=== PATIENT | female | born 2000 | race Caucasian/White ===

== ENCOUNTER → 2020-09-05 | Outpatient (CLI) | payer OTHER, SELFPAY ==
[2020-09-05 14:38] VITALS: BMI 22.4
[2020-09-05 18:32] LABS: Chlamydia Trachomatis by PCR Negative (Negative); Neisserai gonorrhoeae by PCR Negative (Negative); Probe Check PASS; Sample Adequacy Control PASS; Specimen Processing Control PASS
== END | disposition home or self-care (01) ==
LOC: LABSPEC 15:38
PROVIDERS: PCP Pediatrics; Referring Provider Nurse Practitioner Women's Health; Visit Provider Nurse Practitioner Women's Health
DX: Z11.3 Encounter for screening for infections with a predominantly sexual mode of transmission (principal)
CPT/HCPCS: 87491; 87591

== ENCOUNTER → 2021-09-06 | Outpatient (CLI) | payer OTHER, SELFPAY ==
[2021-09-11 01:06] LABS: Chlamydia By Nucleic Acid AMP Negative (Negative)
[2021-09-11 09:13] LABS: Gonococcus By Nucleic Acid AMP Negative (Negative)
[2021-09-12 16:58] LABS: HPV Reflexed? NOT INDICATED
== END | disposition home or self-care (01) ==
LOC: LABSPEC 16:23
PROVIDERS: PCP Pediatrics; Visit Provider Nurse Practitioner Women's Health
DX: Z12.4 Encounter for screening for malignant neoplasm of cervix (principal); Z11.3 Encounter for screening for infections with a predominantly sexual mode of transmission
CPT/HCPCS: 87491; 87591; 88175; G0145

== ENCOUNTER → 2024-09-28 | Outpatient (CLI) | payer OTHER, SELFPAY ==
--- OUTSIDE RECORDS SUMMARY | 2024-09-28 21:24 | XMS RPT_ITS | CCD ---
Author Organization [facility] Care Team Providers Care Forensic Engineer Name Role Phone Rufus Martinez Referring Unavailable Rufus Martinez Primary Care Unavailable Lenore Au NP Attending Unavailable Juan MCCLOUD, Dr. Rufus Clark Primary Care Provider Juan MCCLOUD, Dr. Rufus Clark Referring Provider Roe GIANG-CLenore Attending Provider Allergies Allergy Classification Reported Allergen(s) Allergy Type Date of Onset Reaction(s) Facility (1 source) Amoxicillin Drug Allergy 09-25-2023 [facility] (1 source) Penicillin Drug Allergy 09-25-2023 [facility] (1 source) polymyxin B Drug allergy (disorder) 09-25-2023 [facility] (1 source) Amoxicillin Drug Allergy 09-28-2024 [facility] (1 source) Penicillin G Drug Allergy 09-28-2024 [facility] (1 source) Polymyxin B Drug Allergy 09-28-2024 [facility] Medications Current Medications Medication Drug Class(es) Dates Sig (Normalized) Sig (Original) [place] (Nk) (1 source) Start: 09-28-2024 [place] (Nk) A ctive September 28, 2024 12:00am Completed/Discontinued Medications Medication Drug Class(es) Dates Sig (Normalized) Sig (Original) Desog-E.Estradiol/ E.Estradiol (1 source) Progestin, Estrogen Start: 01-28-2017 End: 03-26-2017 take 0.15 tablet by mouth once daily Desog-E.Estradiol/E .Estradiol (Loganiva (28)) 0.15-0.02 mgx21 /0.01 mg x 5 tablet Discontinued 1 {tbl} PO daily 28 January 28, 2017 1:00am March 26, 2017 4:05pm Drospirenone-E.Est radiol-Lm.Fa (10 sources) Progestin, Estrogen Start: 04-11-2024 End: 09-28-2024 Drospirenone-E.Estr adiol-Lm.Fa 3-0.02-0.451 mg (24) (4) tablet Discontinued 1 {tbl} PO DAILY 84 2 April 11, 2024 3:41pm September 28, 2024 3:29pm Start: 09-25-2023 End: 04-11-2024 Drospirenone-E.Estradiol-Lm. Fa 3-0.02-0.451 mg (24) (4) tablet Discontinued 1 {tbl} PO DAILY 84 4 September 25, 2023 3:51pm April 11, 2024 3:41pm Start: 11-13-2022 End: 09-25-2023 Drospirenone-E.Estradiol-Lm. Fa 3-0.02-0.451 mg (24) (4) tablet Discontinued 1 {tbl} PO DAILY 84 4 November 13, 2022 4:19pm September 25, 2023 3:51pm Start: 09-25-2021 End: 11-13-2022 Drospirenone-E.Estradiol-Lm. Fa 3-0.02-0.451 mg (24) (4) tablet Discontinued 1 {tbl} PO DAILY 84 4 September 25, 2021 12:21pm November 13, 2022 4:19pm Start: 09-06-2021 End: 09-25-2021 Drospirenone-E.Estradiol-Lm. Fa 3-0.02-0.451 mg (24) (4) tablet Discontinued 1 {tbl} PO DAILY 84 4 September 06, 2021 3:10pm September 25, 2021 12:21pm Start: 01-31-2021 End: 09-06-2021 Drospirenone-E.Estradiol-Lm. Fa 3-0.02-0.451 mg (24) (4) tablet Discontinued 1 {tbl} PO DAILY 84 2 January 31, 2021 9:04am September 06, 2021 3:10pm Start: 09-05-2020 End: 01-31-2021 Drospirenone-E.Estradiol-Lm. Fa 3-0.02-0.451 mg (24) (4) tablet Discontinued 1 {tbl} PO DAILY 84 4 September 05, 2020 2:50pm January 31, 2021 9:04am Start: 08-17-2020 End: 09-05-2020 Drospirenone-E.Estradiol-Lm. Fa 3-0.02-0.451 mg (24) (4) tablet Discontinued 1 {tbl} PO DAILY 84 0 August 17, 2020 11:04am September 05, 2020 2:50pm Start: 06-23-2019 End: 08-17-2020 Drospirenone-E.Estradiol-Lm. Fa 3-0.02-0.451 mg (24) (4) tablet Discontinued 1 {tbl} PO DAILY 84 4 June 23, 2019 9:30am August 17, 2020 11:04am Start: 05-05-2018 End: 06-23-2019 Drospirenone-E.Estradiol-Lm. Fa 3-0.02-0.451 mg (24) (4) tablet Discontinued 1 {tbl} PO DAILY 84 4 May 05, 2018 12:00am June 23, 2019 9:30am Norethindrone-E.Estradiol-Ir on (2 sources) Estrogen Start: 06-24-2017 End: 05-05-2018 take 1 tablet by mouth once daily Norethindrone-E.Estradiol-Iron () 1 mg-20 mcg (24)/75 mg (4) tablet Discontinued 1 {tbl} PO daily 84 June 24, 2017 3:11pm May 05, 2018 3:03pm take only active pills discard inactive start new pack immediately Start: 03-26-2017 End: 06-24-2017 Norethindrone-E.Estradiol-Ir on () 1 mg-20 mcg (24)/75 mg (4) tablet Discontinued 1 {tbl} PO daily 28 3 March 26, 2017 1:00am June 24, 2017 3:12pm Problems Problem Classification Problem Date Documented Da te Episodic/Chronic Menstrual disorders (1 source) Menorrhagia; Translations: [Excessive and frequent menstruation with regular cycle] 01-28-2017 Chronic Other gastrointestinal disorders (1 source) Celiac disease; Translations: [Celiac disease] 09-12-2022 Chronic Vital Signs Date Time Vital Sign Value Performing Clinician Ashley desirae 09-28-2024 15:27-0400 Body height 160.[address] Rufus Martinez MD Work Phone: [facility] 09-28-2024 15:27-0400 Body mass index (BMI) [Ratio] 23.6 kg/m2 Dr. Rufus Martinez MD Work Phone: [facility] 09-28-2024 15:27-0400 Body weight 60.[address] Rufus Martinez MD Work Phone: [facility] 09-28-2024 15:27-0400 Diastolic blood pressure 73 mm[Hg] Dr. Rufus Martinez MD Work Phone: [facility] 09-28-2024 15:27-0400 Systolic blood pressure 106 mm[Hg] Dr. Rufus Martinez MD Work Phone: [facility] Encounters Encounter Date Encounter Type Care Provider Facility Start: 09-28-2024 End: 09-28-2024 Patient encounter procedure Lenore Au INDUSTRIAL SPECIALIST-C -[facility] Work Phone: Start: 09-28-2024 End: 09-28-2024 Patient encounter status Lenore Au INDUSTRIAL SPECIALIST-C [facility] Start: 09-28-2024 End: 09-28-2024 ambulatory Rufus Martinez Facility[place] Plan of Treatment Date Care Activity Detail Author Liquid based cervical cytology screening [facility] Payers Date Payer Category Payer Self-pay 2024 Private Health Insurance [id number] 2016 Unknown [id number] Unknown [id number] Unknown [id number] Social History Date Type Detail Facility Start: 09-28-2024 Tobacco smoking stat us MNIS Never smoked tobacco (finding) [facility] Start: 2000 Sex Assigned At Female [facility] Progress note 09-28-2024 Note Date & Type Note Facility 09-28-2024 Progress note [facility] Progress note 09-28-2024 Note Date & Type Note Facility 09-28-2024 Progress note Note Date/Time September 28, 2024 3:44pm [facility] [address] [place] [address], [address] [place] [address] OFFICE VISIT Date of Service: 09/28/24 MR#: [id number] Acct: [id number] Name: ROSALVA STEINBERG Rep #: [id number] : 2000 Provider: BERT Au Age/Sex: 24/F Location: [facility] Status: Signed Intake Vital Signs 09/25/23 15:45 09/28/24 15:27 Height 5 ft 3 in 5 ft 3 in Weight: 133 lb 7 oz BMI 23.6 BP 106/73 Intake Visit Reasons: Annual (LUMP MAKER) Loader Machine Required: No Is patient in pain?: No Allergies amoxicillin Allergy (Mild, Verified 09/28/24 15:35) Hives penicillin G Allergy (Mild, Verified 09/28/24 15:35) Hives polymyxin B Allergy (Mild, Verified 09/28/24 15:35) Hives Medications ?Medication ?Instructions ?Recorded ?Confirmed ?Type NK 09/28/24 09/28/24 History Is last menstrual period known: Yes Last Menstrual Period: 08/27/24 Post menopausal: No Patient : No : No Control Method: condoms [facility] Medical History Celiac disease Surgical History History of wisdom tooth extraction, class II edentulism Social History (Updated 09/28/24 @ 15:43 by BERT Turner NP) adopted: No household members: spouse number of children: 0 current occupational status: employed current occupation: [employer] sexually active: Yes Smoking Status: Never smoker alcohol intake: current alcohol intake frequency: holidays/special occasions only substance use type: does not use caffeine: No frequency: 3-4 times per week rudolph/nondenominational: Zoroastrian seatbelt use: always do you feel safe at home: Yes 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 [employer]. 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 Off OCP X 1 months. Using condoms. May try for next year. July 2024. Last PAP: 2021; normal. History of abnormal PAP: no Last mammogram: age 40 History of abnormal mammogram: n/a Colon cancer screening: age 45 Other preventative health care screenings: Dr Rowley Female Reproductive History Last Menstrual Period: 08/27/24 Cycle Length: 21-35 Questions: metrorrhagia: No, sexually active: Yes, dyspareunia: No and PCB: No ROS Const Constitutional: Denies fatigue, weight gain or weight loss Cardio Card: Denies chest pain Resp Resp: Denies cough or dyspnea on exertion GI GI: Denies abdominal pain, bloating, change in stool character, constipation or vomiting : Reports as per HPI; Denies difficulty voiding, pelvic pain, urinary frequency, urinary incontinence,urinary urgency, vaginal discharge or vaginal pruritus Exam Const General: cooperative, healthy appearing, no acute distress and well developed Orientation: alert, oriented to person and oriented to place HENMT Head: normal to inspection Neck Neck: normal visual inspection Thyroid: thyroid normal Lymphatic: no lymphadenopathy noted Chest Breast inspection: normal inspection of the breasts and normal inspection of theaxillae Breast palpation: normal palpation of the breasts, normal palpation of the axillae and no axillary lymphadenopathy Resp Effort & Inspection: normal respiratory effort GI Palpation: soft, no masses and nontender Rectal Exam: deferred External Female Exam: normal external appearance and normal appearance of the urethra Urethra: normal appearance of the urethra and normal palpation Speculum Exam - Vagina: normal appearance of the vagina and normal vaginal discharge Speculum Exam - Cervix: normal appearance of the cervix Bimanual Exam- Vagina & Uterus: normal bimanual exam, uterine size normal, uterine shape normal and non-tender Bimanual Exam- Adnexa, other: normal adnexae, no masses, normal and non-tender Pelvic Support: normal Neuro General: patient alert and patient oriented x3 Psych Affect: normal affect Coding Level of Care Code Off vis,est,prev 18-39yrs Diagnoses Encounter for gynecological examination without abnormal finding Z01.419 Gynecological examination findings: abnormal findings ABSENT Assessment and Plan Assessment and Plan (1) Encounter for routine gynecological examination: Qualifiers: Gynecological examination findings: abnormal findings ABSENT Qualified Code(s): Z01.419 - Encounter for gynecological examination (general) (routine) without abnormal findings Orders: Orders PAP I-G w/rfx hrHPV-Aptima Today Z12.4 - Encounter for screening for malignant neoplasm of cervix Plan Completed breast and pelvic exam Reviewed diet and exercise Pap thin prep pap start vitamin breast self exam encouraged monthly Contraception condoms RTO 1 year, prn with problems Lenore Au SIGN HANGER 09/28/24 1544 <Electronically signed by Lenore quezada INDUSTRIAL SPECIALIST INDUSTRIAL SPECIALIST-C> Date _ Lenore Au INDUSTRIAL SPECIALIST INDUSTRIAL SPECIALIST-C Cosigner Signature: Date (if applicable) CC: ~ [facility] Work Phone: Evaluation note Note Date & Type Note Facility Evaluation note Diagnosis Onset Date Resolution Encounter for routine gynecological examination noneactive September 28 3:25pm [facility] Work Phone: Reason for referral (narrative) Note Date & Type Note Facility Reason for referral (narrative) No reason for referral information available [facility] Work Phone: Summary Purpose Family History No Family History Records Found Advance Directives No Advanced Directives Records Found Chief Complaint and Reason for Visit Chief Complaint Admit Date Annual (LUMP MAKER) September 28, 2024 3: 25pm Reason for Visit Admit Date Encounter for routine gynecological exam ination September 28, 2024 3:25pm Additional Source Comments INFORMATION SOURCE (unrecogn ized section and content) DATE CREATED AUTHOR 09/25/2024 [facility] Care Teams (unrecognized sec tion and content) Team Status: Active Member Role/Relationship Status Dates Dr. Rufus Martinez MD Family Provider Active Dr. Rufus Martinez MD Primary Care Provider Active Team Status: Inactive Member Role/Relationship Status Dates Dr. Rufus Martinez MD Primary Care Provider Active Start: September 28, 2024 End: September 28, 2024 Dr. Rufus Martinez MD Referring Provider Active Start: September 28, 2024 End: September 28, 2024 Lenore Au NP, INDUSTRIAL SPECIALIST-C Attending Provider Active Start: September 28, 2024 End: September 28, 2024 Goals (unrecognized section and content) Goals may be documented in a n alternate section FOR RECORDS PERTAINING TO PATIENTS WHO ARE OR HAVE BEEN ENROLLED IN A CHEMICAL DEPENDENCY/SUBSTANCEABUSE PROGRAM, SOME INFORMATION MAY BE OMITTED. This clinical summary was aggregated from multiple sources. Caution should be exercised in using it in the provision of clinical care. This summary normalizes information from multiple sources, and as a consequence, information in this document may materially change the coding, format and clinical context of patient data. In addition, data may be omitted in some cases. CLINICAL DECISIONS SHOULD BE BASED ON THE PRIMARY CLINICAL RECORDS. [employer] provides no warranty or guarantee of the accuracy or completeness of information in this document.
--- OUTSIDE RECORDS SUMMARY | 2024-09-28 21:24 | XMS RPT_ITS | CCD ---
Author Organization [facility] Care Team Providers Care Sweeping Compound Blender Name Role Phone Rufus Martinez Referring Unavailable Rufus Martinez Primary Care Unavailable Lenore Au NP Attending Unavailable Juan MCCLOUD, Dr. Rufus Clark Primary Care Provider Juan MCCLOUD, Dr. Rufus Clark Referring Provider Roe GIANG-CLenore Attending Provider Allergies Allergy Classification Reported Allergen(s) Allergy Type Date of Onset Reaction(s) Facility (1 source) Amoxicillin Drug Allergy 09-25-2023 [facility] Repository (1 source) Penicillin Drug Allergy 09-25-2023 [facility] Rep[facility] (1 source) polymyxin B Drug allergy (disorder) 09-25-2023 [facility] Rep[facility] (1 source) Amoxicillin Drug Allergy 09-28-2024 [facility] (1 source) Penicillin G Drug Allergy 09-28-2024 [facility] (1 source) Polymyxin B Drug Allergy 09-28-2024 [facility] Medications Current Medications Medication Drug Class(es) Dates Sig (Normalized) Sig (Original) [place] (Nk) (1 source) Start: 09-28-2024 [place] (Nk) A ctive September 28, 2024 12:00am [...] cm Dr. Rufus Martinez MD Work Phone: [facility] 09-28-2024 15:27-0400 Body mass index (BMI) [Ratio] 23.6 kg/m2 Dr. Ruufs Martinez MD Work Phone: [facility] 09-28-2024 15:27-0400 Body weight 60.[address] Rufus Martinez MD Work Phone: [facility] 09-28-2024 15:27-0400 Diastolic blood pressure 73 mm[Hg] Dr. Rufus Martinez MD Work Phone: [facility] 09-28-2024 15:27-0400 Systolic blood pressure 106 mm[Hg] Dr. Rufus Martinez MD Work Phone: [facility] Encounters Encounter Date Encounter Type Care Provider Facility Start: 09-28-2024 End: 09-28-2024 Patient encounter procedure Lenore Au CONE BAKER MACHINE-C -[facility] Work Phone: Start: 09-28-2024 End: 09-28-2024 Patient encounter status Lenore Au CONE BAKER MACHINE-C [facility] Start: 09-28-2024 End: 09-28-2024 ambulatory Rufus Martinez Facility:[facility] Plan of Treatment Date Care Activity Detail Author Liquid based cervical cytology screening [facility] Payers Date Payer Category Payer Self-pay 2024 Private Health Insurance [id number] 2016 Unknown [id number] Unknown [id number] Unknown [id number] Social History Date Type Detail Facility Start: 09-28-2024 Tobacco smoking stat us NDIS Never smoked tobacco (finding) [facility] Start: 2000 Sex Assigned At Female [facility] Progress note 09-28-2024 Note Date & Type Note Facility 09-28-2024 Progress note [facility] Progress note 09-28-2024 Note Date & Type Note Facility 09-28-2024 Progress note Note Date/Time September 28, 2024 3:44pm [facility] [address] [place] [address], [address] [place] [address] OFFICE VISIT Date of Service: 09/28/24 MR#: [id number] Acct: [id number] Name: ROSALVA STEINBERG Rep #: [id number] : 2000 Provider: BERT Au Age/Sex: 24/F Location: [facility] Status: Signed Intake Vital Signs 09/25/23 15:45 09/28/24 15:27 Height 5 ft 3 in 5 ft 3 in Weight: 133 lb 7 oz BMI 23.6 BP 106/73 Intake Visit 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) Mat Machine Operator Required: No Is patient in pain?: No Allergies amoxicillin Allergy (Mild, Verified 09/28/24 15:35) Hives penicillin G Allergy (Mild, Verified 09/28/24 15:35) Hives polymyxin B Allergy (Mild, Verified 09/28/24 15:35) Hives Medications ?Medication ?Instructions ?Recorded ?Confirmed ?Type NK 09/28/24 09/28/24 History Is last menstrual period known: Yes Last Menstrual Period: 08/27/24 Post menopausal: No Patient : No : No Control Method: condoms [facility] Medical History Celiac disease Surgical History History of wisdom tooth extraction, class II edentulism Social History (Updated 09/28/24 @ 15:43 by BERT Turner NP) adopted: No household members: spouse number of children: 0 current occupational status: employed current occupation: [employer] sexually active: Yes Smoking Status: Never smoker alcohol intake: current alcohol intake frequency: holidays/special occasions only substance use type: does not use caffeine: No frequency: 3-4 times per week rudolph/spiritism: Sabianist seatbelt use: always do you feel safe at home: Yes 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 [employer]. 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 Elective [...] 1 year, prn with problems Lenore Au AGRICULTURAL RESEARCHER 09/28/24 1544 <Electronically signed by Lenore quezada CONE BAKER MACHINE CONE BAKER MACHINE-C> Date _ Lenore Au CONE BAKER MACHINE CONE BAKER MACHINE-C Cosigner Signature: Date (if applicable) CC: ~ [facility] Work Phone: Evaluation note Note Date & Type Note Facility Evaluation note Diagnosis Onset Date Resolution Encounter for routine gynecological examination noneactive September 28 3:25pm [facility] Work Phone: Reason for referral (narrative) Note Date & Type Note Facility Reason for referral (narrative) No reason for referral information available [facility] Work Phone: Summary Purpose Family History No Family History Records Found Advance Directives No Advanced Directives Records Found Chief Complaint and Reason for Visit Chief Complaint Admit Date Annual (REPORTING SPECIALIST) September 28, 2024 3: 25pm Reason for [...] End: September 28, 2024 Lenore Au NP, CONE BAKER MACHINE-C Attending Provider Active Start: September 28, 2024 [...] BE BASED ON THE PRIMARY CLINICAL RECORDS. [employer] provides no warranty or guarantee of the accuracy or completeness of information in this document.
== END | disposition home or self-care (01) ==
LOC: LABSPEC 16:07
PROVIDERS: PCP Pediatrics; Visit Provider Nurse Practitioner Women's Health
DX: Z12.4 Encounter for screening for malignant neoplasm of cervix (principal)
CPT/HCPCS: 88175; G0145

== ENCOUNTER 2024-12-11 14:21 | Emergency (ER) | payer OTHER, SELFPAY ==
[2024-12-11 14:22] VITALS: BP 128/88; PULSE 89; RESP 17; TEMP 36.8; O2SAT 100; BMI 23.3
[2024-12-11 14:28] VITALS: BP 122/88; PULSE 88; RESP 16; TEMP 36.8; O2SAT 98
--- NOTE | 2024-12-11 14:34 | EDS_ITS ---
HPI History of Present Illness Chief Complaint: Abd Pain Detail of Chief Complaint: Left lower quadrant/inguinal pain Informant: patient Onset/Context/Timing Onset: Days (4 days ago) Context: Sudden Onset Timing: Intermittent and Lasts (Up to 5 to 6-hour) Quality: Dull achy Location: Left lower quadrant superior of the inguinal ligament Current Severity: Mild Maximum Severity: Moderate Worsened by: Nothing specific, states it is worse at night Relieved by: Nothing Associated Symptoms Associated Symptoms: None Narrative Narrative: Patient is a 24-year-old female whose last normal menstrual period was November 29 who presents with left lower quadrant pain has been intermittent for the past 4 days. Can last up to 5 to 6 hours. There are no exacerbating, precipitating or alleviating factors other than it is worse at night. She denies fever, chills night sweats. She denies history of ovarian cyst, endometriosis, STI, vaginal discharge or vaginal bleeding. Has never had an abnormal Pap smear. Patient denies dysuria, frequency, urgency or hematuria. Patient denies history of renal or ureterolithiasis. There is no family history of either either. There is no history of trauma direct or indirect. She has not noted a rash. She does have a bump she felt and localizes near the superior iliac spine on the left. Prior similar symptoms: No Recent Illness/Hospitalization: No PFSH PFSH Medical History Celiac disease Home Medications ?Medication ?Instructions ?Recorded ?Last Taken ?Type naproxen 500 mg tablet (Naprosyn) 500 mg PO BID PRN pa in #10 tabs 12/11/24 Unknown Rx Allergy/AdvReac Type Severity Reaction Status Date / Time amoxicillin Allergy Mild Hives Verified 12/11/24 14:22 penicillin G Allergy Mild Hives Verified 12/11/24 14:22 polymyxin B Allergy Mild Hives Verified 12/11/24 14:22 Surgical History History of wisdom tooth extraction, class II edentulism Social History adopted: No household members: spouse housing: house number of children: 0 current occupational status: employed current occupation: [employer] sexually active: Yes Smoking Status: Never smoker alcohol intake: current alcohol intake frequency: holidays/special occasions only substance use type: does not use caffeine: No frequency: 3-4 times per week rudolph/sabianist: Mandaen seatbelt use: always do you feel safe at home: Yes 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 Constitutional Constitutional ED: Denies chills, fever(s), subjective, sweats or weight loss Gastrointestinal Gastrointestinal: Reports abdominal pain; Denies constipation, diarrhea, melena, nausea or vomiting Genitourinary Genitourinary ED: Reports LMP (females 10-50) Details: Comment: (November 29 and ); Denies dysuria, hematuria or urinary frequency Musculoskeletal Musculoskeletal: Denies arthralgias, back pain, myalgias or neck pain Integumentary Denies rash Hematologic/Lymphatic Hematologic/Lymphatic: Reports systems reviewed and no addt'l complaints, except as documented EXAM Physical Exam Const Vital Signs: 12/11/24 14:22 12/11/24 14:28 12/11/24 16:22 Temperature 98.3 F 98.3 F Temperature Source Oral Oral Pulse Rate 89 88 81 Respiratory Rate 17 16 16 Blood Pressure 128/88 H 122/88 H 107/76 Blood Pressure Mean 101 99 86 Pulse Ox 100 98 100 Oxygen Delivery Method Room Air Room Air Room Air Positive well nourished and well developed General Appearance ED: well developed, NAD and pallor; Negative for cyanotic or diaphoretic HEENT Reports moist mucous membranes HEENT Narrative: Grossly normal. Eyes PERRL and EOMs intact bilaterally General Eye ED: Negative for scleral icterus Resp normal respiratory effort Cardio regular rate and regular rhythm GI normal to inspection, nondistended, normoactive bowel sounds, non-distended and no masses; Negative for non-tender or hepatosplenomegaly GI Narrative: Tenderness left lower quadrant 2 fingerbreadths above the inguinal ligament. There is guarding in this area. There is no palpable mass. Bowel sounds are diminished. There is slight tympany noted. There is no peritoneal findings. There is some tenderness in the left inguinal area. There is no palpable lymph nodes or mass. Narrative: External genitalia normal. Vaginal mucosa is normal. Patient cervix is oblong and not consistent with a normal part of cervix. She has tenderness of the uterus on palpation. She guards and difficult to assess size. She also complains of right and left adnexal pain greater left. Because of patient guarding unable to determine size of her ovaries. Back/Spine Back/Spine Narrative: Patient has a lipoma near the posterior left superior iliac spine. The nodule is firm smooth mobile and nontender. There is no abnormality of the skin overlying the lipoma. There is no retraction. Extremity normal to inspection Neuro oriented x3 and CN's II-XII intact bilaterally Sensorium / Orientation: alert Psych mental status grossly normal Skin no rashes or lesions noted, no wounds and skin turgor normal General Skin Exam: elasticity normal and pallor; Negative for jaundice MDM MDM MDM Narrative Medical decision making narrative: Differential diagnosis would include celiac disease, ovarian cyst, since patient is no longer using form of control need to consider , pain of unknown etiology atypical presentation for urinary tract infection OB records were reviewed. Patient has never had an abnormal Pap smear. Her most recent annual exam was August of this year. Will obtain ultrasound to assess cause of patient's pain. History & Record Review Additional record(s) reviewed:: Prior outpatient record ([facility] notes reviewed. [facility] note from August/September.) Lab Data Attestation: I reviewed the patient's lab results. Lab results narrative: CBC is unremarkable. Serum test is negative. UA is negative. Labs: Laboratory Results - last 24 hr 12/11/24 12/11/24 14:41 14:49 WBC 9.1 RBC 4.76 Hgb 13.1 Hct 39.9 MCV 83.8 MCH 27.5 MCHC 32.8 RDW Std Deviation 39.1 RDW Coeff of Tanya 12.9 Plt Count 339 MPV 9.5 Immature Gran % (Auto) 0.200 Neut % (Auto) 54.9 Lymph % (Auto) 32.9 [place] % (Auto) 7.8 Eos % (Auto) 3.3 Baso % (Auto) 0.9 Absolute Neuts (auto) 5.0 Absolute Lymphs (auto) 3.00 Nucleated RBC % 0 Serum , Qual NEGATIVE Urine Color Yellow Urine Clarity Clear Urine pH 6.0 Ur Specific [place] 1.015 Urine Protein 15 H Urine Glucose (UA) Normal Urine Ketones Negative Urine Occult Blood Negative Urine Nitrite Negative Urine Bilirubin Negative Urine Urobilinogen Normal Ur Leukocyte Esterase Negative Radiography Diagnostic Testing: Clinical Impression(s) from Imaging Studies Transvaginal US 12/11/24 15:32 IMPRESSION: No acute ovarian torsion during this exam. Left ovary contains a complex cyst which contains a smaller cyst within measuring 1.7 x 1.3 x 1.3 cm. Reading Location: [facility] Patient has a complex left ovarian cyst. This is probably the cause of her pain. Will treat with NSAIDs. Patient and were informed of results and plan. Discharge Plan Triage Chief Complaint: Abd Pain ED Provider: Crow Billings Dx/Rx/DC Orders Clinical Impression: Complex cyst of left ovary, Left lower quadrant abdominal pain, Celiac disease Instructions: ED Ovarian Cyst Prescriptions: New naproxen [Naprosyn] 500 mg tablet 500 mg PO BID PRN (Reason: pain) Qty: 10 0RF Primary Care Provider: Juli Rowley Referrals: Juli Rowley MD [Primary Care Provider, Internal Medicine] Activity Restrictions/Additional Instructions: Follow-up with your dot etcher as needed Print Language: Polish Disposition Disposition: Home, Self Care
[2024-12-11 14:49] LABS: Hematocrit 39.9 % (37-47); Hemoglobin 13.1 g/dL (12.0-15.0); Immature Granulocytes Count 0.020 X10^3/uL (0.0-0.0); Mean Corp Hgb Conc 32.8 g/dL (32-36); Mean Corpuscular Volume 83.8 fL (81-99); Mean Platelet Vol. 9.5 fl (6.2-12.0); NRBC Flagged by Analyzer 0 % (0-5); Platelet Count 339 K/mm3 (150-450); RBC Distribution Width CV 12.9 % (11.6-14.6); RBC Distribution Width SD 39.1 fl (35.1-43.9); Red Blood Count 4.76 M/mm3 (4.2-5.4); White Blood Count 9.1 K/mm3 (4.4-11.0)
[2024-12-11 15:06] LABS: Color, Urine Yellow (Yellow); Glucose, Dipstick Normal (Normal); Ketone-Dipstick Negative (Negative); Leukocyte Esterase-Dipstick Negative /ul (Negative); Nitrite-Dipstick Negative (Negative); Occult Blood-Urine Negative /ul (Negative); Protein-Dipstick 15 mg/dl (Negative); Specific Gravity, Urine 1.015 (1.002-1.030); Urine Bilirubin Dipstick Negative (Negative)
[2024-12-11 15:15] LABS: Internal QC Validated? YES +Cl - CLEAR BKGD; Pregnancy, Serum, hCG Quali. NEGATIVE Negative
[2024-12-11 15:16] LABS: Record Kit Lot#, Serum Preg. 980607
--- NOTE | 2024-12-11 15:32 | US_ITS ---
PROCEDURE: TRANSVAGINAL NON- 12/11/2024 REASON FOR EXAM: LEFT ADNEXAL PAIN, CHECK BLOOD FLOW TECHNIQUE: Procedure Code: USTVAG Modality: US Procedure: TRANSVAGINAL NON- COMPARISON: None FINDINGS: Uterus measures 7.4 x 4.2 x 2.9 cm it is anteverted position. Endometrial thickness is 5 mm. Hyperechoic endometrium. Cervix is within normal limits. No IUD is noted. Right ovary measures 3.3 x 2.4 x 1.9 cm and left ovary measures 4.2 x 2.9 x 2.8 cm. Normal symmetrical vascular flow within bilateral ovaries. Left ovary contains a complex cyst which contains a smaller cyst within measuring 1.7 x 1.3 x 1.3 cm. No significant free fluid noted. US/Transvaginal Non- IMPRESSION: No acute ovarian torsion during this exam. Left ovary contains a complex cyst which contains a smaller cyst within measuri ng 1.7 x 1.3 x 1.3 cm. Reading Location: [id number]
[2024-12-11 16:22] VITALS: BP 107/76; PULSE 81; RESP 16; O2SAT 100
[2024-12-11 18:29] VITALS: BP 110/70; PULSE 65; RESP 16; TEMP 36.8; O2SAT 100
== END 2024-12-11 18:12 | disposition home or self-care (01) ==
PROVIDERS: Emergency Provider Emergency Medicine; PCP Internal Medicine; Visit Provider Emergency Medicine
DX: R10.32 Left lower quadrant pain (principal); N83.202 Unspecified ovarian cyst, left side; K90.0 Celiac disease
CPT/HCPCS: 76830; 81002; 84703; 85025; 99282; A4216

== ENCOUNTER → 2025-02-04 | Outpatient (CLI) | payer OTHER, SELFPAY ==
--- OUTSIDE RECORDS SUMMARY | 2025-02-04 07:32 | XMS RPT_ITS | CCD ---
Author Organization [facility] Care Team Providers Care Trade Clerk Name Role Phone Doschula Keira WHITNEY Unavailable Geena Espinoza Unavailable Keira Espino DC Unavailable Rufus Martinez MD Primary Care Provider Rufus Martinez MD Primary Care Provider Rufus Martinez MD Primary Care Provider Varghese Rowley MD Primary Care Provider Varghese Rowley MD Primary Care Provider VARGHESE ROWLEY Primary Care Unavailable PROVIDER, UNKNOWN Referring Unavailable Rufus Martinez MD Primary Care Provider Dr. Rufus Martinez MD Primary Care Provider [phone] Dr. Rufus Martinez MD Referring Provider Lenore Waldron Attending Provider [phone] BORA VARGHESE D Primary Care Unavailable GHASSAN LASSITER Attending Unavailable TALYAAMPSHANTEL VARGHESE D Attending Unavailable TALYAAMPSHANTEL, VARGHESE D Primary Care Unavailable Bora Varghese D Referring Unavailable Talyaampshantel, Varghese D Primary Care Unavailable Talia Mak Attending Unavailable Talyaampshantel, Varghese D Primary Care Unavailable Crow Billings Attending Unavailable Lenore Au NP Attending Unavailable Rufus Martinez Primary Care Unavailable Lenore Au NP Attending Unavailable Rufus Martinez Referring Unavailable Rufus Martinez Primary Care Unavailable Allergies Allergy Classification Reported Allergen(s) Allergy Type Date of Onset Reaction(s) Facility (8 sources) penicillin v drug allergy [facility] Work Phone: (20 sources) Amoxicillin; Translations: [AMOXICILLIN] Drug Allergy 11-27-2004 Rash, [facility] Work Phone: (20 sources) Polymyxin B / Trimethoprim; Translations: [POLYMYXIN B SULF-TRIMETHOPRI M] Drug Allergy 03-24-2009 [facility] Work Phone: (2 sources) Penicillin G Drug Allergy 09-28-2024 [facility] (2 sources) Polymyxin B Drug Allergy 09-28-2024 [facility] (1 source) Amoxicillin Drug Allergy 12-24-2024 [facility] (1 source) Penicillin Drug Allergy 12-24-2024 [facility] (1 source) polymyxin B Drug allergy (disorder) 12-24-2024 [facility] Medications Current Medications Medication Drug Class(es) Dates Sig (Normalized) Sig (Original) Administered Medications Medication Order MAR Action Action Date Dose Rate Site tuberculin skin test (TST-PPD), purified protein derivative, intradermal Intradermal Given 06/12/2023 15:51 EDT 0.1 mL Left arm (1 source) Administered Medications Medication Order MAR Action Action Date Dose Rate Site tuberculin skin test (TST-PPD), purified protein derivative, intradermal Intradermal Given 06/12/2023 15:51 EDT 0.1 mL Left arm doxycycline hyclate 100 mg oral tablet (1 source) Tetracycline-cla ss Drug Start: 12-17-2023 End: 12-24-2023 take 1 tablet by mouth twice daily doxycycline (VIBRA-TABS) 100 mg tablet Indications: Rhinosinusitis Take 1 tablet by mouth two times a day for 7 days. 14 tablet 12/17/2023 12/24/2023 Active Multivitamin capsule (20 sources) take 1 capsule by mouth once daily Multivitamin capsule Take 1 capsule by mouth once daily. Active take 1 capsule by mouth once brandie ly Multivitamin capsule Take 1 capsule by mouth once daily. 0 Active Comment on above: Take 1 capsule by [facility] once daily. [place] (Nk) (2 sources) Start: 09-28-2024 [place] (Nk) A ctive September 28, 2024 12:00am Completed/Discontinued Medications Medication Drug Class(es) Dates Sig (Normalized) Sig (Original) Desog-E.Estradiol/ E.Estradiol (2 sources) Progestin, Estrogen Start: 01-28-2017 End: 03-26-2017 take 0.15 tablet by mouth once daily Desog-E.Estradiol/E .Estradiol (Kariva (28)) 0.15-0.02 mgx21 /0.01 mg x 5 tablet Discontinued 1 {tbl} PO daily 28 3 January 28, 2017 1:00am March 26, 2017 4:05pm Drospirenone-E.Est radiol-Lm.Fa (20 sources) Progestin, Estrogen Start: 04-11-2024 End: 09-28-2024 [...] 2022 4:19pm September 25, 2023 3:51pm Start: 12-18-2021 BEYAZ 3-0.02-0 .451 mg (24) (4) tab 12/18/2021 Active Start: 12-18-2021 BEYAZ 3-0.02-0 .451 mg (24) (4) tab Start: 09-25-2021 End: 11-13-2022 Drospirenone-E.Estradiol-Lm. Fa 3-0.02-0.451 [...] 12:00am June 23, 2019 9:30am Norethindrone-E.Estradiol-Ir on (4 sources) Estrogen Start: 06-24-2017 End: 05-05-2018 take 1 tablet by mouth once daily Norethindrone-E.Estradiol-Iron ( Fe 24) 1 mg-20 mcg (24)/75 mg (4) tablet Discontinued 1 {tbl} PO daily 84 4 June 24, 2017 3:11pm May 05, 2018 3:03pm take only active pills discard inactive start new pack immediately Start: 03-26-2017 End: 06-24-2017 Norethindrone-E.Estradiol-Ir on ( 24) 1 mg-20 mcg (24)/75 mg (4) tablet Discontinued 1 {tbl} PO daily 28 3 March 26, 2017 1:00am June 24, 2017 3:12pm fluticasone propionate 0.05 mg/actuat metered dose nasal spray (6 sources) Corticosteroid Start: 07-20-2020 End: 01-17-2022 take 2 spray(s) by mouth once daily fluticasone (FLONASE) 50 mcg/actuation nasal spray Use 2 Sprays in each nostril once daily. Rinse mouth after use. 1 Bottle 0 07/20/2020 01/17/2022 Discontinued Comment on above: Use 2 Sprays in each nostril once daily. Rinse mouth after use. norethindrone-e.e stradiol-iron (BLISOVI 24 FE ORAL) (6 sources) End: 01-17-2022 norethindrone-e.es tradiol-iron (BLISOVI 24 FE ORAL) Take by mouth. 0 01/17/2022 Discontinued norethindrone-e. estradiol-iron (BLISOVI 24 FE ORAL) Take by mouth. 0 Active Comment on above: Take by mouth. PEDIATRIC MULTIPLE VIT-C-FA (7 sources) Start: 12-27-2015 FLINSTONES GUMMIES OMEGA-3 DHA CHEW daily PEDIATRIC MULTIPLE VIT-C-FA [id number] Flaca Travis PEDIATRIC MULTIPLE VIT-C-FA (1 source) Start: 12-27-2015 FLINSTONES GUMMIES OMEGA-3 DHA CHEW daily PEDIATRIC MULTIPLE VIT-C-FA [id number] Flaca Travis Problems Active Problems Problem Classification Problem Date Documented Da te Episodic/Chronic Abdominal pain (6 sources) Abdominal pain; Translations: [Unspecified abdominal pain] Onset: 12-11-2024 Episodic Administrative/social admission (2 sources) Patient encounter status; Translations: [Persons encountering health services in other specified circumstances] Episodic Gastrointestinal hemorrhage (2 sources) Blood-tinged feces; Translations: [Melena] Episodic Immunizations and screening for infectious disease (20 sources) Tuberculosis screening status; Translations: [Encounter for screening for respiratory tuberculosis] Episodic Menstrual disorders (2 sources) Menorrhagia; Translations: [Excessive and frequent menstruation with regular cycle] 01-28-2017 Chronic Other congenital anomalies (8 sources) Congenital anteversion of femur; Translations: [Other specified congenital deformities of hip] Onset: 12-27-2015 12-27-2015 Chronic Other gastrointestinal disorders (20 sources) Celiac disease; Translations: [Celiac disease] Onset: 04-24-2022 Chronic Other gastrointestinal disorders (1 source) Diarrhea; Translations: [Intestinal malabsorption, unspecified] 02-28-2022 Chronic Other gastrointestinal disorders (1 source) Diarrhea; Translations: [Diarrhea, unspecified] Episodic Other lower respiratory disease (1 source) Cough; Translations: [Acute cough] 12-17-2023 Episodic Other screening for suspected conditions (not mental disorders or infectious disease) (1 source) Encounter for screening for malignant neoplasm of cervix; Translations: [Encounter for screening for malignant neoplasm of cervix] Onset: 10-02-2024 Episodic Other skin disorders (2 sources) Mass of neck; Translations: [Localized swelling, mass and lump, neck] 08-05-2023 Episodic Other skin disorders (1 source) Localized swelling, mass and lump, neck; Translations: [Lump on neck] Onset: 08-06-2023 Episodic Other upper respiratory disease (1 source) Congestion of nasal sinus; Translations: [Nasal congestion] 12-17-2023 Episodic Other upper respiratory infections (1 source) Chronic sinusitis, unspecified; Translations: [Unspecified sinusitis (chronic)] 12-17-2023 Chronic Other upper respiratory infections (1 source) Pharyngitis; Translations: [Acute pharyngitis, unspecified] Episodic Ovarian cyst (1 source) Other ovarian cyst, unspecified side; Translations: [Complex ovarian cyst] Onset: 12-15-2024 Episodic Unclassified (1 source) Acute left-sided low back pain without sciatica; Translations: [Acute left-sided low back pain without sciatica] Onset: 12-15-2024 Past or Other Problems Problem Classification Problem Date Documented Da te Episodic/Chronic Cardiac dysrhythmias (7 sources) Palpitations; Translations: [Palpitations] Onset: 10-05-2013 Resolved: 08-26-2015 08-26-2015 Episodic Other bone disease and musculoskeletal deformities (20 sources) Nonallopathic lesion of the pelvic region; Translations: [Segmental and somatic dysfunction] Onset: 11-07-2015 04-30-2016 Episodic Other bone disease and musculoskeletal deformities (2 sources) Segmental and somatic dysfunction; Translations: [Segmental and somatic dysfunction of lumbar region] Onset: 11-07-2015 11-07-2015 Episodic Other gastrointestinal disorders (15 sources) Constipation; Translations: [Constipation, unspecified] Onset: 09-26-2011 Resolved: 04-24-2022 09-26-2011 Episodic Other nervous system disorders (1 source) Piriformis syndrome; Translations: [Lesion of sciatic nerve, left lower limb] Onset: 11-07-2015 11-07-2015 Episodic Other non-traumatic joint disorders (20 sources) Acetabular labrum tear; Translations: [Hip pain] Onset: 12-27-2015 Resolved: 04-26-2023 12-27-2015 Episodic Other non-traumatic joint disorders (1 source) Hip pain; Translations: [Pain in left hip] Onset: 12-27-2015 12-27-2015 Episodic Spondylosis; intervertebral disc disorders; other back problems (15 sources) Sciatica; Translations: [Piriformis syndrome] Onset: 11-07-2015 12-27-2015 Episodic Results Test Name Value Interpretation Reference Range Facility [facility] Visit Reporton 12-24-2024 [facility] Office Visit Report [facility] [address], [address] [place] [address] OFFICE VISIT Date of Service: 12/24/24 MR#: [id number] Acct: [id number] Name: ROSALVA DAUGHERTY Rep #: [id number] 2000 Provider: Dr. Talia davis MD Age/Sex: 24/F [place] [facility] [place] Intake Vital Signs 12/11/24 14:22 12/24/24 11:52 12/24/24 11:54 Height 5 ft 3 in 5 ft 3 in 5 ft 3 in Weight: 132 lb 4 oz BMI 23.4 BP 123/74 H Intake Visit Reasons: E/D f/u cyst w Doc per primary care phys [place] Supervisor Required: No Is patient in pain?: No Allergies amoxicillin Allergy (Mild, Verified 12/24/24 11:52) Hives penicillin G Allergy (Mild, Verified 12/24/24 11:52) Hives polymyxin B Allergy (Mild, Verified 12/24/24 11:52) Hives Medications ???Medication ???Instructions ???Recorded ???Confirmed ???Type NK 12/24/24 12/24/24 History Post menopausal: No Patient : No : No [facility] Medical History Celiac disease Surgical History History of wisdom tooth extraction, class II edentulism Social History adopted: No household members: spouse housing: house number of children: 0 current occupational status: employed current occupation: [employer] sexually active: Yes Smoking Status: Never smoker alcohol intake: current alcohol intake frequency: holidays/special occasions only substance use type: does not use caffeine: No frequency: 3-4 times per week rudolph/alevism: Jainism seatbelt use: always do you feel safe at home: Yes 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. 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 Ovarian Cyst - Presented to the ER on the with pelvic pain; ultrasound revealed a complex cyst on the left ovary measuring 1.7 cm. - ER physician suggested the cyst may have ruptured, but the patient's primary care physician later indicated it had not ruptured due to the absence of free fluid. - Currently, the patient reports no pain. Menstrual History - Reports regular monthly periods. - Discontinued control in August or September; denies heavy periods. - Not actively trying to conceive; using condoms for contraception. - Denies any changes in discharge, odor, or dyspareunia. Past Medical History - Diagnosed with a complex cyst on the left ovary. Subjective Sections: PMHx - Left ovarian cyst Social Hx - Sexual practices: Denies new sexual partners, uses condoms - Diet habits: Uses keto bread ROS: Constitutional: (-) fever Gastrointestinal: (-) nausea, (-) vomiting, (-) abdominal bloating, (-) diarrhea, (-) constipation Genitourinary: (-) pelvic pain, (-) urinary incontinence, (-) urinary urgency, (-) urinary frequency, (-) menorrhagia, (-) vaginal discharge, (-) malodorous vaginal discharge, (-) dyspareunia Musculoskeletal: (-) back pain PhysicalExam: GENERAL: Pleasant; in no apparent distress BREAST: soft, non-tender, symmetric, no dominant mass, normal nipple-areolar complex, no lymphadenopathy, no nipple discharge PULMONARY: normal inspiratory effort ABDOMEN: soft, non-tender, no masses : - PELVIC: external genitalia normal, normal Bartholin's glands, urethra, Lyncourt's glands, no vulvar lesions, no cervical lesions, good vaginal support, physiologic discharge present, normal appearing perineal body and perianal region - BIMANUAL: uterus normal size, shape and consistency, no adnexal masses, non-tender - Patient consent for exam received NEURO: alert and oriented x3 EXTREMITIES: normal Assessment/Plan: # Other and unspecified ovarian cyst (N83.209): - Complex-appearing left ovarian cyst, approximately 1.7 cm, likely hemorrhagic; condition is currently stable. - Advised repeat pelvic ultrasound in mid-January to evaluate for resolution. - No evidence of compromised ovarian blood supply; no surgical intervention indicated at this time. - Recommended prompt re-evaluation if cyst enlarges or pain recurs and persists. # Pelvic and perineal pain (R10.20): - Patient-reported pain has resolved; no current discomfort. - Discussed that intermittent pain could be related to ovulation (mittelschmerz) or hemorrhagic cyst; recommended ibuprofen, naproxen, or similar NSAIDs as needed for future pain episodes. - No additional therapies required unless pain becomes severe or persistent; advised to return for reassessment if symptoms worsen. Patient Instructions: - Take [id number] NSAIDs (naproxen or ibuprofen) as needed for any mid-cycle (ovulation) pain. (more content not included)... Normal [facility] CNOVon 12-15-2024 CNOV Office Visit (INTMWS ) ROSALVA LOPEZ ([id number]) 1 F Date Time Provider Department 12/15/24 5:20 PM VARGHESE ROWLEY INTMWS During your visit today, we recorded the following information about you: Pulse Respiration Blood pressure Weight 66/minute 16/minute 96/72 60.1 kg Varghese Rowley MD 12/15/2024 6:06 PM Signed Subjective Rosalva Lopez is a 24 year old female. HPI Recording using [employer] software for draft documentation of the visit was discussed with the patient/authorized it sales representative; all questions welcomed and answered. Patient/authorized it sales representative agreed to proceed here for yearly exam and follow up appointment. Rosalva Lopez is a 24-year-old female presenting for follow-up after an ER visit for left lower abdominal pain. Rosalva reports experiencing left lower abdominal pain radiating to the back, which began prior to an ER visit. Initially, she visited urgent care, where a UTI was suspected, and she was prescribed naproxen 500 mg BID. However, the pain persisted, leading her to seek further evaluation in the ER. An ultrasound performed in the ER revealed a complex cyst on the left ovary, measuring 1.7 x 1.3 x 1.3 cm, with a smaller cyst within it. The right ovary was normal, and no significant free fluid or signs of torsion were noted. Blood counts were normal, and a urine culture showed no significant growth. Since the ER visit, Rosalva reports significant improvement in pain, with only occasional mild discomfort in the back. She completed the prescribed naproxen and denies any current pain with ambulation or lying down. She also denies nausea, vomiting, or fever but notes a decreased appetite since the onset of pain. 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 Marcanthony) and had a recent Pap test in September, which was normal. She recently discontinued control and reports regular menstrual cycles since then. A test performed in the ER was negative. PAST MEDICAL HISTORY Diagnosis Date Clavicle fracture age 3-4 resolved Constipation 09/26/2011 Croup resolved, frequent as young child Menstrual periods irregular 02/18/2013 Age 13 NEGATIVE HISTORY OF 09/26/2011 Normal Color VIsion Sessile serrated polyp of colon Syncope 02/18/2009 after getting ears pierced Tear of acetabular labrum 12/27/2015 Current Outpatient Medications Medication Sig Multivitamin capsule Take 1 capsule by mouth once daily. nitrofurantoin monohydrate and macrocrystal (MACROBID) 100 mg capsule Take 1 capsule by mouth two times a day for 5 days. (Patient not taking: Reported on 12/15/2024) BEYAZ 3-0.02-0.451 mg (24) (4) tab (Patient not taking: Reported on 12/15/2024) No current facility-administered medications for this visit. ALLERGIES Allergen Reactions Amoxicillin Rash, Hives Polytrim [Polymyxin* Hives Mom reports child used a drop in her ear that had one component of this eye medication and had no reaction but mom thinks she is still allergic to the polytrim eye drops because she had hives when used the eye drops FAMILY HISTORY Problem Relation Age of Onset No Known Problems Mother No Known Problems Father No Known Problems Sister None Other Colon Cancer No Family History Ulcerative Colitis No Family History Crohn's Disease No Family History SOCIAL HISTORY[1] Review of Systems Objective BP 96/72 Pulse 66 Resp 16 Wt 60.1 kg (132 lb 7.9 oz) LMP 11/29/2024 (Exact Date) SpO2 99% BMI 24.23 kg/m? Last 5 Encounter Wt Readings: Date: Wt: 12/15/2024 60.1 kg (132 lb 7.9 oz) 12/11/2024 59.8 kg (131 lb 13.4 oz) 12/17/2023 57.7 kg (127 lb 3.3 oz) 08/05/2023 58.5 kg (129 lb) 06/03/2023 55.8 kg (123 lb) No waist measurement recorded Estimated body mass index is 24.23 kg/m? as calculated from the following: Height as of 08/05/23: 157.5 cm (5' 2). Weight as of this encounter: 60.1 kg (132 lb 7.9 oz). Last 5 Encounter BP Readings: Date: BP: 12/15/2024 96/72 12/11/2024 112/77 12/17/2023 102/64 08/05/2023 108/56 04/26/2023 112/72 Physical Exam Abdominal: Tenderness: There is abdominal tenderness (LLQ; mild). There is no right CVA tenderness, left CVA tenderness or guarding. ASSESSMENT AND PLAN # Complex ovarian cyst (N83.299) # LLQ pain (R10.32) # Acute left-sided low back pain without sciatica (M54.50) - Recent ED visit for left lower quadrant and back pain; initial suspicion of UTI, but urine studies and cultures were negative. - Pelvic ultrasound revealed a complex cyst in the left ovary (1.7 x 1.3 x 1.3 cm) with a smaller cyst within; no significant free fluid, no evidence of torsion, and normal endometrial thickness. - Pain has improved since ED visit; currently minimal back discomfort. - Continue naproxen 500 mg BID as needed for residual pain and inflammation. - Advised patient to foll (more content not included)... Normal [facility] Bacteria Ur Culton Bacteria identified Cx Nom (U) CULTURE, URINE: No growth (<1,000 CFU/ml) Normal [facility] Comment on above: Performed By: #### 6 30-4 #### [facility] CLIA [id number] [address] [place] [address] [place] CBC W/Diff, Automatedon 10-2 Absolute Lymph 3.00 X10 3/uL Normal 0.83-4.51 [facility] Comment on above: Performed By: #### L 100.0100 #### [facility] [address] [place], [place], [id number] Absolute Neut 5.0 X10 3/uL Normal 2.0-7.7 [facility] Comment on above: Performed By: #### L 100.0100 #### [facility] [address] [place], [address] Basophils/100 WBC (Bld) 0.9 % Normal 0-1 [facility] Comment on above: Performed By: #### L 100.0100 #### [facility] [address] [place], [address] Eosinophils/100 WBC (Bld) 3.3 % Normal 0-5 [facility] Comment on above: Performed By: #### L 100.0100 #### [facility] [address] [place], [address] Erythrocyte distribution width (RBC) [Ratio] 12.9 % Normal 11.6-14.6 [facility] Comment on above: Performed By: #### L 100.0100 #### [facility] [address] [place], [address] Hematocrit (Bld) [Volume fraction] 39.9 % Normal 37-47 [facility] Comment on above: Performed By: #### L 100.0100 #### [facility] [address] [place], [address] Hemoglobin (Bld) [Mass/Vol] 13.1 g/dL Normal 12.0-15.0 [facility] Comment on above: Performed By: #### L 100.0100 #### [facility] [address] [place], [address] IG% 0.200 Normal 0.0-0.9 [facility] Comment on above: Result Comment: IG% - Immature Granulocytes (promyelocytes, myelocytes and metamyelocytes) > 1% indicates that a LEFT SHIFT is Present. Performed By: #### L 100.0100 #### [facility] [address] [place] [place], [address] Lymphocytes/100 WBC (Bld) 32.9 % Normal 19-41 [facility] Comment on above: Performed By: #### L 100.0100 #### [facility] [address] [place], [address] MCH (RBC) [Entitic mass] 27.5 pg Normal 27.0-32.0 [facility] Comment on above: Performed By: #### L 100.0100 #### [facility] [address] [place], [address] MCHC (RBC) [Mass/Vol] 32.8 g/dL Normal 32-36 [facility] Comment on above: Performed By: #### L 100.0100 #### [facility] [address] [place], [address] MCV (RBC) [Entitic vol] 83.8 fL Normal 81-99 [facility] Comment on above: Performed By: #### L 100.0100 #### [facility] [address] [place], [address] Monocytes/100 WBC (Bld) 7.8 % Normal 0-10 [facility] Comment on above: Performed By: #### L 100.0100 #### [facility] [address] [place], [address] Neutrophils/100 WBC (Bld) 54.9 % Normal 47-70 [facility] Comment on above: Performed By: #### L 100.0100 #### [facility] [address] [place], [address] Nucleated RBC (Bld) [#/Vol] 0 10*3/uL Normal 0-5 [facility] Comment on above: Performed By: #### L 100.0100 #### [facility] [address] [place], [address] Platelet mean volume (Bld) [Entitic vol] 9.5 fL Normal 6.2-12.0 [facility] Comment on above: Performed By: #### L 100.0100 #### [facility] [address] [place], [address] Platelets (Bld) [#/Vol] 339 10*3/uL Normal 150-450 [facility] Comment on above: Performed By: #### L 100.0100 #### [facility] [address] [place], [address] RBC (Bld) [#/Vol] 4.76 10*6/uL Normal 4.2-5.[address] [facility] Comment on above: Performed By: #### L 100.0100 #### [facility] [address] [place], [address] RDW SD 39.1 fl Normal 35.1-43.9 [facility] Comment on above: Performed By: #### L 100.0100 #### [facility] [address] [place], [address] WBC (Bld) [#/Vol] 9.1 10*3/uL Normal 4.4-11.0 [facility] Comment on above: Performed By: #### L 100.0100 #### [facility] [address] [place], [address] CNOVon 12-11-2024 CNOV Office Visit (WOCHRISTOPHER) ROSALVA LOPEZ ([id number]) 1 F Date Time Provider Department 12/11/24 8:15 AM GHASSAN LASSITER During your visit today, we recorded the following information about you: Temperature Pulse Respiration Blood pressure 98.8 degrees 91/minute 18/minute 112/77 Weight Last Period 59.8 kg 11/29/24 Ghassan Lassiter MD 12/11/2024 8:43 AM Signed [facility] Subjective Rosalva Lopez is a 24 year old female. Patient presents with: Pain: L low back pain wrapping around to L flank and L groin x4 days Pt is here with 4 day hx of low baCK PAIN RADIATING TO GROIN AND ABDOMEN X 4 DAYS NO VAGINAL OR URINARY SYMTPMS NO n/v NO CHANGE IN BOWEL HABITS no fever or chills no recent illness Review of Systems Constitutional: Negative for chills, fatigue and fever. Gastrointestinal: Negative for abdominal pain, nausea and vomiting. Genitourinary: Positive for pelvic pain. Negative for dysuria, flank pain, frequency and vaginal discharge. Musculoskeletal: Positive for back pain. Objective BP 112/77 Pulse 91 Temp 37.1 ?C (98.8 ?F) Resp 18 Wt 59.8 kg (131 lb 13.4 oz) LMP 11/29/2024 (Exact Date) SpO2 99% BMI 24.11 kg/m? Physical Exam Vitals and nursing note reviewed. Constitutional: Appearance: Normal appearance. She is not ill-appearing. Abdominal: General: Bowel sounds are normal. Palpations: Abdomen is soft. Tenderness: There is no abdominal tenderness. There is no right CVA tenderness, left CVA tenderness, guarding or rebound. Neurological: General: No focal deficit present. Mental Status: She is alert and oriented to person, place, and time. Psychiatric: Behavior: Behavior normal. Results for orders placed or performed in visit on 12/11/24 UA DIP, URINE (POC) Result Value Ref Range GLUCOSE UA (POCT) Negative Negative mg/dL BILIRUBIN UA (POCT) Negative Negative KETONE UA (POCT) Negative Negative mg/dL SPECIFIC GRAVITY UA (POCT) 1.015 1.005 - 1.030 HEMOGLOBIN/BLOOD UA (POCT) Negative Negative PH UA (POCT) 6.0 4.5 - 8.0 PROTEIN UA (POCT) Negative Negative mg/dL UROBILINOGEN UA (POCT) 0.2 Normal E.U./dL NITRITE UA (POCT) Negative Negative LEUKOCYTES UA (POCT) Trace (A) Negative COLOR UA (POCT) Yellow CLARITY UA (POCT) Clear {ASSESSMENT/PLAN: 1. Pelvic pain - ICD9: [id number], ICD10: R10.20 Will send for cuture and after discussion with pt will start antibiotics for a possible UTI and if not improving later today pt will go to the ED - UA DIP,URINE HCG (POC) - UA DIP, URINE (POC) - BACTERIAL CULTURE, URINE Ghassna Lassiter MD Differential Diagnoses - groin/back pain unknwn is more likely for the following reason(s): suggested by HANDP Additional Tests or Interventions The following testing was considered but ultimately not selected after discussion with patient/family: CT scan vs US Disposition The patient was discharged. Procedures Ghassan Lassiter MD 12/11/2024 8:42 AM Signed IF NO BETTER LATER TODAY GO TO THE ED [facility] [id number] [place], [place] [address] Emergency Department Diagnosis: Assessment PELVIC PAIN: Your exam shows your pain is probably from your pelvic organs (ovaries, tubes, uterus). Common causes of pelvic pain include: ovulation, cysts of the ovaries, infection, endometriosis, and tumors. More serious causes of pain in the pelvis that require surgery are appendicitis and ectopic (tubal) . Often the exact cause cannot be found with a single exam. Blood tests, cultures, and a follow-up check with a sponsorship manager may be needed. You should rest in bed with your legs propped up until your pain is much better. Avoid sex until your symptoms are improved and your doctor says it is safe. If your stomach is upset, stick to small amounts of clear liquids until you feel better. Pain medicine is sometimes needed. Contact your doctor for a follow-up exam as recommended. Please call right away or go to the emergency room if you have any of these symptoms: Very severe pain or tenderness. Fainting, severe weakness, repeated vomiting, or dehydration. Heavy vaginal bleeding or passing solid tissue. Fever or chills. Allergies As of Date: 12/11/2024 Noted Allergy Reaction AMOXICILLIN 11/27/2004 2 - Rash 4 - Hives POLYTRIM (POLYMYXIN B SULF-TRIMET* 0 4 - Hives Comments: Mom reports child used a drop in her ear that had one component of this eye medication and had no reaction but mom thinks she is still allergic to the polytrim eye drops because she had hives when used the eye drops Date Reviewed: 12/11/2024 Reviewed by: Cait Baird MA - Fully Assessed Reason for Visit: Pain [78] Cmt: L low back pain wrapping around to L flank and L groin x4 days Primary Visit Diagnosis:Pelvic pain [R10.20] Order(s):UA DIP,URINE HCG (POC) [12 (more content not included)... Normal [facility] Emergency Department Summary on 12-11-2024 Emergency Department Summary [facility] Medical Records Department [address] [place] [address] Emergency Department Summary 12/11/24 MR#: [id number] Acct: [id number] Name: ROSALVA DAUGHERTY Rep #: [id number] : 2000 24 From: Crow Billings MD PCP: Dr. Varghese Rowley MD Status:REG ER Location: ED HPI History of Present Illness Chief Complaint: Abd Pain Detail of Chief Complaint: Left lower quadrant/inguinal pain Informant: patient Onset/Context/Timing Onset: Days (4 days ago) Context: Sudden Onset Timing: Intermittent and Lasts (Up to 5 to 6-hour) Quality: Dull achy Location: Left lower quadrant superior of the inguinal ligament Current Severity: Mild Maximum Severity: Moderate Worsened by: Nothing specific, states it is worse at night Relieved by: Nothing Associated Symptoms Associated Symptoms: None Narrative Narrative: Patient is a 24-year-old female whose last normal menstrual period was November 29 who presents with left lower quadrant pain has been intermittent for the past 4 days. Can last up to 5 to 6 hours. There are no exacerbating, precipitating or alleviating factors other than it is worse at night. She denies fever, chills night sweats. She denies history of ovarian cyst, endometriosis, STI, vaginal discharge or vaginal bleeding. Has never had an abnormal Pap smear. Patient denies dysuria, frequency, urgency or hematuria. Patient denies history of renal or ureterolithiasis. There is no family history of either either. There is no history of trauma direct or indirect. She has not noted a rash. She does have a bump she felt and localizes near the superior iliac spine on the left. Prior similar symptoms: No Recent Illness/Hospitalizati on: No PFSH PFSH Medical History Celiac disease Home Medications ???Medication ???Instructions ???Recorded ???Last Taken ???Type naproxen 500 mg tablet (Naprosyn) 500 mg PO BID PRN pain #10 tabs 1 Unknown Rx Allergy/AdvReac Type Severity Reaction Status Date / Time amoxicillin Allergy Mild Hives Verified 12/11/24 14:22 penicillin G Allergy Mild Hives Verified 12/11/24 14:22 polymyxin B Allergy Mild Hives Verified 12/11/24 14:22 Surgical History History of wisdom tooth extraction, class II edentulism Social History adopted: No household members: spouse housing: house number of children: 0 current occupational status: employed current occupation: [employer] sexually active: Yes Smoking Status: Never smoker alcohol intake: current alcohol intake frequency: holidays/special occasions only substance use type: does not use caffeine: No frequency: 3-4 times per week rudolph/alevism: Jainism seatbelt use: always do you feel safe at home: Yes 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. 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 Constitutional Constitutional ED: Denies chills, fever(s), subjective, sweats or weight loss Gastrointestinal Gastrointestinal: Reports abdominal pain; Denies constipation, diarrhea, melena, nausea or vomiting Genitourinary Genitourinary ED: Reports LMP (females 10-50) Details: Comment: (November 29 and normal); Denies dysuria, hematuria or urinary frequency Musculoskeletal Musculoskeletal: Denies arthralgias, back pain, myalgias or neck pain Integumentary Denies rash Hematologic/Lymphatic Hematologic/Lymphatic : Reports systems reviewed and no addt'l complaints, except as documented EXAM Physical Exam Const Vital Signs: 12/11/24 14:22 12/11/24 14:28 12/11/24 16:22 Temperature 98.3 F 98.3 F Temperature Source Oral Oral Pulse Rate 89 88 81 Respiratory Rate 17 16 16 Blood Pressure 128/88 H 122/88 H 107/76 Blood Pressure Mean 101 99 86 Pulse Ox 100 98 100 Oxygen Delivery Method Room Air Room Air Room Air Positive well nourished and well developed General Appearance ED: well developed, NAD and pallor; Negative for cyanotic or diaphoretic HEENT Reports moist mucous membranes HEENT Narrative: Grossly normal. Eyes PERRL and EOMs intact bilaterally General Eye ED: Negative for scleral icterus Resp normal respiratory effort Cardio regular rate and regular rhythm GI normal to inspection, nondistended, normoactive bowel sounds, non-distended and no masses; Negative for non-tender or hepatosplenomegaly GI Narrative: Tenderness left lower quadrant 2 fingerbreadths above the inguinal ligament. There is guarding in this area. There is no palpable mass. Bowel sounds are diminished. There is slight tympany noted. There is no peritoneal findings. There is some tenderness in the left inguinal area. There is no palpable lymph nodes or mass. (more content not included)... Normal [facility] ,Serum,hCG Quali.on 12-11-2024 HCG, SERUM QUAL Negative Normal [facility] Comment on above: Performed By: #### L 700.6800 #### [facility] [address] [facility] [place], [place], [address] Transvaginal Non-on 12-11-2024 Transvaginal Non- [facility] [address] [place], [place] [address] Transvaginal Non- MR#: [id number] Acct: [id number] Name: ROSALVA DAUGHERTY Rep #: [id number] : 2000 F 24 From: Ramesh Orourke PCP: Dr. Varghese Rowley MD Status: [facility] ER Study: Transvaginal Non- Date of Exam: Exam# [id number] Ordering Dr: Crow Billings MD PROCEDURE: TRANSVAGINAL NON- 12/11/2024 REASON FOR EXAM: LEFT ADNEXAL PAIN, CHECK BLOOD FLOW TECHNIQUE: Procedure Code: USTVAG Modality: US Procedure: TRANSVAGINAL NON- COMPARISON: None FINDINGS: Uterus measures 7.4 x 4.2 x 2.9 cm it is anteverted position. Endometrial thickness is 5 mm. Hyperechoic endometrium. Cervix is within normal limits. No IUD is noted. Right ovary measures 3.3 x 2.4 x 1.9 cm and left ovary measures 4.2 x 2.9 x 2.8 cm. Normal symmetrical vascular flow within bilateral ovaries. Left ovary contains a complex cyst which contains a smaller cyst within measuring 1.7 x 1.3 x 1.3 cm. No significant free fluid noted. US/Transvaginal Non- IMPRESSION: No acute ovarian torsion during this exam. Left ovary contains a complex cyst which contains a smaller cyst within measuring 1.7 x 1.3 x 1.3 cm. Reading Location: [id number] CC: Dr. Varghese Rowley MD; Dr. Crow Billings MD Sliver Lap Machine Tender: Signed Normal [facility] Urinalysis, Routine (Dipstic k)on 12-11-2024 BILIRUBIN URINE Negative Normal Negative [facility] Comment on above: Order Comment: CLEAN CATCH Performed By: #### L 400.2010 #### [facility] [address] [place], [address] Clarity (U) Clear Normal Clear [facility] Comment on above: Order Comment: CLEAN CATCH Performed By: #### L 400.2010 #### [facility] [address] [place], [address] Color (U) Yellow Normal Yellow [facility] Comment on above: Order Comment: CLEAN CATCH Performed By: #### L 400.2010 #### [facility] [address] [place], [address] GLUCOSE, UR Normal Normal Normal [facility] Comment on above: Order Comment: CLEAN CATCH Performed By: #### L 400.2010 #### [facility] [address] [place], [address] KETONE UR Negative Normal Negative [facility] Comment on above: Order Comment: CLEAN CATCH Performed By: #### L 400.2010 #### [facility] [address] [place], [address] LEUK ESTERASE Negative Normal Negative [facility] Comment on above: Order Comment: CLEAN CATCH Performed By: #### L 400.2010 #### [facility] [address] [place], [address] Nitrite Ql (U) Negative Normal Negative [facility] Comment on above: Order Comment: CLEAN CATCH Performed By: #### L 400.2010 #### [facility] [address] [place], [address] OCCULT BLOOD-UR Negative Normal Negative [facility] Comment on above: Order Comment: CLEAN CATCH Performed By: #### L 400.2010 #### [facility] [address] [place], [address] pH UR 6.0 Normal 5.0 - 8.0 [facility] Comment on above: Order Comment: CLEAN CATCH Performed By: #### L 400.2010 #### [facility] [address] [place], [address] PROT DIPSTX 15 mg/dl Abnormal Negative [facility] Comment on above: Order Comment: CLEAN CATCH Performed By: #### L 400.2010 #### [facility] [address] [place], [address] SP.GR. DIPSTX 1.015 Normal 1.002-1.030 [facility] Comment on above: Order Comment: CLEAN CATCH Performed By: #### L 400.2010 #### [facility] [address] [place], [address] UROBILI Normal Normal Normal [facility] Comment on above: Order Comment: CLEAN CATCH Performed By: #### L 400.2010 #### [facility] [address] [place], [address] PAP I-G w/rfx hrHPV-Aptimaon 10-01-2024 ADEQ Comment Normal . [facility] Comment on above: Order Comment: Speci men Comment: [id number] Specimen Comment: No. of containers..01 ThinPrep Vial Result Comment: Sati sfactory for evaluation. Endocervical and/or squamous metaplastic cells (endocervical component) are present. Performed By: #### L 7400.0353 #### [facility] [address] [place], [address] COMM . Normal . [facility] Comment on above: Order Comment: Speci men Comment: [id number] Specimen Comment: No. of containers..01 ThinPrep Vial Performed By: #### L 7400.0353 #### [facility] [address] [place], [address] COMMENT Comment Normal . [facility] Comment on above: Order Comment: Speci men Comment: [id number] Specimen Comment: No. of containers..01 ThinPrep Vial Result Comment: This liquid based ThinPrep(R) pap test was screened with the use of an image guided system. Performed By: #### L 7400.0353 #### [facility] [address] [place], [address] DIAG Comment Normal . [facility] Comment on above: Order Comment: Speci men Comment: [id number] Specimen Comment: No. of containers..01 ThinPrep Vial Result Comment: NEGA TIVE FOR INTRAEPITHELIAL LESION OR MALIGNANCY. Performed By: #### L 7400.0353 #### [facility] [address] [place], [address] HPV RFLX Comment Normal . [facility] Comment on above: Order Comment: Speci men Comment: [id number] Specimen Comment: No. of containers..01 ThinPrep Vial Result Comment: The HPV DNA reflex criteria were not met with this specimen result therefore, no HPV testing was performed. Performed at: [address] [id number] Oliving Machine Operator: Bailee Chino MD, Phone: [phone] Performed By: #### L 7400.0353 #### [facility] [address] [place], [place], [id number] PAPSMR Comment Normal . [facility] Comment on above: Order Comment: Speci men Comment: [id number] Specimen Comment: No. of containers..01 ThinPrep Vial Result Comment: The Pap smear is a screening test designed to aid in the detection of premalignant and malignant conditions of the uterine cervix. It is not a diagnostic procedure and should not be used as the sole means of detecting cervical cancer. Both false-positive and false-negative reports do occur. Performed By: #### L 7400.0353 #### [facility] [address] [place], [place], [address] PERFORM Comment Normal . [facility] Comment on above: Order Comment: Speci men Comment: [id number] Specimen Comment: No. of containers..01 ThinPrep Vial Result Comment: Anyi Samuellogist Performed By: #### L 7400.0353 #### [facility] [address] [place], [place], [address] Cervical or vagninal specime n microscopic examination by cytology stain (reported asOrdered By: Lenore Au on 09-28-2024 Cytology report Cyto stain Doc (Cvx/Vag) Comment . [facility] Comment on above: The Pap smear is a s creening test designed to aid in thedetection of premalignant and malignant conditions of theuterine cervix. It is not a diagnostic procedure andshould not be used as the sole means of detecting cervicalcancer. Both false-positive and false-negative reports dooccur. Laboratory - CytologyOrdered By: Lenore Au on 09-28-2024 Textile Colorist Formulator Cyto stain Nom (Cvx/Vag) [ID] Comment . [facility] Comment on above: Mayank Samuel [facility] Laboratory - Miscellaneous t estsOrdered By: Lenore Au on 09-28-2024 Service comment (Unsp spec) [Interp] . . [facility] No Panel InformationOrdered By: Lenore Au on 09-28-2024 Pap Smear Specimen Adequacy Comment . [facility] Comment on above: Satisfactory for marilou luation. Endocervical and/or squamous metaplasticcells (endocervical component) are present. 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: No Is patient in pain?: No Allergies amoxicillin Allergy (Mild, Verified 09/28/24 15:35) Hives penicillin G Allergy (Mild, Verified 09/28/24 15:35) Hives polymyxin B Allergy (Mild, Verified 09/28/24 15:35) Hives Medications ???Medication ???Instructions ???Recorded ???Confirmed ???Type NK 09/28/24 09/28/24 History Is last menstrual period known: Yes Last Menstrual Period: 08/27/24 Post menopausal: No Patient : No : No Control Method: condoms [facility] Medical History Celiac disease Surgical History History of wisdom tooth extraction, class II edentulism Social History (Updated 09/28/24 @ 15:43 by BERT Turner NP) adopted: No household members: spouse number of children: 0 current occupational status: employed current occupation: [employer] sexually active: Yes Smoking Status: Never smoker alcohol intake: current alcohol intake frequency: holidays/special occasions only substance use type: does not use caffeine: No frequency: 3-4 times per week rudolph/alevism: Jainism seatbelt use: always do you feel safe at home: Yes 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. 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 Elective abortions Hx Para Spontaneous abortions Hx # Term Pregnancies Ectopic pregnancies Hx # Pregnancies Multiple births # of living children HPI Encounter for routine gynecological examination Details: ROSALVA LOPEZ is a 24 year old who presents [...] difficulty voiding, pelvic pain, urinary frequency, urinary incontinence, urinary urgency, vaginal discharge or vaginal pruritus Exam Const General: cooperative, healthy appearing, no acute distress and well developed Orientation: alert, oriented to person and oriented to place HENOH Head: normal to inspection Neck Neck: normal visual inspection Thyroid: thyroid normal Lymphatic: no lymphadenopathy noted Chest Breast inspection: normal inspection of the breasts and normal inspection of the axillae Breast palpation: normal palpation of the breasts, normal palpation of the axillae and no axillary lymphadenopathy Resp Effort Inspection: normal respiratory effort GI Palpation: soft, no masses and nontender Rectal Exam: deferred External Female Exam: normal external appearance and normal appearance of the urethra Urethra: normal appearance of the urethra and normal palpation Speculum Exam - Vagina: normal appearance of the vagina and normal vaginal discharge Speculum Exam - Cervix: normal appearance of the cervix Bimanual Exam- Vagina Uterus: normal bimanual exam, uterine size normal, [...] abnormal findings Orders: Orders PAP I-G w/rfx hrHPV-Apt (more content not included)... Normal [facility] US HEAD/NECK SOFT TISSUE [facility] 08-06-2023 US HEAD/NECK SOFT TISSUE OTHER * * *Final Report* * * DATE OF EXAM: Aug 06 2023 7:37AM MDU 1052 - US HEAD/NECK SOFT TISSUE OTHER / PROCEDURE REASON: R22.1-Lump on neck * * * * Physician Interpretation * * * * LIMITED SOFT TISSUE ULTRASOUND HISTORY: Lump on neck TECHNIQUE: Targeted sonography of the left supraclavicular subcutaneous tissues was performed. Images were obtained and stored in a permanent archive. RESULT: Targeted ultrasound of the left supraclavicular neck anterior soft tissues in region of interest. There is a 1.0 x 0.6 cm lymph node with preserved vascular fatty hilum. No suspicious mass or collection. IMPRESSION: Subcentimeter left supraclavicular lymph node with preserved morphology in the region of interest. No suspicious mass/collection. Sliver Lap Machine Tender: PSCB Transcribe Date/Time: Aug 12 2023 7:59A Dictated by : CHRISTINE SHAH MD This examination was interpreted and the report reviewed and electronically signed by: CHRISTINE SHAH MD on Aug 12 2023 8:02AM EST [id number] Normal [facility] STREP A MOLECULAR (POC)on Procedural Control Valid [facility] Strep A (POCT) Negative Negative [facility] SURGICAL PATHOLOGYOrdered By : Lyle Coelho on 03-02-2022 Case Report Surgical Pathology Report Case: [id number] Authorizing Provider: Joy Dugan MD Collected: 02/28/2022 11:43 AM Ordering Location: Ambulatory Surgery Received: 02/28/2022 09:17 PM Pathologist: Lyle Coelho MD Specimens: A) - DUODENUM BIOPSY B) - ASCENDING COLON POLYP C) - COLON BIOPSY, random [facility] Work Phone: Diagnosis Comment a8jmnGUqSAHyjBViUTZv N ZhvkdOtMNEbvZHxY2Cabp meJKcbIU1xDB2yzWenjJO reBBlMYPiDoHkf7yja072 aFAch1wqXRVNuucfaHs1m KxgG12rm1R7DqltS47hjD KsOXL9NUErZHKwuHTqIYM vXQO1XVTsmJWjW8onXICr XY8lnpnpPXidPKmzORDul RP9NLCruYEvF9QcKLCgBS mhYBRgpkq9TlNjEq4tyID yeTcyMFxwYXJkXHBsYWlu LXXmMmTiYA2uMDjdm4Kvl EodpB2tm4dgEgEdaT1tvL 9mnfUongZhih3kd2YuF9n veXClIG5lMEAidiEuKGId LHYeLRmvRIZclaAndPU7m PZyTlHqe94bdELbv54rYx BAf7RzjYLtPBGwkRqmnJ7 ckPIjNJzbO4d6IGGjRJP9 sRRgfbWoym76PAttdGb4X NUslA0qQVjfnIMawx1gUE 5dfNGkolEpSH76RMRyyKX 0aHksIHRoZSByZXNvbHZp dlolpHkyf1Myd0GqOT0hj J6cXWX6aX8gQEGlSRAfX7 E2zJ6yTGrlunVwdBXoBS1 cDqriHuAAVMGvKUfua4ew pKFawVChLDS3w5tfcSAyP SBkaXNlYXNlLCBhbmQgYm YmhMNoeFSqFL88MTVvjt3 8yQzrGDC3WAIyjzrdBVGy LITpmlVxDQ4sIUXlAlKpM GC9yophBWPedyXguFYgLU 1ldGFwbGFzaWEgYWxzbyB sPJbpPXEhwJekUWJsh2Ft CnzjoOI7KY9cPNdsBNLkA ILmBQMhoS6fIztxNBHcCB M2uQAfZKAiZGNelFEeth2 iN78xotSbBAVop98ct6o6 yYWvkQgizENtqUzkVB1sf 8Mbd5QdExrgGZ9iFDKife 7dd4ftEkHwvL1mmY9awhU kleSxFPYyhY5pjkEcKT1q cGFyXHBhciBDLiBHaXZlb pT9iRJzgTmrhE7pgOEydH OcmjXna4QvxFjlYFLunOj 6EFKlfsYhNJ6tKAMnh81f RPYpq8JmDATeWLEymxA2v M4tLOZvIvVrtVEkgqYkVE Ygt6WpTqzwnYB9PzKOpVP 8DBFxfH9xDNAskJDiXFSx ZSBkaWZmZXJlbnRpYWwgZ YreE89mw7keKHJxfaCoRS MmE4VsJWOmqEx6FFJqz6l rqLjiWBPpoKJccs9cz5Cf aK7itRO8WXZhr26qhV7at ARpSUFjeY2hOXU9rB4gUY BzM2N1UWSmDVojYTmthOc 3BDQrR08dvBInjawdpLHy aVUcsGEjXL84S44gFIcko LXgjJ6bJ6Cpw4ntmVGuNQ MrSZXvD1S5oR9oYCXveYV 5GQFqvX3eqPZ6WFhqLmiu AIDDK9VQTAUyEKOYfy5ux idjXQEad2Mpa6OaOPGmXG C5lSNyhlU2sZBiVRRgmSw 1mGVafA4xGJWsRKY7sAWl LH5aPVarCFvggRKyAPbes CYpdN8gC12qfyXhQJDij8 2dt7h7zWTqlBlrmAHbnQP uywFrZT9tc0Fak7DyXzYf bF3odC3hhvWymtVhBTTmw Y9regWpNO2hGLvrbySkxL Wgsj9pDMfbaB3qtThwptQ eSdXnroGrRJscHRQdfD2n xRHfZJUqpYr7YMU0dYDlC BAupxUybj8kW0TttuGyv6 1hcyBhcmUgaWRlbnRpZml jWZ6aHHafoeHenTLeil5g PFVuNFXvC4Qcf0LpNMwpa Lrtu7tdBR3pWJ4bzBnhmk AdW1daDYHwvf6= [facility] Work Phone: FINAL DIAGNOSIS z6oivOWcCRFniZOeTATm N WntciAjVBNhuOJsP0Ticm piGFmnOS4hST4cnIcwvWX ikZIqWGMuHzXhr8rfd424 xTRot1stSBDClyflgBm0g OuxX33gj8B0LihrZ40isJ WpRGY2ZZReTHWrxPZvIKY tZMP6WKLduMFyT2hnKWLr KY5trpgkZAvbBUcfBMBfc QW9SRIarIZkC9IfQBUrEG taPRUnmhq7UdRmKv3vkUC yeTcyMFxwYXJkXHBsYWlu OTDzQnFvSJ5iTVTxSLWvr P5qTNFeq5KuuVlzqTOcWY 5qP28ukDybOi83PFxohAF gj2ZtHGeziZoctZ68DHO5 QMOepJwiwUMdYEPokNl6R JI9bNIaIJVgPIYudBzfjG 41fpVvqZl7dTElzLYnYSz 4dLJeq7N9fX1fyERjFUOx EQFkOEB6rcbmPQCnsjIsg MCnVY2emENnmNGyoCOgLZ IiBXLvn46pHU17WV0iaUT sDMDctxCWVrBMg2DympMm gdqnK78lg82dmY6shDDwJ LZab0CmrMypzGWtTH3uE0 Ipc1jeMGFsMILnNWWeUBJ eb5h7fM5dtXCeSVAibmKQ WrMSCB4kw20pB27gc24qP WNum9ChaFqzeOWfLF2fVI hlhS8qvHWpu4HreGCkI1R oobQlO07onORgqjLcv9Mv JCBrkA5bwxSpOijlLYRwv GFyIEpFTCAxLzEzLzIwMj NccGFyfQ== [facility] Work Phone: Gross Description d2hejNUqYOOuyNLfNCUm N KimrnUkAYWvoLIwZ2Rrnn ldRJehYS1jAS0oyXuksFV skZVyOWRfZlKzl9eph496 gTLeo8acHFAWajihoMn0o MnoZ50fx5E4IkzlE89prS MoWHE3XOVdWJTqhRDdKBV uGVI2RSXrpYJjU2nyZAUp YZ9rzfouFMhgCTsuJHZje SQ9CCOfsEOhR9VxWGRlOS dnUSIuult6EfHpPq0wwHK sfLitECyhWrmmkYelf2Kh dCBcXGlkIDUxMDAwIFxcb kcpPKo1RSQuAPbvyKPeFU 9kfHgjAbfqkPrtd8HwzOP cXGlkIDUxMDAyIFxcZGIg N8SJDEYkXiV3LkF0ZXUmB Bj8OAg1BM1SAjQjEMNfWQ X3PNP2UEShOOq7HZvdUI6 NTUe5OoW9UhP9VxZdJEAg OZCwZXl1HOBkWSlpnTDvP IXiCTXbFRmfNIftU43fcA FyZFxwbGFpblxmczIwIEE pFMOTJ9MCQtGMTWFWL4HM WVxwYXJcZnMyMCBSZWNla JKeSITdegCda3AgTGyxsx BhcmUgbXVsdGlwbGUgcGl bZ0SlUV3oTDMiappdw71p dKF1aZJvlLJkQCvhkbCtI KFzofukeA5oYbL1DQCxDg L6SGDrVlCfbL3mXQ67MEb obHJvkDCvdSH3QTYnyO7d uVgaJKVpf5PsbQLjdl45U FTwnUYaGTY1ZP1mJFFrcu hfFMVuDBLxLUV1EGilhN1 1bHQwXGZzMTZccGFyfXtc OcqwlVqbv7QzsUUkTUoqR NDsDCWbKHgmFSYwF2RXKO WxTlH1BmK4SGVyIAm4HEi 9AO8ESrAoZXLuXVW7ArXh DYTlMVb4BCniUZ6HBMs5L sL9BuN0CpXoYWDoFNZfRC j8DJHkMEczeISqXRClANO dVPbtPXtvO06gAfDcMUVX SsBNQ1VMMuLFWpzuM92GB 86vVP6FKCRbhDZxCAWqUf FtCaLaXYk7RPPwtB8xIe0 yyOCedZ2tRXJpKT95rBMo iMacKITbGHLaehMeZoQ8L K6dQCRpNjWfwEcyz0IqOO GnH1TxJ0X6uQ2aKQYmSHS xZVQ6KEHnRiI1HWOsPyIn wH4wVK72LImtkORjaRIuf QT1RRGbwQ4weVvgRPEpj7 CgzKSgsj21WDIyxDMcSGC 6TI2cZSYbbhdoTAZjTBBd NUJ6LRjvuP61eCDcWYFjM TZccGFyfXtcKlxlcGljc2 VjdCBcXGlkIDUxMDAyIFx rCTLbR2HPJFLqFkU4IbR5 ISBfHPn4UVb2MQ8IFiQwS BCmCWI0ReUwUQKrNCy2YC exIS9JCTg7YsI3MdF1OEB aCSGmIQYmQCs6BZUkTAum bCBcXGYgQXJpYWwgXFxuY 66xFwUbJLXKGzJOO6bYLt WAAI1OM9fhqKLfKYUdIxD sBrMnJLt8FRXmkU2fFe5a lQJleB3sBFFtEC01qNHjd PmkGCCxKTXlorMaTiU6NX 8iLXYeYcPpuRlkz8FzJRI hP1CzR1U1sZ7kYKWbPJXm AHY3YJNmOwW4MFPtNoNjt I5hFL42TIxpxDSqeLJhfQ A2NTLzmA2ulAztVEEqh1S ocETnsg9eXFEstbxtFNSw G3Bbp6IiZCppbDvkSRAix 89gmWQmKa1syXVbKYM4JN NsZXZlbGFuZCBDbGluaWM aNFg0ZBQfHEQaxYenHIN6 ML2kMKVeISDjqNKrTIydH 0ggNDQxOTVccGFyXHBhci EMBS3lIFXqGMTcTxGaIsP uJyx2LkMNYFnwLVRcU7In R6PlfgM6d1dntJjfa3Tgd PTdUG5cmDAjyI== [facility] Work Phone: Performing Lab p2hzbFQcVFBsuWGdYrKn M YTbRHNuf5btSLKjfFGmGc EwMzNcZnRuYmpcdWMxXGR dZtCbn7esx903iXVwt8qn HMSrHiE6uNZfEHCqqPRlG 990NYYlFZoyz7aph3QhOE YjfCNry0Y5YTIBiyfxuDk 9kYywW38ay5E5AqfxD2xo HCYvZRCqV4GiXN3bWXFgE bp3WUZ7TCZ5NWVoEWZjL0 CpGO5qYOVyzTMtMDc3m0k tsBqbOYOpPZL9s4ctRDaj ydBmTM2bzk1auTf7p9ylc zEgRGVmYXVsdCBQYXJhZ3 KmvXzqEd2oxSg0aCztCvy qOQI4Ipa0SQ7esm53wzt7 vGvcQDBofvqoKxV9MTjsD BKprcprLOt1AQmkSCBfsG G8MTTqwOOaY0DfNUGwMO9 lxcq1FVE2TXdlNBLpCuN9 NDBcaGVhZGVyeTcyMFxmb 372NOJ3AoXjLL8sB0Vqo9 R8gD4auGDyIPIiwTBmKhA pKCBfqi6smGMpGFocl3Bu RNA7asP3yAMklNSxLCXvD D85Zvclp0ZuGqkdl3IqG7 7zeLN4LSuvt1qqLE0eCiP 5tgWmBZkzb1esoH7wTwH9 HCvuEX9qYS5gAGBlwK1bq mxjXHBnYnJkcmhlYWRccG cjgvSdEe5zxFbhHUY1FWp oH9nlkM6jWxN8INzpA8th oN6rESu7IAtxyNX7YGCch B8bME4zwryvo9jqARmpQV qwIQEitrK3qiH4NEKyjQF rF7YzvO3rWYQmCD1lxwcq k9bgQHJ4HNorMFRrWHY4I nCmKEDnv6Cmgtr8XmNew0 UpcFYpREugW13bl542AHC bfoRaB9blwWPesgmkqLUz bqmnFObzznW6STWmSYSrF WluXGYxXGZzMjJcbGFuZz EwMzNcaGljaFxmMVxkYmN zJYCuHWmhU6ihEtDmNlNq KfCDrCNctm5yhIzcMVhxa CUnxDIvkGH5iU1rRVZqsw Shlj2uQMApoWKBqFA4GIq pmbGjU0ufghbnWUMkuBS4 eCY4ILlez5GnoBNwLEShP UEsLGWZt8QnaR3uGDKaLB WUaUM6CGavsnBaLU8YTNV 3MSBzERAfJKTWGJUiYLJ7 CXN5CXg7CVsrcHNxLXWld lxwYXJkXHBsYWluXGYwXG ZxGqClhXyezO6yZkQgHzM pUnvyFN2sLVVkX7bjcILv LQRiNXQaY8asFaFzqC9zr FxmMVxjZjJcZnMyMlxsdH WjcCYRRKGapsW5x1S9GRj wbGFpblxmMVxmczIyXGxh omyiLIPpMPjxE9njMoJaF TBbhCqaSIlua6UrIBFdJX WrMgDsNAtcRRQ9j7N5LF7 uaowqHd2qRCGoCAAwB95x LCBNLkQuXHBhcn0= [facility] Work Phone: [facility] Work Phone: EGD Study observation Remi alvarez 02-28-2022 [facility] G[facility] Patient Name: Rosalva Lopez Procedure Date: 02/28/2022 11:33 AM Date of : 2000 Admit Type: Outpatient Age: 21 Room: [place] [address] Gender: Female Note Status: Finalized Attending MD: Joy Dugan MD Procedure: Upper GI endoscopy Indications: Diarrhea Providers: Joy Dugan MD Patient Profile: This is a 21 year old female. Refer to note in patient chart for documentation of history and physical. Referring Physician: Joy Dugan MD (Referring MD) Medicines: Propofol per Anesthesia Complications: No immediate complications. Requesting Provider: Procedure: Pre-Anesthesia Assessment: - Prior to the procedure, a History and Physical was performed, and patient medications and allergies were reviewed. The patient is competent. The risks and benefits of the procedure and the sedation options and risks were discussed with the patient. All questions were answered and informed consent was obtained. Patient identification and proposed procedure were verified by the physician and the nurse in the pre-procedure area in the procedure room. Mental Status Examination: alert and oriented. Airway Examination: normal oropharyngeal airway and neck mobility. Respiratory Examination: clear to auscultation. CV Examination: normal. Prophylactic Antibiotics: The patient does not require prophylactic antibiotics. Prior Anticoagulants: The patient has taken no anticoagulant or antiplatelet agents. ASA Grade Assessment: I - A normal, healthy patient. After reviewing the risks and benefits, the patient was deemed in satisfactory condition to undergo the procedure. The anesthesia plan was to use monitored anesthesia care (MAC). Immediately prior to administration of medications, the patient was re-assessed for adequacy to receive sedatives. The heart rate, respiratory rate, oxygen saturations, blood pressure, adequacy of pulmonary ventilation, and response to care were monitored throughout the procedure. The physical status of the patient was re-assessed after the procedure. After obtaining informed consent, the endoscope was passed under direct vision. Throughout the procedure, the patient's blood pressure, pulse, and oxygen saturations were monitored continuously. The Colonoscope was introduced through the mouth, and advanced to the second part of duodenum. I was present and participated during the entire procedure, including non-bergman portions, and during the administration and monitoring of Moderate Sedation. The upper GI endoscopy was accomplished without difficulty. The patient tolerated the procedure well. Moderate Sedation: MAC anesthesia was administered by the anesthesia team. Findings: The examined esophagus was normal. The Z-line was regular and was found 40 cm from the incisors. The entire examined stomach was normal. Scalloped mucosa was found in the second portion of the duodenum. Biopsies were taken with a cold forceps for histology. Impression: - Normal esophagus. - Z-line regular, 40 cm from the incisors. - Normal stomach. - Duodenal mucosal changes seen, suspicious for celiac disease. Biopsied. Recommendation: - Resume previous diet. - Continue present medications. - The patient is not currently taking anticoagulant or antiplatelet agents. - Await pathology results. - Patient has a contact number available for (more content not included)... [employer]OVATION [facility] Radiology Study observation (narrative) [facility] Flexible sigmoidoscopy study on 02-28-2022 [facility] Patient Name: Rosalva Lopez Procedure Date: 02/28/2022 11:32 AM Date of : 2000 Admit Type: Outpatient Age: 21 Room: [facility] Gender: Female Note Status: Finalized Attending MD: Joy Dugan MD Procedure: Colonoscopy Indications: Chronic diarrhea, Rectal bleeding Providers: Joy Dugan MD Patient Profile: This is a 21 year old female. Refer to note in patient chart for documentation of history and physical. Last Colonoscopy: none. The patient's first colonoscopy is today. Referring Physician: Joy Dugan MD (Referring MD) Medicines: Propofol per Anesthesia Complications: No immediate complications. Requesting Provider: Procedure: Pre-Anesthesia Assessment: - Prior to the procedure, a History and Physical was performed, and patient medications and allergies were reviewed. The patient is competent. The risks and benefits of the procedure and the sedation options and risks were discussed with the patient. All questions were answered and informed consent was obtained. Patient identification and proposed procedure were verified by the physician and the nurse in the pre-procedure area in the procedure room. Mental Status Examination: alert and oriented. Airway Examination: normal oropharyngeal airway and neck mobility. Respiratory Examination: clear to auscultation. CV Examination: normal. Prophylactic Antibiotics: The patient does not require prophylactic antibiotics. Prior Anticoagulants: The patient has taken no anticoagulant or antiplatelet agents. ASA Grade Assessment: I - A normal, healthy patient. After reviewing the risks and benefits, the patient was deemed in satisfactory condition to undergo the procedure. The anesthesia plan was to use monitored anesthesia care (MAC). Immediately prior to administration of medications, the patient was re-assessed for adequacy to receive sedatives. The heart rate, respiratory rate, oxygen saturations, blood pressure, adequacy of pulmonary ventilation, and response to care were monitored throughout the procedure. The physical status of the patient was re-assessed after the procedure. After I obtained informed consent, the scope was passed under direct vision. Throughout the procedure, the patient's blood pressure, pulse, and oxygen saturations were monitored continuously. The Colonoscope was introduced through the anus and advanced to the terminal ileum. I was present and participated during the entire procedure, including non-bergman portions, and during the administration and monitoring of Moderate Sedation. The terminal ileum, ileocecal valve, appendiceal orifice, and rectum were photographed. The colonoscopy was performed without difficulty. The patient tolerated the procedure well. The quality of the bowel preparation was good. Moderate Sedation: MAC anesthesia was administered by the anesthesia team. Findings: The perianal and digital rectal examinations were normal. The colon (entire examined portion) appeared normal. Biopsies were taken with a cold forceps for histology. Internal hemorrhoids were found during retroflexion. The hemorrhoids were Grade I (internal hemorrhoids that do not prolapse). The terminal ileum appeared normal. Impression: - The entire examined colon is normal. Biopsied. - Internal hemorrhoids. - The examined portion of the ileum was normal. Recommendation: - Resume previous diet. - Continue present (more content not included)... [employer]OVATION [facility] Radiology Study observation (narrative) [facility] Office Visit: Spine Visit- L hip painon 10-08-2016 Documentation of current medications (procedure) Done Invalid Interpretation Code [facility] Work Phone: Office Visit: Spine Visit- L hip painon 09-10-2016 Documentation of current medications (procedure) Done Invalid Interpretation Code [facility] Work Phone: Protein mass conc Done [facility] Work Phone: Office Visit: Spine Visit- L hip & back painon 06-18-2016 Documentation of current medications (procedure) Done Invalid Interpretation Code [facility] Work Phone: Office Visiton 12-27-2015 Tobacco smoking status NHIS Never Invalid Interpretation Code [facility] Work Phone: Tobacco smoking status HIIS Never smoker [facility] Work Phone: Tobacco use [facility] Never smoker Invalid Interpretation Code [facility] Work Phone: Vital Signs Date Time Vital Sign Value Performing Clinician Facility 09-28-2024 15:27-0400 Body height 160.[address] Rufus Martinez MD Work Phone: [facility] 09-28-2024 15:27-0400 Body mass index (BMI) [Ratio] 23.6 kg/m2 Dr. Rufus Martinez MD Work Phone: [facility] 09-28-2024 15:27-0400 Body weight 60.[address] Rufus Martinez MD Work Phone: [facility] 09-28-2024 15:27-0400 Diastolic blood pressure 73 mm[Hg] Dr. Rufus Martinez MD Work Phone: [facility] 09-28-2024 15:27-0400 Systolic blood pressure 106 mm[Hg] Dr. Rufus Martinez MD Work Phone: [facility] 12-17-2023 16:50-0400 Body mass index (BMI) [Ratio] 23.27 kg/m2 Geena Garduno [employer] Work Phone: [facility] 12-17-2023 16:50-0400 Body temperature 98.91 [degF] Geena Garduno [employer] Work Phone: [facility] 12-17-2023 16:50-0400 Body weight 57.7 kg Geena Garduno [employer]PERVIS[employer] Work Phone: [facility] 12-17-2023 16:50-0400 Diastolic blood pressure 64 mm[Hg] Geena Garduno [employer]PER[employer] Work Phone: [facility] 12-17-2023 16:50-0400 Heart rate 82 /min Geena Garduno [employer]PER[employer] Work Phone: [facility] 12-17-2023 16:50-0400 Respiratory rate 18 /min Geena Garduno [employer]PER[employer] Work Phone: [facility] 12-17-2023 16:50-0400 SaO2% (BldA) [Mass fraction] 97 % Geena Garduno [employer] Work Phone: [facility] 12-17-2023 16:50-0400 Systolic blood pressure 102 mm[Hg] Geena Garduno [employer]PER[employer] Work Phone: [facility] 08-05-2023 08:49-0400 Body height 157.5 cm Argenis Rowanr [employer]PER[employer] Work Phone: [facility] 08-05-2023 08:49-0400 Body mass index (BMI) [Ratio] 23.59 kg/m2 Argenis Francisco [employer]PER[employer] Work Phone: [facility] 08-05-2023 08:49-0400 Body weight 58.51 kg Argenis Francisco [employer]PER[employer] Work Phone: [facility] 08-05-2023 08:49-0400 Diastolic blood pressure 56 mm[Hg] Argenis Francisco [employer] Work Phone: [facility] 08-05-2023 08:49-0400 Heart rate 85 /min Argenis Francisco [employer]PER[employer] Work Phone: [facility] 08-05-2023 08:49-0400 Respiratory rate 12 /min Argenis Francisco [employer]PER[employer] Work Phone: [facility] 08-05-2023 08:49-0400 SaO2% (BldA) [Mass fraction] 100 % Argenis Francisco [employer]PER[employer] SUPER[employer] Work Phone: [facility] 08-05-2023 08:49-0400 Systolic blood pressure 108 mm[Hg] Argenis Francisco [employer]PER[employer] Work Phone: [facility] 06-03-2023 07:58-0400 Body height 157.[address] [facility] 06-03-2023 07:58-0400 Body weight 55.[address] [facility] 04-26-2023 07:58-0500 Body weight 57.15 kg Kamala Peña SUPER[employer]OR [employer].STATISTICAL GENETICIST Work Phone: [facility] 04-26-2023 07:58-0500 Diastolic blood pressure 72 mm[Hg] Kamala Peña SUPER[employer]OR [employer].STATISTICAL GENETICIST Work Phone: [facility] 04-26-2023 07:58-0500 Heart rate 88 /min Kamala Peña SUPER[employer]OR [employer].STATISTICAL GENETICIST Work Phone: [facility] 04-26-2023 07:58-0500 Respiratory rate 16 /min Kamala Peña SUPERVISOR [employer].STATISTICAL GENETICIST Work Phone: [facility] 04-26-2023 07:58-0500 SaO2% (BldA) [Mass fraction] 98 % Kamala Peña [employer]PER[employer].STATISTICAL GENETICIST Work Phone: [facility] 04-26-2023 07:58-0500 Systolic blood pressure 112 mm[Hg] Kamala Peña SUPERVISOR [employer].STATISTICAL GENETICIST Work Phone: [facility] 08-10-2022 07:28-0400 Body temperature 97.59 [degF] Jossue Pendlebury [employer]PER[employer] SUPER[employer] Work Phone: [facility] 08-10-2022 07:28-0400 Body weight 57.24 kg Jossue Pendlebury [employer]PER[employer] Work Phone: [facility] 08-10-2022 07:28-0400 Diastolic blood pressure 70 mm[Hg] Jossue Pendlebury [employer]PER[employer] SU[employer] Work Phone: [facility] 08-10-2022 07:28-0400 Heart rate 76 /min Jossue Pendlebury [employer]PER[employer]PER[employer] Work Phone: [facility] 08-10-2022 07:28-0400 Respiratory rate 18 /min Jossue Pendlebury [employer]PER[employer] Work Phone: [facility] 08-10-2022 07:28-0400 SaO2% (BldA) [Mass fraction] 100 % Jossue Pendlebury [employer]PER[employer] Work Phone: [facility] 08-10-2022 07:28-0400 Systolic blood pressure 100 mm[Hg] Jossue Pendlebury SUPERVISOR [employer] SUPER[employer] Work Phone: [facility] 04-24-2022 14:38-0500 Body height 157.5 cm Argenis Francisco SUPERVISOR [employer]PER[employer] Work Phone: [facility] 04-24-2022 14:38-0500 Body weight 57.15 kg Argenis Francisco SUPERVISOR [employer] Work Phone: [facility] 04-24-2022 14:38-0500 Diastolic blood pressure 60 mm[Hg] Argenis Francisco SUPERVIS[employer] Work Phone: [facility] 04-24-2022 14:38-0500 Heart rate 79 /min Argenis Francisco [employer]PER[employer] SUPER[employer] Work Phone: [facility] 04-24-2022 14:38-0500 SaO2% (BldA) [Mass fraction] 98 % Argenis Francisco SUPERVISOR PA[employer] SUPERVISOR Work Phone: [facility] 04-24-2022 14:38-0500 Systolic blood pressure 100 mm[Hg] Argenis Francisco SUPERVISOR PA[employer] SUPERVISOR Work Phone: [facility] 02-28-2022 12:07-0500 Body temperature 98.01 [degF] Joy Dugan MD Work Phone: [facility] 02-28-2022 12:07-0500 Diastolic blood pressure 61 mm[Hg] Joy Dugan MD Work Phone: [facility] 02-28-2022 12:07-0500 Heart rate 79 /min Joy Dugan MD Work Phone: [facility] 02-28-2022 12:07-0500 Respiratory rate 16 /min Joy Dugan MD Work Phone: [facility] 02-28-2022 12:07-0500 SaO2% (BldA) [Mass fraction] 98 % Joy Dugan MD Work Phone: [facility] 02-28-2022 12:07-0500 Systolic blood pressure 102 mm[Hg] Joy Dugan MD Work Phone: [facility] 02-28-2022 10:50-0500 Body height 158.8 cm Joy Dugan MD Work Phone: [facility] 02-28-2022 10:50-0500 Body mass index (BMI) [Ratio] 23.04 kg/m2 Joy Dugan MD Work Phone: [facility] 02-28-2022 10:50-0500 Body weight 58.06 kg Joy Dugan MD Work Phone: [facility] 01-17-2022 16:06-0500 Body height 158.5 cm Joy Dugan MD Work Phone: [facility] 01-17-2022 16:06-0500 Body weight 58.15 kg Joy Dugan MD Work Phone: [facility] 01-17-2022 16:06-0500 Diastolic blood pressure 80 mm[Hg] Joy Dugan MD Work Phone: [facility] 01-17-2022 16:06-0500 Heart rate 88 /min Joy Dugan MD Work Phone: [facility] 01-17-2022 16:06-0500 Systolic blood pressure 118 mm[Hg] Joy Dugan MD Work Phone: [facility] 12-27-2015 08:14-0500 BMI (Body Mass Index) 19.02 kg/m2 Keira Srinivas [facility] Work Phone: 12-27-2015 08:14-0500 Height 157.48 cm Keira Cambrian [employer] [facility] Work Phone: 12-27-2015 08:14-0500 Weight 47.17 kg Keira Espino [facility] Work Phone: Encounters Encounter Date Encounter Type Care Provider Facility Start: 12-24-2024 End: 12-24-2024 [id number] Start: 12-15-2024 End: 12-15-2024 ambulatory VARGHESE [facility] Facility:[facility] Start: 12-11-2024 End: 12-11-2024 Emergency department patient visit [facility] Facility:[facility] Start: 12-11-2024 End: 12-11-2024 ambulatory [facility] Facility:[facility] Start: 09-28-2024 Encounter for gynecological examination (general) (routine) without abnormal findings Lenore Au NP [facility] Start: 09-28-2024 End: 09-28-2024 Patient encounter procedure Lenore Au IT TELECOM TECHNICIAN[place] [facility] Work Phone: Start: 09-28-2024 End: 09-28-2024 Patient encounter status Lenore Au IT TELECOM TECHNICIAN-C [facility] Start: 09-28-2024 End: 09-28-[address] Rufus Martinez MD Work Phone: -[facility] Start: 09-28-2024 End: 09-28-2024 ambulatory Lenore Au IT TELECOM TECHNICIAN Facility:[facility] Start: 12-17-2023 End: 12-17-2023 Patient encounter procedure Geena Garduno SUPERVISOR PAINTING SHIPYARD.[employer]AY [employer]OP SUPERVISOR Work Phone: [facility] Comment on above: Sinus congestion (Pr imary Dx); Acute cough; Rhinosinusitis Start: 08-12-2023 Telephone encounter Argenis baca SUPERVISOR PAINTING SHIPYARD.CLAY SHOP SUPERVISOR Work Phone: Internal Medicine [place] Comment on above: Results Start: 08-06-2023 [facility]ulatory [facility] y:[facility] Start: 08-06-2023 End: 08-06-2023 Subsequent hospital visit by physician [facility] 2 Work Phone: Radiology Comment on above: Lump on neck [R22.1] Start: 08-05-2023 End: 08-05-2023 Patient encounter procedure Argenis Singh APRN.CLAY SHOP SUPERVISOR Work Phone: Internal Medicine [place] Comment on above: Lump on neck (Primar y Dx); Celiac disease Start: 06-14-2023 End: 06-14-2023 Nursing evaluation of patient and report Mi Nurse Work Phone: [facility] [place] Comment on above: Screening examinatio n for pulmonary tuberculosis (Primary Dx) Start: 06-12-2023 End: 06-12-2023 Nursing evaluation of patient and report Mi Nurse Work Phone: [facility] [place] Comment on above: Screening examinatio n for pulmonary tuberculosis (Primary Dx) Start: 06-10-2023 Telephone encounter Argenis Ann er SUPERVISOR PAINTING SHIPYARD.CLAY SH[employer] SUPERVISOR Work Phone: [facility] [place] Comment on above: Orders Start: 06-07-2023 End: 06-07-2023 Nursing evaluation of patient and report Mi Nurse Work Phone: [facility] [place] Comment on above: Screening examinatio n for pulmonary tuberculosis (Primary Dx) Start: 06-05-2023 End: 06-05-2023 Nursing evaluation of patient and report Mi Nurse Work Phone: [facility] [place] Comment on above: Screening examinatio n for pulmonary tuberculosis (Primary Dx) Start: 06-03-2023 End: 06-03-[address] Nutrition Therapy Comment on above: Assessment; Patient Education Start: 05-31-2023 End: 05-31-2023 Nursing evaluation of patient and report Mi Nurse Work Phone: [facility] [place] Comment on above: Need for vaccination (Primary Dx) Start: 05-24-2023 Telephone encounter Varghese prieto MD Work Phone: [facility] [place] Comment on above: Orders Start: 05-10-2023 Telephone encounter Varghese prieto MD Work Phone: [facility] [place] Comment on above: Orders Start: 05-03-2023 End: 05-03-2023 Nursing evaluation of patient and report Mi Nurse Work Phone: [facility] [place] Comment on above: Encounter for immuni zation (Primary Dx) Start: 04-26-2023 End: 04-26-2023 Patient encounter procedure Kamala Peña APRN.STATISTICAL GENETICIST Work Phone: [facility] [place] Comment on above: Wellness examination (Primary Dx); Encounter for immunization; Screening for STD (sexually transmitted disease); Special screening examination for viral disease; Screening for HIV (human immunodeficiency virus); Celiac disease Start: 04-26-2023 End: 04-26-2023 Patient encounter status Kamala Peña APRN.STATISTICAL GENETICIST Work Phone: [facility] Work Phone: Start: 08-10-2022 End: 08-10-2022 Office outpatient visit 15 minutes Jossue Figueroa SUPERVISOR PAINTING SHIPYARD.CLAY SHOP SUPERVISOR Work Phone: [place] [facility] Comment on above: Pharyngitis, unspeci fied etiology (Primary Dx) Start: 05-22-2022 End: 05-22-2022 Nursing evaluation of patient and report Mi Nurse Work Phone: [facility] [place] Comment on above: Screening examinatio n for pulmonary tuberculosis (Primary Dx) Start: 05-15-2022 Telephone encounter Agrenis Ann er SUPERVISOR PAINTING SHIPYARD.CLAY [employer]OP SUPERVISOR Work Phone: [facility] Comment on above: Orders Start: 05-09-2022 End: 05-09-2022 Nursing evaluation of patient and report Mi Nurse Work Phone: [facility] [place] Comment on above: Screening examinatio n for pulmonary tuberculosis (Primary Dx) Start: 05-07-2022 End: 05-07-2022 Nursing evaluation of patient and report Mi Nurse Work Phone: [facility] [place] Comment on above: Screening examinatio n for pulmonary tuberculosis (Primary Dx) Start: 05-04-2022 Telephone encounter Argenis Ann er SUPERVISOR PAINTING SHIPYARD.CLAY SHOP SUPERVISOR Work Phone: [facility] [place] Comment on above: Orders Start: 04-24-2022 End: 04-24-2022 Patient encounter procedure Argenis Rowanr SUPERVISOR PAINTING SHIPYARD.[employer]AY [employer]OP SUPERVISOR Work Phone: [facility] [place] Comment on above: Wellness examination (Primary Dx); Celiac disease; Encounter to establish care Start: 04-24-2022 End: 04-24-2022 Patient encounter status Argenis Francisco SUPERVISOR PAINTING SHIPYARD.CLAY SHOP SUPERVISOR Work Phone: Internal Medicine [place] Start: 03-05-2022 Telephone encounter Joy chew MD Work Phone: Gastroenterology [place] Comment on above: Opened In Error Start: 02-28-2022 End: 02-28-2022 Subsequent hospital visit by physician Joy Dugan MD Work Phone: Ambulatory Surgery Comment on above: Abdominal pain, unsp ecified abdominal location [R10.9] Start: 02-26-2022 ambulatory Joy Cooper i, MD Work Phone: Ambulatory Surgery Start: 01-17-2022 End: 01-17-2022 Patient encounter procedure Joy Dugan MD Work Phone: [facility] [place] Comment on above: Abdominal pain, lowe r (Primary Dx); Abdominal pain, unspecified abdominal location; Abnormal laboratory test result; Bloody stool; Diarrhea due to malabsorption; Celiac disease; Diarrhea, unspecified type Start: 12-15-2021 Telephone encounter Rufus Martinez MD Work Phone: [facility] [place] Comment on above: Abnormal results Start: 12-14-2021 Telephone encounter Rufus Martinez MD Work Phone: [facility] [place] Comment on above: Referral Request Start: 09-25-2021 End: 09-25-2021 Patient encounter procedure Nurse [facility] Comment on above: Need for Tdap vaccin ation (Primary Dx) Start: 07-26-2021 End: 07-26-2021 Patient encounter procedure Nurse [facility] [place] Comment on above: Encounter for PPD sk in test reading (Primary Dx) Start: 07-24-2021 End: 07-24-2021 Patient encounter procedure Nurse [facility] Comment on above: Tuberculosis screeni ng (Primary Dx) Procedures Date Procedure Procedure Detail Performing Clinician Start: 09-28-2024 Liquid based cervical cytology screening Dr. Rufus Martinez MD Work Phone: Comment on above: NEGATIVE FOR INTRAEPITHELIAL LESION OR M ALIGNANCY. This liquid based Th inPrep(R) pap test was screened withthe use of an image guided system. The HPV DNA reflex c kevon were not met with this specimenresult therefore, no HPV testing was performed.Performed at: [address] [id number] Director: Bailee Chino MD, Phone: [phone] Start: 08-10-2022 STREP A MOLECULAR (POC) Jossue yao APRN.CNP Work Phone: Start: 02-28-2022 Level iv surg pathology gross&microscopic exam Joy Dugan MD Work Phone: Start: 02-28-2022 Esophagogastroduodenoscopy transoral diagnostic Joy Dugan MD Work Phone: Start: 02-28-2022 Colonoscopy flx dx w/collj spec when pfrmd Joy Dugan MD Work Phone: Start: 07-24-2021 Skin test tuberculosis intradermal Shannan sa Macario MCCLOUD Work Phone: Start: 09-08-2019 Adult depression screening assessment Nurse [place] Start: 11-06-2016 End: 11-07-2016 Chiropractic manipulation Keira B Dossi DC Work Phone: Start: 11-06-2016 End: 11-07-2016 Electric stimulation therapy Keira B Dos si DC Work Phone: Start: 10-08-2016 End: 10-09-2016 Chiropractic manipulation Keira B Dossi DC Work Phone: Start: 10-08-2016 End: 10-09-2016 Electric stimulation therapy Keira B Dos si DC Work Phone: Start: 09-10-2016 End: 09-10-2016 Chiropractic manipulation Keira B Dossi DC Work Phone: Start: 09-10-2016 End: 09-10-2016 Electric stimulation therapy Keira B Dos si DC Work Phone: Start: 06-18-2016 End: 06-18-2016 Chiropractic manipulation Keira B Dossi DC Work Phone: Start: 06-18-2016 End: 06-18-2016 Ultrasound therapy Keira B Dossi DC Work Phone: Start: 05-15-2016 End: 05-15-2016 Chiropractic manipulation Keira B Dossi DC Work Phone: Start: 04-30-2016 End: 04-30-2016 Chiropractic manipulation Keira B Dossi DC Work Phone: Start: 12-01-2015 End: 12-01-2015 Chiropractic manipulation Keira B Dossi DC Work Phone: Start: 11-29-2015 End: 11-29-2015 Chiropractic manipulation Keira Flanagan Dossi DC Work Phone: Start: 11-24-2015 End: 11-24-2015 Chiropractic manipulation Keira Flanagan Dossi DC Work Phone: Start: 11-21-2015 End: 11-21-2015 Chiropractic manipulation Keira Flanagan Dossi DC Work Phone: Start: 11-17-2015 End: 11-17-2015 Chiropractic manipulation Keira Flanagan Dossi DC Work Phone: Start: 11-14-2015 End: 11-14-2015 Chiropractic manipulation Keira Flanagan Dossi DC Work Phone: Start: 11-10-2015 End: 11-10-2015 Chiropractic manipulation Keira Flanagan Dossi DC Work Phone: Start: 11-07-2015 End: 11-07-2015 Chiropract manj 1-2 regions Keira Flanagan Bonifacio i DC Work Phone: Start: 11-07-2015 End: 11-07-2015 Electric stimulation therapy Keira Flanagan Dos si DC Work Phone: Start: 11-07-2015 End: 11-07-2015 Massage therapy Keira Flanagan Dossi DC Work Phone: Start: 11-07-2015 End: 11-07-2015 Mechanical traction therapy Keira Flanagan Bonifacio i DC Work Phone: Laboratory test result abnormal Abnormal laboratory test result Joy Dugan MD Work Phone: Laboratory test result abnormal Abnormal laboratory test result Joy Dugan MD Work Phone: Plan of Treatment Date Care Activity Detail Author Start: 09-26-2031 Urine microalbumin profile [facility] Start: 09-06-2024 PAP TESTING PAP TESTING [facility] Start: 09-06-2024 Screening for malign ant neoplasm of cervix [facility] Start: 04-25-2024 Covid-19 Vaccine (4 - 2023-24 season) Covid-19 Vaccine ( season) [facility] Comment on above: Postponed from 10/19 (Declined at this time) Start: 04-25-2024 GC (Gonorrhea) Screening (18-24) GC (Gonorrhea) Screening () [facility] Comment on above: Postponed from 03/14 (Declined at this time) Start: 04-25-2024 Peds To Adult Transition Annual Assessment Peds To Adult Transition Annual Assessment [facility] Comment on above: Postponed from 03/14 (Postponed To Appropriate Date) Start: 04-25-2024 Screening for Chlamy den trachomatis Chlamydia Screening () [facility] Comment on above: Postponed from 03/14 (Declined at this time) Start: 10-20-2023 Covid-19 Vaccine ( season) Covid-19 Vaccine () [facility] Start: 10-20-2023 Influenza vaccination Influenza Vacc ine (#1) [facility] Start: 08-06-2023 End: 08-06-2023 Patient encounter procedure 08/06/2023 7:30 AM EDT Appointment Radiology [address], [place] [id number] Lump on neck [R22.1] Radiology Comment on above: Lump on neck [R22.1] Start: 08-05-2023 End: 11-04-2023 CELIAC SCREEN WITH REFLEX [facility] Comment on above: Expected: 08/05/2023 , Expires: 11/04/2023 Start: 06-14-2023 End: 06-14-2023 Nursing evaluation of patient and report 06/14/2023 3:45 PM EDT Nurse Visit [facility] [address] [place] [id number] Nurse, [address] [place] [id number] PPD read [facility] Comment on above: PPD read Start: 05-31-2023 Meningococcal B Vaccine: Consider Based On Risk (2 of 2 - Risk Bexsero 2-dose series) Meningococcal B Vaccine: Consider Based On Risk (2 of 2 - Risk Bexsero 2-dose series) [facility] Start: 04-26-2023 End: 07-26-2023 25-hydroxyvitamin D3 [Mass/volume] in Serum or Plasma [facility] Work Phone: Comment on above: Expected: 04/26/2023 , Expires: 07/26/2023 Start: 04-26-2023 End: 07-26-2023 CBC W Auto Differential panel - Blood [facility] Work Phone: Comment on above: Expected: 04/26/2023 , Expires: 07/26/2023 Start: 04-26-2023 End: 07-26-2023 Cobalamin (Vitamin B12) [Mass/volume] in Serum or Plasma [facility] Work Phone: Comment on above: Expected: 04/26/2023 , Expires: 07/26/2023 Start: 04-26-2023 End: 07-26-2023 Comprehensive metabolic 2000 panel - Serum or Plasma [facility] Work Phone: Comment on above: Expected: 04/26/2023 , Expires: 07/26/2023 Start: 04-26-2023 End: 07-26-2023 Ferritin [Mass/volume] in Serum or Plasma [facility] Work Phone: Comment on above: Expected: 04/26/2023 , Expires: 07/26/2023 Start: 04-26-2023 End: 07-26-2023 Folate [Mass/volume] in Serum or Plasma [facility] Work Phone: Comment on above: Expected: 04/26/2023 , Expires: 07/26/2023 Start: 04-26-2023 End: 07-26-2023 Hepatitis C virus Ab [Presence] in Serum [facility] Work Phone: Comment on above: Expected: 04/26/2023 , Expires: 07/26/2023 Start: 04-26-2023 End: 07-26-2023 HIV 1+2 Ab [Presence] in Serum or Plasma by Immunoassay [facility] Work Phone: Comment on above: Expected: 04/26/2023 , Expires: 07/26/2023 Start: 04-26-2023 End: 07-26-2023 Iron and Iron binding capacity panel - Serum or Plasma [facility] Work Phone: Comment on above: Expected: 04/26/2023 , Expires: 07/26/2023 Start: 04-26-2023 End: 07-26-2023 Retinol [Mass/volume] in Serum or Plasma [facility] Work Phone: Comment on above: Expected: 04/26/2023 , Expires: 07/26/2023 Start: 04-26-2023 End: 07-26-2023 Thyrotropin [Units/volume] in Serum or Plasma [facility] Work Phone: Comment on above: Expected: 04/26/2023 , Expires: 07/26/2023 Start: 04-26-2023 End: 07-26-2023 Transferrin [Mass/volume] in Serum or Plasma [facility] Work Phone: Comment on above: Expected: 04/26/2023 , Expires: 07/26/2023 Start: 04-26-2023 End: 07-26-2023 Zinc [Mass/volume] in Serum or Plasma [facility] Work Phone: Comment on above: Expected: 04/26/2023 , Expires: 07/26/2023 Start: 02-18-2023 Behavioral Health Screening Behavioral Health Screening [facility] Start: 02-18-2022 DEPRESSION ASSESSMENT DEPRESSION ASS ESSMENT [facility] Start: 01-17-2022 End: 03-19-2022 25-hydroxyvitamin D3 [Mass/volume] in Serum or Plasma VITAMIN D 25 HYDROXY Lab Routine Abdominal pain, unspecified abdominal location Abnormal laboratory test result 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 Expected: 01/17/2022, Expires: 03/19/2022 [facility] Work Phone: Comment on above: Expected: 01/17/2022 , Expires: 03/19/2022 Start: 01-17-2022 End: 01-17-2023 Basic metabolic 2000 panel - Serum or Plasma BASIC METABOLIC PNL Lab Routine Abdominal pain, unspecified abdominal location Abnormal laboratory test result 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 Expected: 01/17/2022, Expires: 01/17/2023 [facility] Work Phone: Comment on above: Expected: 01/17/2022 , Expires: 01/17/2023 Start: 01-17-2022 End: 01-17-2023 CBC W Auto Differential panel - Blood CBC + DIFF Lab Routine Abdominal pain, unspecified abdominal location Abnormal laboratory test result 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 Expected: 01/17/2022, Expires: 01/17/2023 [facility] Work Phone: Comment on above: Expected: 01/17/2022 , Expires: 01/17/2023 Start: 01-17-2022 End: 03-19-2022 Cobalamin (Vitamin B12) [Mass/volume] in Serum or Plasma VITAMIN B12 BLOOD Lab Routine Abdominal pain, unspecified abdominal location Abnormal laboratory test result 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 Expected: 01/17/2022, Expires: 03/19/2022 [facility] Work Phone: Comment on above: Expected: 01/17/2022 , Expires: 03/19/2022 Start: 01-17-2022 End: 03-19-2022 Ferritin [Mass/volume] in Serum or Plasma FERRITIN BLD Lab Routine Abdominal pain, unspecified abdominal location Abnormal laboratory test result 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 Expected: 01/17/2022, Expires: 03/19/2022 [facility] Work Phone: Comment on above: Expected: 01/17/2022 , Expires: 03/19/2022 Start: 01-17-2022 End: 03-19-2022 Folate [Mass/volume] in Serum or Plasma FOLATE SERUM Lab Routine Abdominal pain, unspecified abdominal location Abnormal laboratory test result 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 Expected: 01/17/2022, Expires: 03/19/2022 [facility] Work Phone: Comment on above: Expected: 01/17/2022 , Expires: 03/19/2022 Start: 01-17-2022 End: 01-17-2023 Hepatic function 2000 panel - Serum or Plasma HEPATIC FUNCTION PNL Lab Routine Abdominal pain, unspecified abdominal location Abnormal laboratory test result 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 Expected: 01/17/2022, Expires: 01/17/2023 [facility] Work Phone: Comment on above: Expected: 01/17/2022 , Expires: 01/17/2023 Start: 01-17-2022 End: 03-19-2022 Iron and Iron binding capacity panel - Serum or Plasma IRON + TIBC Lab Routine Abdominal pain, unspecified abdominal location Abnormal laboratory test result 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 Expected: 01/17/2022, Expires: 03/19/2022 [facility] Work Phone: Comment on above: Expected: 01/17/2022 , Expires: 03/19/2022 Start: 01-17-2022 End: 03-19-2022 Retinol [Mass/volume] in Serum or Plasma VITAMIN A/RETINOL Lab Routine Abdominal pain, unspecified abdominal location Abnormal laboratory test result 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 Expected: 01/17/2022, Expires: 03/19/2022 [facility] Work Phone: Comment on above: Expected: 01/17/2022 , Expires: 03/19/2022 Start: 01-17-2022 End: 03-19-2022 Zinc [Mass/volume] in Serum or Plasma ZINC BLD Lab Routine Abdominal pain, unspecified abdominal location Abnormal laboratory test result 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 Expected: 01/17/2022, Expires: 03/19/2022 [facility] Work Phone: Comment on above: Expected: 01/17/2022 , Expires: 03/19/2022 Start: 10-19-2021 Influenza vaccination INFLUENZA (#1) [facility] Start: 09-25-2021 Urine microalbumin profile DTAP,TDAP,TD (7 - Td or Tdap) [facility] Start: 08-18-2021 COVID-19 VACCINE (4 - Booster for Pfizer series) COVID-19 VACCINE (4 - Booster for Pfizer series) [facility] Start: 2021 PAP TESTING PAP TESTING [facility] Start: 02-18-2021 DEPRESSION ASSESSMENT DEPRESSION ASS ESSMENT [facility] Start: 09-07-2020 Adult depression screening assessment DEPRESSION SCREENING [facility] Start: 2018 Anxiety Screening Anxiety Screening [facility] Start: 2018 CHLAMYDIA SCREENING (18-24) CHLAMYDIA SCREENING (18-24) [facility] Start: 2018 Depression Screening Depression Scre ening [facility] Start: 2018 GC (GONORRHEA) SCREENING (18-24) GC (GONORRHEA) SCREENING (18-24) [facility] Start: 2018 HEPATITIS C SCREENING HEPATITIS C SC [facility] Start: 2018 Hepatitis C screening Hepatitis C [facility] Start: 2018 HIV SCREENING HIV SCREENING [facility] Start: 2018 HIV screening HIV Screening [facility] Start: 10-19-2016 End: 10-19-2016 Appointment Appointment [facility] Work Phone: Start: 09-10-2016 End: 09-10-2016 Appointment Appointment [facility] Work Phone: Start: 06-18-2016 End: 06-18-2016 Appointment Appointment [facility] Work Phone: Start: 2016 Meningococcal B Vaccine: Consider Based On Risk (1 of 2 - Patient Seeks Protection) Meningococcal B Vaccine: Consider Based On Risk (1 of 2 - Patient Seeks Protection) [facility] Start: 12-28-2015 End: 12-28-2015 Occupational Therapy General Occupational Therapy [facility], [address] [place] [address], [id number] [facility] Work Phone: Start: 12-27-2015 End: 12-27-2015 X-Ray, Hip, unilateral, with pelvis; 2-3 views X-Ray, Hip, unilateral, with pelvis; 2-3 views [facility] Work Phone: Start: 12-01-2015 End: 12-01-2015 Follow up Appt 2x/week Follow up Appt 2x/week [facility] Work Phone: Start: 11-29-2015 End: 11-29-2015 Follow up Appt 2x/week Follow up Appt 2x/week [facility] Work Phone: Start: 11-24-2015 End: 11-24-2015 Follow up Appt 1x/week Follow up Appt 1x/week [facility] Work Phone: Start: 11-21-2015 End: 11-21-2015 Follow up Appt 3x/week Follow up Appt 3x/week [facility] Work Phone: Start: 11-17-2015 End: 11-17-2015 Follow up Appt 3x/week Follow up Appt 3x/week [facility] Work Phone: Start: 11-14-2015 End: 11-14-2015 Follow up Appt 3x/week Follow up Appt 3x/week [facility] Work Phone: Start: 11-10-2015 End: 11-10-2015 Follow up Appt 3x/week Follow up Appt 3x/week [facility] Work Phone: Start: 11-07-2015 End: 11-07-2015 Follow up Appt 2x/week Follow up Appt 2x/week [facility] Work Phone: Start: 2014 PEDS TO ADULT TRANSITION ANNUAL ASSESSMENT PEDS TO ADULT TRANSITION ANNUAL ASSESSMENT [facility] Start: 2012 PEDS TO ADULT TRANSITION INITIAL DISCUSSION PEDS TO ADULT TRANSITION INITIAL DISCUSSION [facility] Start: 2010 MENINGOCOCCAL B: Consider based on risk (1 of 2 - Risk Bexsero 2-dose series) MENINGOCOCCAL B: Consider based on risk (1 of 2 - Risk Bexsero 2-dose series) [facility] End: 01-17-2023 COLONOSCOPY DIAGNOSTIC COLONOSCOPY DIAGNOSTIC Endoscopy Routine Abdominal pain, unspecified abdominal location Abnormal laboratory test result 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 1 Occurrences starting 01/17/2022 until 01/17/2023 [facility] Work Phone: Comment on above: 1 Occurrences starti ng 01/17/2022 until 01/17/2023 End: 01-17-2023 EGD DIAGNOSTIC EGD DIAGNOSTIC Endoscopy Routine Abdominal pain, unspecified abdominal location Abnormal laboratory test result 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 1 Occurrences starting 01/17/2022 until 01/17/2023 [facility] Work Phone: Comment on above: 1 Occurrences starti ng 01/17/2022 until 01/17/2023 Liquid based cervica l cytology screening [facility] MENINGOCOCCAL B VACC INE (BEXSERO) MENINGOCOCCAL B VACCINE (BEXSERO) Immunization/Injection Routine Encounter for immunization Wellness examination Ordered: 04/26/2023 [facility] Work Phone: Comment on above: Ordered: 04/26/2023 MENINGOCOCCAL B VACC INE (BEXSERO) MENINGOCOCCAL B VACCINE (BEXSERO) Immunization/Injection Routine Need for vaccination Ordered: 05/14/2023 [facility] Work Phone: Comment on above: Ordered: 05/14/2023 PPD (TB INTRADERMAL 86224) B/O PPD (TB INTRADERMAL 33300) B/O Procedures Routine Screening-pulmonary TB Ordered: 05/04/2022 [facility] Work Phone: Comment on above: Ordered: 05/04/2022 PPD (TB INTRADERMAL 02078) B/O PPD (TB INTRADERMAL 44667) B/O Procedures Routine Screening examination for pulmonary tuberculosis Ordered: 05/15/2022 [facility] Work Phone: Comment on above: Ordered: 05/15/2022 PPD (TB INTRADERMAL 26875) B/O PPD (TB INTRADERMAL 13230) B/O Procedures Routine Screening-pulmonary TB Ordered: 06/10/2023 [facility] Work Phone: Comment on above: Ordered: 06/10/2023 PPD (TB INTRADERMAL 02043) B/O PPD (TB INTRADERMAL 14793) B/O Procedures Routine Screening-pulmonary TB Ordered: 05/24/2023 [facility] Work Phone: Comment on above: Ordered: 05/24/2023 End: 09-03-2024 US Head and neck soft tissue US HEAD/NECK SOFT TISSUE OTHER Radiology Routine Lump on neck 1 Occurrences starting 08/05/2023 until 09/03/2024 [facility] Work Phone: Comment on above: 1 Occurrences starti ng 08/05/2023 until 09/03/2024 US Head and neck sof t tissue US HEAD/NECK SOFT TISSUE OTHER Radiology Routine Lump on neck 08/06/2023 7:37 AM EDT [facility] Work Phone: [facility] Immunizations Immunization Date Immunization Notes Care Provider Fa mis 06-12-2023 tuberculin skin test ; purified protein derivative solution, intradermal Geena Garduno SUPERVISOR PAINTING SHIPYARD.CLAY SHOP SUPERVISOR Work Phone: [facility] 06-05-2023 tuberculin skin test ; purified protein derivative solution, intradermal Geena Garduno SUPERVISOR PAINTING SHIPYARD.CLAY SHOP SUPERVISOR Work Phone: [facility] 05-31-2023 meningococcal B vaccine, recombinant, OMV, adjuvanted Mi Nurse Work Phone: [facility] 05-03-2023 meningococcal B vaccine, recombinant, OMV, adjuvanted Mi Nurse Work Phone: [facility] 11-14-2022 Influenza, injectabl e, Madin Leana Canine Kidney, preservative free, quadrivalent Kamala Peña SUPERVISOR PAINTING SHIPYARD.STATISTICAL GENETICIST Work Phone: [facility] Work Phone: 11-14-2022 influenza virus vaccine, unspecified formulation Joy Dugan MD Work Phone: [facility] 05-22-2022 tuberculin skin test ; purified protein derivative solution, intradermal Geena Garduno SUPERVISOR PAINTING SHIPYARD.CLAY SHOP SUPERVISOR Work Phone: [facility] 05-07-2022 tuberculin skin test ; purified protein derivative solution, intradermal Geena Garduno SUPERVISOR PAINTING SHIPYARD.CLAY SHOP SUPERVISOR Work Phone: [facility] 11-17-2021 Influenza, injectabl e, Madin [place] Canine Kidney, preservative free, quadrivalent Argenis Francisco SUPERVISOR PAINTING SHIPYARD.CLAY SHOP SUPERVISOR Work Phone: [facility] Work Phone: 09-25-2021 tetanus toxoid, redu agnieszka diphtheria toxoid, and acellular pertussis vaccine, adsorbed Nurse [facility] 07-24-2021 tuberculin skin test ; purified protein derivative solution, intradermal Joy Dugan MD Work Phone: [facility] 11-05-2020 influenza, injectabl e, quadrivalent, preservative free Argenis Francisco SUPERVISOR PAINTING SHIPYARD.CLAY SHOP SUPERVISOR Work Phone: [facility] Work Phone: 07-26-2020 hepatitis B vaccine, adult dosage Nurse [facility] Work Phone: 07-26-2020 tuberculin skin test ; purified protein derivative solution, intradermal Joy Dugan MD Work Phone: [facility] 11-10-2019 tuberculin skin test ; purified protein derivative solution, intradermal Joy Dugan MD Work Phone: [facility] 10-27-2019 hepatitis B vaccine, pediatric or pediatric/adolescent dosage Nurse [facility] Work Phone: 10-27-2019 influenza, injectabl e, quadrivalent, contains preservative Nurse [facility] Work Phone: 10-27-2019 tuberculin skin test ; purified protein derivative solution, intradermal Joy Dugan MD Work Phone: [facility] 09-22-2019 hepatitis B vaccine, pediatric or pediatric/adolescent dosage Nurse [facility] 11-08-2018 influenza, injectabl e, quadrivalent, contains preservative Argenis Francisco SUPERVISOR PAINTING SHIPYARD.CLAY SHOP SUPERVISOR Work Phone: [facility] Work Phone: 11-16-2017 Influenza, injectabl e, Madin Leana Canine Kidney, preservative free, quadrivalent Nurse [facility] Work Phone: 11-16-2017 influenza, injectabl e, quadrivalent, contains preservative Argenis Francisco SUPERVISOR PAINTING SHIPYARD.CLAY SHOP SUPERVISOR Work Phone: [facility] Work Phone: 10-30-2016 influenza, injectabl e, quadrivalent, contains preservative Argenis Francisco SUPERVISOR PAINTING SHIPYARD.[facility] Work Phone: [facility] Work Phone: 10-30-2016 influenza, injectabl e, quadrivalent, preservative free Nurse [facility] Work Phone: 08-27-2016 meningococcal polysaccharide (groups A, C, Y and W-135) diphtheria toxoid conjugate vaccine (MCV4P) [facility] Work Phone: 11-19-2015 influenza, injectabl e, quadrivalent, contains preservative Argenis Francisco SUPERVISOR PAINTING SHIPYARD.[facility] Work Phone: [facility] Work Phone: 11-19-2015 influenza, injectabl e, quadrivalent, preservative free Nurse [facility] Work Phone: 08-11-2014 human papilloma viru s vaccine, quadrivalent [facility] 10-05-2013 human papilloma viru s vaccine, quadrivalent Nurse [facility] 08-10-2013 human papilloma viru s vaccine, quadrivalent Nurse [facility] Work Phone: 01-28-2012 influenza virus vaccine, live, attenuated, for intranasal use Nurse [facility] 09-26-2011 hepatitis A vaccine, unspecified formulation [facility] 09-26-2011 Meningococcal, MCV4, unspecified conjugate formulation(groups A, C, Y and W-135) [facility] 09-26-2011 tetanus toxoid, redu agnieszka diphtheria toxoid, and acellular pertussis vaccine, adsorbed [facility] 09-26-2011 varicella virus vaccine [facility] 01-06-2011 influenza virus vaccine, live, attenuated, for intranasal use Nurse [facility] 01-10-2010 influenza virus vaccine, live, attenuated, for intranasal use Nurse [facility] 11-20-2008 influenza virus vaccine, unspecified formulation Nurse [facility] 01-02-2008 influenza virus vaccine, unspecified formulation Nurse [facility] Work Phone: 10-31-2007 hepatitis A vaccine, unspecified formulation Nurse [facility] Work Phone: 05-14-2005 diphtheria, tetanus toxoids and acellular pertussis vaccine Nurse [facility] Work Phone: 05-14-2005 measles, mumps and rubella virus vaccine Nurse [facility] Work Phone: 05-14-2005 poliovirus vaccine, inactivated Nurse [facility] Work Phone: 12-12-2004 influenza virus vaccine, unspecified formulation [facility] Work Phone: 12-21-2002 influenza virus vaccine, unspecified formulation [facility] Work Phone: 12-27-2001 influenza virus vaccine, unspecified formulation [facility] Work Phone: 07-21-2001 diphtheria, tetanus toxoids and acellular pertussis vaccine [facility] Work Phone: 07-21-2001 haemophilus influenz ae type b vaccine, HbOC conjugate [facility] Work Phone: 05-05-2001 measles, mumps and rubella virus vaccine [facility] Work Phone: 05-05-2001 varicella virus vaccine [facility] Work Phone: 2000 diphtheria, tetanus toxoids and acellular pertussis vaccine [facility] Work Phone: 2000 haemophilus influenz ae type b vaccine, HbOC conjugate [facility] Work Phone: 2000 hepatitis B vaccine, pediatric or pediatric/adolescent dosage Nurse [facility] Work Phone: 2000 poliovirus vaccine, inactivated [facility] Work Phone: 2000 diphtheria, tetanus toxoids and acellular pertussis vaccine [facility] Work Phone: 2000 haemophilus influenz ae type b vaccine, HbOC conjugate [facility] Work Phone: 2000 poliovirus vaccine, inactivated [facility] Work Phone: 2000 diphtheria, tetanus toxoids and acellular pertussis vaccine [facility] Work Phone: 2000 haemophilus influenz ae type b vaccine, HbOC conjugate [facility] Work Phone: 2000 hepatitis B vaccine, pediatric or pediatric/adolescent dosage [facility] Work Phone: 2000 poliovirus vaccine, inactivated [facility] Work Phone: 2000 hepatitis B vaccine, pediatric or pediatric/adolescent dosage [facility] Work Phone: NEGATED: Highlighted row has not occurred!04-26-2023 meningococcal B vaccine, recombinant, OMV, adjuvanted Kamala Peña APRN.STATISTICAL GENETICIST Work Phone: [facility] Work Phone: Payers Date Payer Category Payer Self-pay 2024 Unknown [id number] 2020 Private Health Insurance [employer] LESLIEA OAP [id number] 2020-Present [phone] [id number] [id number] Open Access [id number] 2020 Private Health Insurance [employer] F[place] IGNA OAP [id number] 2020-Present [phone] [address] [place] [address] Open Access [id number] 2020 Private Health Insurance [id number] 2016 Unknown [id number] Unknown [id number] Unknown [id number] Unknown [id number] 62 Unknown [id number] Social History Date Type Detail Facility Start: 09-28-2024 Tobacco smoking stat [facility] Never smoked tobacco [facility] Start: 07-20-2020 End: 12-17-2023 Alcohol intake Current non-drinker of alcohol (finding) [facility] Start: 2000 Sex Assigned At Not on file C [facility] Start: 12-04-2021 End: 01-17-2022 Exposure to SARS-CoV-2 (event) Not sure [facility] Start: 04-26-2023 End: 05-03-2023 History of Social function [facility] Work Phone: Start: 04-26-2023 End: 05-03-2023 Tobacco use panel [facility] Work Phone: Adult Depression Screening Assessment 0 [facility] Work Phone: Start: 2000 Sex Assigned At Female W [facility] Clinical Notes 10-05-2013 to 12-15-2024 Note Date & Type Note Facility 12-15-2024 Note HNO ID: [id number] Author: VARGHESE ROWLEY MD Service: ? Author Type: Physician Type: Progress Notes Filed: 12/15/2024 18:06 Note Text: Jurgen Lopez is a 24 year old female. HPI Recording using [employer] software for draft documentation of the visit was discussed with the patient/authorized it sales representative; all questions welcomed and answered. Patient/authorized it sales representative agreed to proceed here for yearly exam and follow up appointment. Rosalva Lopez is a 24-year-old female presenting for follow-up after an ER visit for left lower abdominal pain. Rosalva reports experiencing left lower abdominal pain radiating to the back, which began prior to an ER visit. Initially, she visited urgent care, where a UTI was suspected, and she was prescribed naproxen 500 mg BID. However, the pain persisted, leading her to seek further evaluation in the ER. An ultrasound performed in the ER revealed a complex cyst on the left ovary, measuring 1.7 x 1.3 x 1.3 cm, with a smaller cyst within it. The right ovary was normal, and no significant free fluid or signs of torsion were noted. Blood counts were normal, and a urine culture showed no significant growth. Since the ER visit, Rosalva reports significant improvement in pain, with only occasional mild discomfort in the back. She completed the prescribed naproxen and denies any current pain with ambulation or lying down. She also denies nausea, vomiting, or fever but notes a decreased appetite since the onset of pain. 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 Mak) and had a recent Pap test in September, which was normal. She recently discontinued control and reports regular menstrual cycles since then. A test performed in the ER was negative. PAST MEDICAL HISTORY Diagnosis Date Clavicle fracture age 3-4 resolved Constipation 09/26/2011 Croup resolved, frequent as young child Menstrual periods irregular 02/18/2013 Age 13 NEGATIVE HISTORY OF 09/26/2011 Normal Color VIsion Sessile serrated polyp of colon Syncope 02/18/2009 after getting ears pierced Tear of acetabular labrum 12/27/2015 Current Outpatient Medications Medication Sig Multivitamin capsule Take 1 capsule by mouth once daily. nitrofurantoin monohydrate and macrocrystal (MACROBID) 100 mg capsule Take 1 capsule by mouth two times a day for 5 days. (Patient not taking: Reported on 12/15/2024) BEYAZ 3-0.02-0.451 mg (24) (4) tab (Patient not taking: Reported on 12/15/2024) No current facility-administered medications for this visit. ALLERGIES Allergen Reactions Amoxicillin Rash, Hives Polytrim [Polymyxin* Hives Mom reports child used a drop in her ear that had one component of this eye medication and had no reaction but mom thinks she is still allergic to the polytrim eye drops because she had hives when used the eye drops FAMILY HISTORY Problem Relation Age of Onset No Known Problems Mother No Known Problems Father No Known Problems Sister None Other Colon Cancer No Family History Ulcerative Colitis No Family History Crohn's Disease No Family History SOCIAL HISTORY[1] Review of Systems Objective BP 96/72 Pulse 66 Resp 16 Wt 60.1 kg (132 lb 7.9 oz) LMP 11/29/2024 (Exact Date) SpO2 99% BMI 24.23 kg/m? Last 5 Encounter Wt Readings: Date: Wt: 12/15/2024 60.1 kg (132 lb 7.9 oz) 12/11/2024 59.8 kg (131 lb 13.4 oz) 12/17/2023 57.7 kg (127 lb 3.3 oz) 08/05/2023 58.5 kg (129 lb) 06/03/2023 55.8 kg (123 lb) No waist measurement recorded Estimated body mass index is 24.23 kg/m? as calculated from the following: Height as of 08/05/23: 157.5 cm (5' 2). Weight as of this encounter: 60.1 kg (132 lb 7.9 oz). Last 5 Encounter BP Readings: Date: BP: 12/15/2024 96/72 12/11/2024 112/77 12/17/2023 102/64 08/05/2023 108/56 04/26/2023 112/72 Physical Exam Abdominal: Tenderness: There is abdominal tenderness (LLQ; mild). There is no right CVA tenderness, left CVA tenderness or guarding. ASSESSMENT AND PLAN # Complex ovarian cyst (N83.299) # LLQ pain (R10.32) # Acute left-sided low back pain without sciatica (M54.50) - Recent ED visit for left lower quadrant and back pain; initial suspicion of UTI, but urine studies and cultures were negative. - Pelvic ultrasound revealed a complex cyst in the left ovary (1.7 x 1.3 x 1.3 cm) with a smaller cyst within; no significant free fluid, no evidence of torsion, and normal endometrial thickness. - Pain has improved since ED visit; currently minimal back discomfort. - Continue naproxen 500 mg BID as needed for residual pain and inflammation. - Advised patient to follow up with gynecology for further evaluation and management; CAR STORER will determine need for repeat ultrasound or additional interventions. - Educated patient on typical course of ovarian cysts, potential for spontaneous resolution, and signs/symptoms that would warrant (more content not included)... [facility] 12-11-2024 Note HNO ID: [id number] Author: GHASSAN LASSITER MD Service: ? Author Type: Physician Type: Progress Notes Filed: 12/11/2024 08:43 Note Text: [facility] Subjective Rosalva Lopez is a 24 year old female. Patient presents with: Pain: L low back pain wrapping around to L flank and L groin x4 days Pt is here with 4 day hx of low baCK PAIN RADIATING TO GROIN AND ABDOMEN X 4 DAYS NO VAGINAL OR URINARY SYMTPMS NO n/v NO CHANGE IN BOWEL HABITS no fever or chills no recent illness Review of Systems Constitutional: Negative for chills, fatigue and fever. Gastrointestinal: Negative for abdominal pain, nausea and vomiting. Genitourinary: Positive for pelvic pain. Negative for dysuria, flank pain, frequency and vaginal discharge. Musculoskeletal: Positive for back pain. Objective BP 112/77 Pulse 91 Temp 37.1 ?C (98.8 ?F) Resp 18 Wt 59.8 kg (131 lb 13.4 oz) LMP 11/29/2024 (Exact Date) SpO2 99% BMI 24.11 kg/m? Physical Exam Vitals and nursing note reviewed. Constitutional: Appearance: Normal appearance. She is not ill-appearing. Abdominal: General: Bowel sounds are normal. Palpations: Abdomen is soft. Tenderness: There is no abdominal tenderness. There is no right CVA tenderness, left CVA tenderness, guarding or rebound. Neurological: General: No focal deficit present. Mental Status: She is alert and oriented to person, place, and time. Psychiatric: Behavior: Behavior normal. Results for orders placed or performed in visit on 12/11/24 UA DIP, URINE (POC) Result Value Ref Range GLUCOSE UA (POCT) Negative Negative mg/dL BILIRUBIN UA (POCT) Negative Negative KETONE UA (POCT) Negative Negative mg/dL SPECIFIC GRAVITY UA (POCT) 1.015 1.005 - 1.030 HEMOGLOBIN/BLOOD UA (POCT) Negative Negative PH UA (POCT) 6.0 4.5 - 8.0 PROTEIN UA (POCT) Negative Negative mg/dL UROBILINOGEN UA (POCT) 0.2 Normal E.U./dL NITRITE UA (POCT) Negative Negative LEUKOCYTES UA (POCT) Trace (A) Negative COLOR UA (POCT) Yellow CLARITY UA (POCT) Clear {ASSESSMENT/PLAN: 1. Pelvic pain - ICD9: [id number], ICD10: R10.20 Will send for cuture and after discussion with pt will start antibiotics for a possible UTI and if not improving later today pt will go to the ED - UA DIP,URINE HCG (POC) - UA DIP, URINE (POC) - BACTERIAL CULTURE, URINE Ghassan Lassiter MD Differential Diagnoses - groin/back pain unknwn is more likely for the following reason(s): suggested by HANDP Additional Tests or Interventions The following testing was considered but ultimately not selected after discussion with patient/family: CT scan vs US Disposition The patient was discharged. Procedures [facility] 09-28-2024 Evaluation note Diagnosis Onset Date Resolution Encounter for routine gynecological examination noneactive September 28 3:25pm [facility] Work Phone: 1(825) 696-996108-11-2025 Progress [facility] [address], [facility] [address] [place] [address] OFFICE VISIT Date of Service: 09/28/24 MR#: [id number] Acct: [id number] Name: HOWARDROSALVA ShaverGAIL Rep #: [id number] : 2000 Provider: BERT Au Age/Sex: 24/F [place] [facility] [place]: Signed Intake Vital Signs 09/25/23 15:45 09/28/24 15:27 Height 5 ft 3 in 5 ft 3 in Weight: 133 lb 7 oz BMI 23.6 BP 106/73 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) [employer] Supervisor Required: No Is patient in pain?: No Allergies amoxicillin Allergy (Mild, Verified 09/28/24 15:35) Hives penicillin G Allergy (Mild, Verified 09/28/24 15:35) Hives polymyxin B Allergy (Mild, Verified 09/28/24 15:35) Hives Medications ?Medication ?Instructions ?Recorded ?Confirmed ?Type NK 09/28/24 09/28/24 History Is last menstrual period known: Yes Last Menstrual Period: 08/27/24 Post menopausal: No Patient : No : No Control Method: [facility] Medical History Celiac disease Surgical History History of wisdom tooth extraction, class II edentulism Social History (Updated 09/28/24 @ 15:43 by Lenore Au NP, IT TELECOM TECHNICIAN-C) adopted: No household members: spouse number of children: 0 current occupational status: employed current occupation: [employer] sexually active: Yes Smoking Status: Never smoker alcohol intake: current alcohol intake frequency: holidays/special occasions only substance use type: does not use caffeine: No frequency: 3-4 times per week rudolph/alevism: Jainism seatbelt use: always do you feel safe at home: Yes 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. 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 Off OCP X 1 months. Using condoms. Maytry for next year. July 2024. Last PAP: [...] oriented to person and oriented to place [facility] Head: normal to inspection Neck Neck: normal [...] bimanual exam, uterine size normal, uterine shape normaland non-tender Bimanual Exam- Adnexa, other: normal adnexae, [...] abnormal findings ABSENT Qualified Code(s): Z01.419 - Encounterfor gynecological examination (general) (routine) without abnormal findings Orders: Orders PAP I-G w/rfx hrHPV-Aptima Today Z12.4 - Encounter for screening for malignant neoplasm of cervix Plan Completed breast and pelvic exam Reviewed diet and exercise Pap thin prep pap start vitamin breast self exam encouraged monthly Contraception condoms RTO 1 year, prn with problems Lenore Au CLAY SHOP SUPERVISOR 09/28/24 1544 s IT TELECOM TECHNICIAN IT TELECOM TECHNICIAN-C> Date _ Lenore Au IT TELECOM TECHNICIAN IT TELECOM TECHNICIAN-C Cosigner Signature: Date (if applicable) CC: ~ [facility]08-11-2025 Progress note Author Lenore Au [facility] Note Date/Time September 28, 2024 3: 44pm [facility] [place] [facility] [address] [place] [address], [address] [place] [address] OFFICE VISIT Date of Service: 09/28/24 MR#: [id number] Acct: [id number] Name: ROSALVA LOPEZ Rep #: [id number] : 2000 Provider: BERT Au Age/Sex: 24/F [place] [facility] [place]: Signed Intake Vital Signs 09/25/23 15:45 09/28/24 15:27 Height 5 ft 3 in 5 ft 3 in Weight: 133 lb 7 oz BMI 23.6 BP 106/73 Intake 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) [place] Supervisor Required: No Is patient in pain?: No Allergies amoxicillin Allergy (Mild, Verified 09/28/24 15:35) Hives penicillin G Allergy (Mild, Verified 09/28/24 15:35) Hives polymyxin B Allergy (Mild, Verified 09/28/24 15:35) Hives Medications ?Medication ?Instructions ?Recorded ?Confirmed ?Type NK 09/28/24 09/28/24 History Is last menstrual period known: Yes Last Menstrual Period: 08/27/24 Post menopausal: No Patient : No : No Control Method: condoms [facility] Medical History Celiac disease Surgical History History of wisdom tooth extraction, class II edentulism Social History (Updated 09/28/24 @ 15:43 by BERT Turner NP) adopted: No household members: spouse number of children: 0 current occupational status: employed current occupation: [employer] sexually active: Yes Smoking Status: Never smoker alcohol intake: current alcohol intake frequency: holidays/special occasions only substance use type: does not use caffeine: No frequency: 3-4 times per week rudolph/alevism: Jainism seatbelt use: always do you feel safe at home: Yes 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. 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 Elective abortions Hx Para Spontaneous abortions Hx # Term Pregnancies Ectopic pregnancies Hx # Pregnancies Multiple births # of living children HPI Encounter for routine gynecological examination Details: ROSALVA LOPEZ is a 24 year old who presents [...] oriented to person and oriented to place [facility] Head: normal to inspection Neck Neck: normal [...] 1 year, prn with problems Lenore Au CNP 09/28/24 1544 <Electronically signed by Lenore quezada IT TELECOM TECHNICIAN IT TELECOM TECHNICIAN-C> Date _ Lenore uA IT TELECOM TECHNICIAN IT TELECOM TECHNICIAN-C Cosigner Signature: Date (if applicable) CC: ~ [place] [facility] Work Phone: 1(445) 286-985310-29-2024 History of Present illness Narrative* Kim Alvarenga APRN.CLAY SHOP SUPERVISOR - 12/17/2023 4:56 PM EDT CC: Patient presents with: Sinus Infection: Entered by patient Sinus Problem: Sinus issues x 10 days HPI: Rosalva Lopez is a 23 year old female who presents to the office with complaint of chest congestion, head congestion, cough, productive, and facial pain and pressure, sinus symptoms for 10 days. Symptoms are worsening Associated symptoms includes fatigue. Denies nausea, vomiting , and diarrhea. Treatments tried include nothing so far. with no relief of symptoms. Sick contacts: unknown. History of asthma, frequent episodes of bronchitis, chronic bronchitis, bronchiectasis or COPD: No Smoker: No Seasonal/environmental allergies: No The ROS is otherwise negative. The patient's pmh, medications, allergies, and past visits are reviewed. PHYSICAL EXAM: BP 102/64 Pulse 82 Temp 37.2 C (98.9 F) (Tympanic) Resp 18 Wt 57.7 kg (127 lb 3.3 oz) LMP07/08/2023 (Exact Date) SpO2 97% BMI 23.27 kg/m General appearance: alert, cooperative, pleasant, in no acute distress Head: Normocephalic, maxillary sinus pressure. Eyes: EOM's intact, conjunctiva pink and moist, no icterus, sclera white, non-injected Ears: Right ear: External ear/canal- Normal, TM - serous effusion. Left ear: External ear/canal- Normal, TM - clear with good landmarks, serous effusion Oropharynx:moist without lesions, No erythema, exudates or tonsillar hypertrophy. Heart: Negative. RRR without obvious murmur, gallop, or rubs. No ectopy. Lungs: clear to auscultation, without rales or wheeze, good air exchange PAST MEDICAL HISTORY Diagnosis Date Clavicle fracture age 3-4 resolved Constipation 09/26/2011 Croup resolved, frequent as young child Menstrual periods irregular 02/18/2013 Age 13 NEGATIVE HISTORY OF 09/26/2011 Normal Color VIsion Sessile serrated polyp of colon Syncope 02/18/2009 after getting ears pierced Tear of acetabular labrum 12/27/2015 PAST SURGICAL HISTORY Procedure Laterality Date COLONOSCOPY 02/28/2022 Minimal focal active colitis and sessile serrated polyp [facility] INJ 02/28/2022 EXTRACTION ERUPTED TOOTH/EXR 2015 ALLERGIES Amoxicillin and Polytrim [Polymyxin B Sulf-Trimethoprim] MEDICATIONS BEYAZ 3-0.02-0.451 mg (24) (4) tab Multivitamin capsule Take 1 capsule by mouth once daily. FAMILY HISTORY Problem Relation Age of Onset No Known Problems Mother No Known Problems Father No Known Problems Sister None Other Colon Cancer No Family History Ulcerative Colitis No Family History Crohn's Disease No Family History Social History Tobacco Use Smoking status: Never Smokeless tobacco: Never Vaping Use Vaping status: Never Used Substance Use Topics Alcohol use: No Drug use: No ASSESSMENT/PLAN: 1. Sinus congestion - ICD9: 478.19, ICD10: R09.81 (primary diagnosis) 2. Acute cough - ICD9: 786.2, ICD10: R05.1 3. Rhinosinusitis - ICD9: 473.9, ICD10: J32.9 - DOXYCYCLINE HYCLATE 100 MG TABLET Prescription instructions reviewed with patient as applicable. Potential red flag symptoms discussed with the patient. Reviewed appropriate action plan to take if red flag symptoms occur. Patient agreeable to treatment plan. Kim Alvarenga APRN.ALEX documented in this encounterOur [facility] Instructions* Patient Instructions* Argenis Singh APRN.CNP - 08/05/2023 9:26 AM EDT Start a daily probiotic and also consider a daily fiber supplement but make sure to research if gluten free. documented in this encounterOur Lady Of [facility] [place]06-[facility] History of Present illness Narrative* Argenis Singh APRN.CNP - 08/05/2023 9:11 AM EDT Images from the original note were not included. SUBJECTIVE Rosalva Lopez is a 23 year old female here today for a check up on her medical problems. Chief Complaint Patient presents with: Follow Up: gi issues- dx with celiac and lump on collar bone HPI Rosalva Lopez is a 23 year old female. Here today for follow up. Notes a lump on her neck. [place] this about a week ago. Onset about a week ago. No recent sickness. No tenderness, no redness and no increased warmth. Has not tried anything. Diagnosis of celiac, issues with constipation lately, back and forth with constipation and diarrhea. Trying to limit gluten. Wondering about repeat testing. Her medications were reviewed today and her list is now up to date. Medications Current Outpatient Medications Medication Sig BEYAZ 3-0.02-0.451 mg (24) (4) tab Multivitamin capsule Take 1 capsule by mouth once daily. No current facility-administered medications for this visit. Facility-Administered Medications Ordered in Other Visits Medication Dose Route Frequency lactated ringers iv infusion 30 mL/hr INTRAVENOUS CONTINUOUS ALLERGIES Allergen Reactions Amoxicillin Rash, Hives Polytrim [Polymyxin* Hives Mom reports child used a drop in her ear that had one component of this eye medication and had no reaction but mom thinks she is still allergic to the polytrim eye drops because she had hives when used the eye drops ACTIVE PROBLEM LIST Celiac Disease - 04/24/2022 Social History Tobacco Use Smoking status: Never Smokeless tobacco: Never Vaping Use Vaping Use: Never used Substance Use Topics Alcohol use: No Drug use: No Review of Systems Respiratory: Negative. Cardiovascular: Negative. OBJECTIVE BP 108/56 Pulse 85 Resp 12 Ht 5' 2 (1.58m) Wt 129 lb (58.5kg) SpO2 100% LMP 07/08/2023 BMI 23.59 kg/(m^2). Physical Exam Vitals and nursing note reviewed. Constitutional: General: She is awake. She is not in acute distress. Appearance: Normal appearance. She is well-developed and well-groomed. She is not ill-appearing, toxic-appearing or diaphoretic. HENT: Head: Normocephalic. Right Ear: External ear normal. Left Ear: External ear normal. Nose: Nose normal. Eyes: General: Vision grossly intact. Conjunctiva/sclera: Conjunctivae normal. Pupils: Pupils are equal, round, and reactive to light. Neck: Vascular: No JVD. Trachea: Trachea normal. Cardiovascular: Rate and Rhythm: Normal rate and regular rhythm. Pulses: Normal pulses. Heart sounds: Normal heart sounds. No murmur heard. Pulmonary: Effort: Pulmonary effort is normal. No accessory muscle usage, prolonged expiration or respiratory distress. Breath sounds: Normal breath sounds. Musculoskeletal: Cervical back: Neck supple. Skin: General: Skin is warm and dry. Capillary Refill: Capillary refill takes less than 2 seconds. Comments: Patient left side of anterior neck, just superior to the proximal clavicle with a smooth,easy to move, well rounded nodular mass, no erythema, edema or increased warmth or tenderness. Neurological: General: No focal deficit present. Mental Status: She is alert and oriented to person, place, and time. Mental status is at baseline. Psychiatric: Attention and Perception: Attention and perception normal. Mood and Affect: Mood and affect normal. Speech: Speech normal. Behavior: Behavior normal. Behavior is cooperative. Thought Content: Thought content normal. Cognition and Memory: Cognition and memory normal. Judgment: Judgment normal. ASSESSMENT/PLAN: 1. Lump on neck - ICD9: 784.2, ICD10: R22.1 (primary diagnosis) This does not feel to be inflamed, potentially an enlarged lymph node, will ultrasound. - US HEAD/NECK SOFT TISSUE OTHER 2. Celiac disease - ICD9: 579.0, ICD10: K90.0 Discussed starting a probiotic and fiber supplement. - CELIAC SCREEN WITH REFLEX Portions of this note have been entered by ancillary staff. I have reviewed and when necessary edited, so that they are an adequate record of my encounter with this patient Please note that parts of this document were created using voice recognition software and therefore may contain grammatical errors. Patient verbalizes understanding of instructions from today's visit and in agreement with treatmentplan. Questions answered. Agrees to call the office if questions, concerns of issues with acute symptoms not improving or if they worsen. See diagnoses and orders for additional plan(s). Allergies and medications were reviewed, list was updated, and refills given if needed. Past medical, surgical, social, and family history reviewed and updated as appropriate. Encouraged proper diet & exercise as well as compliance with taking medications. Age- appropriate health preventative measures were discussed. Return if symptoms worsen or fail to improve, for Keep next scheduled appointment.. Argenis Singh APRN-CLAY SHOP SUPERVISOR documented in this encounterOur [facility] Of [facility] [place]04-26-[facility] History of Present illness Narrative* Petrona Mccauley LPN - 06/14/2023 3:50 PM EDT Patient presents for PPD read only. Denies any problems at this time. Petrona Mccauley LPN documented in this encounterOur Lady Of [facility] [place]04-24-[facility]24 History of Present illness Narrative* Petrona Mccauley LPN - 06/12/2023 3:53 PM EDT Patient presents for PPD administration. Denies any problems at this time. Tolerated injection well. Petrona Mccauley LPN documented in this encounterOur Lady Of [facility] [place]04-22-2024 Miscellaneous Notes* Telephone Encounter - Petrona Mccauley LPN - 06/10/2023 8:29 AM EDT Patient scheduled for nurse visit 06/12/23 to receive PPD administration. Please place order at thistime. Petrona Mccauley LPN documented in this encounterOur Lady Of [facility] [place]04-19-2024 History of Present illness Narrative* Petrona Mccauley LPN - 06/07/2023 3:50 PM EDT Patient presents for PPD read only. Denies any problems at this time. Petrona Mccauley LPN documented in this encounterOur Lady Of [facility] [place]04-17-[facility] History of Present illness Narrative* Petrona Mccauley LPN - 06/05/2023 3:53 PM EDT Patient presents for PPD administration only. Denies any problems at this time. Tolerated injectionwell. Petrona Mccauley LPN documented in this encounterOur Lady Of [facility] [place]04-15-2024 Instructions* Patient Instructions* Olivia Vigil, DAX - 06/03/2023 8:29 AM EDT Consider adding vit D, B complex Aim for meals and snacks to equal closer to 1600 calories, include 30 grams per meal Read labels carefully for gluten; call brazing machine operator helper when in doubt. Follow a GF diet follow guidelines outlined in GF materials provided; include a multivitamin daily,aim for a balanced diet and regular exercise; include weight resistance exercise 2-3 times per week. Aim for adequate protein in diet such as: lean meats, chicken, turkey, fish; soy proteins, rice or pea protein isolates, nuts, nut butters, soy cheese or yogurts, beans/legumes, hummus Adequate calcium from: fortified soy, rice, hemp or almond milks; fortified juices, dark greens, molasses. Goal is for 1000 mg calcium per day. If unable to obtain adequate calcium from diet supplements with calcium supplements. Look for whole grain gluten free breads and cereals; include at least 5 servings of fruits, vegetables daily; include beans and legumes daily. Plan healthy snacks as needed throughout the day, snacks should add to the nutrition quality of thediet. When dining out, visits restaurants that will accommodate yoru dietary needs, call ahead to verify if unfamiliar with the restaurant. Going before the dinner hawthorne can be helpful as well. Request to speech with assembly manager or packaging associate documented in this encounterOur Lady Of [facility] [place]04-15-[facility]24 History of Present illness Narrative* Olivia Vigil RD - 06/03/2023 7:57 AM EDT Nutrition Therapy Initial Assessment Nutrition Diagnosis: Behavioral-Environmental: Food and nutrition related knowledge deficit, related to, lack of prior exposure to information , as evidenced by new medical diagnosis. RECOMMENDED MALNUTRITION DIAGNOSIS: NO MALNUTRITION IDENTIFIED NUTRITION CARE PLAN Nutrition Intervention 06/03/2023: comprehensive nutrition education Consider adding vit D, B complex Aim for meals and snacks to equal closer to 1600 calories, include 30 grams per meal Read labels carefully for gluten; call brazing machine operator helper when in doubt. Follow a GF diet follow guidelines outlined in GF materials provided; include a multivitamin daily,aim for a balanced diet and regular exercise; include weight resistance exercise 2-3 times per week. Aim for adequate protein in diet such as: lean meats, chicken, turkey, fish; soy proteins, rice or pea protein isolates, nuts, nut butters, soy cheese or yogurts, beans/legumes, hummus Adequate calcium from: fortified soy, rice, hemp or almond milks; fortified juices, dark greens, molasses. Goal is for 1000 mg calcium per day. If unable to obtain adequate calcium from diet supplements with calcium supplements. Look for whole grain gluten free breads and cereals; include at least 5 servings of fruits, vegetables daily; include beans and legumes daily. Plan healthy snacks as needed throughout the day, snacks should add to the nutrition quality of thediet. When dining out, visits restaurants that will accommodate yoru dietary needs, call ahead to verify if unfamiliar with the restaurant. Going before the dinner hawthorne can be helpful as well. Request to speech with assembly manager or packaging associate Nutrition Monitoring & Evaluation: adherence to recommendations Need for Follow up: 4-6 weeks or as needed Patient presents for initial MNT as relates to celiac disease, was diagnosed one year ago but did not have MNT for this. States still with fatigue but diarrhea resolved, does have occ constipation. Has questions about gluten free diet, does appears to be following a gluten free diet well, has a dedicated gluten free kitchen. States has fatigue after work, does have a more active job and has a lowcalorie in take during the day which may contribute to feelings of fatigue. Does report sleeping well. Patient's symptoms are: fatigue after work Diet History: Breakfast - meal replacement shake ([employer]), Evolution Snack - no Lunch - occ apple with pnb or mixed nuts Snack - no Dinner - usually cook; tacos, soups, last night: chipotle bowl Snack - no Beverages - water, vitamin water, occ soda Alcohol- no Vitamins/Supplements - MVI Activity: Activities of Daily Living: Active 75% of the day. 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 Resting Metabolic Rate: 1267 Malnutrition Screening Significant unintentional weight loss? No Eating less than 75% of usual intake for more than 2 weeks? No Potential Signs of Inflammation: no identifiable sources Education Materials Provided: Gluten Free Diet for Celiac Disease; gluten free resources READINESS TO LEARN Cognitive ability: Alert and oriented Motivation to learn: Interested Family support: Unable to assess - Family not present Instruction provided to: Patient Patient learns best by: Individual Instruction Factors affecting learning: None Physical limitations affecting learning: None Referred/Supervised by: Darrius WHITMORET Billing Type: Initial Assess/15 min 2 units SIGNATURE: Olivia Vigil RD PATIENT NAME: Rosalva Lopez DATE: June 03, 2023 TIME: 7:59 AM documented in this [facility]04-12-[facility] History of Present illness Narrative* Petrona Mccauley LPN - 05/31/2023 12:58 PM EDT Patient presents for Meningococcal B vaccine. Denies any problems at this time. Tolerated injectionwell. Petrona Mccauley LPN documented in this [facility]04-05-2024 Miscellaneous Notes* Telephone Encounter - Petrona Mccauley LPN - 05/24/2023 9:16 AM EDT Patient scheduled for nurse visit 06/05/23 to receive PPD test. Please place order at this time. Petrona Mccauley LPN documented in this [facility]03-22-2024 Miscellaneous Notes* Telephone Encounter - Petrona Mccauley LPN - 05/10/2023 10:33 AM EDT Patient scheduled for nurse visit 05/31/23 to receive Meningococcal B vaccine. Please place order atthis time. Petrona Mccauley LPN documented in this [facility]03-15-[facility] History of Present illness Narrative* Petrona Mccauley LPN - 05/03/2023 10:43 AM EDT Patient presents for Meningococcal B vaccine. Denies any problems at this time. Tolerated injectionwell. Petrona Mccauley LPN documented in this [facility]03-08-2024 History of Present illness Narrative* Kamala Peña, SUPERVISOR PAINTING SHIPYARD.STATISTICAL GENETICIST - 04/26/2023 8:00 AM EST SUBJECTIVE: Meningococcal B Vaccine: Consider Based On Risk(1 of 2 - Patient Seeks Protection) Never done Hepatitis C Screening Never done HIV Screening Never done HPI Rosalva Lopez is a 23 year old female. PMH significant for ACTIVE PROBLEM LIST Celiac Disease Presents today for routine physical exam. Former patient of Dr [facility]. Seen by Argenis Singh CNP 04/2022 for routine examination. Has not yet seen Varghese Rowley MD. CAR STORER: Lenore Au, Pap 2021, see scanned document/labs.Thinks she may have had STD screen at her last CAR STORER visit. Gastroenterology: Dr Dugan EGD and colonoscopy 02/28/2022. Biopsies were consistent with gluten allergy. Gluten-free diet was recommended. See pathology. Today reports She is in her usual state of health. She notes that she finds it difficult to eat outwith Celiac. Has occasional lower abdominal pain that may be food related. Notes some fatigue. 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 Heartburn: no Reflux: no Abdominal pain: lower occasional, thinks related to food Nausea: no Vomiting: no Occasional occasional alternating diarrhea and constipation. Not sure if related to diet BRBPR: no Black tarry: no Review of Systems Constitutional: Negative. Gastrointestinal: Positive for abdominal pain (occasional), constipation (occasional) and diarrhea (occasional). Objective BP 112/72 Pulse 88 Resp 16 Wt 57.2 kg (126 lb) LMP 04/10/2022 (Exact Date) SpO2 98% BMI23.05 kg/m Physical Exam Vitals and nursing note reviewed. Constitutional: Appearance: Normal appearance. HENT: Head: Normocephalic and atraumatic. Eyes: Conjunctiva/sclera: Conjunctivae normal. Neck: Thyroid: No thyromegaly. Vascular: No JVD. Cardiovascular: Rate and Rhythm: Normal rate and regular rhythm. Pulses: Carotid pulses are 2+ on the right side and 2+ on the left side. Radial pulses are 2+ on the right side and 2+ on the left side. Heart sounds: Normal heart sounds. Pulmonary: Effort: Pulmonary effort is normal. Breath sounds: Normal breath sounds. Abdominal: General: Bowel sounds are normal. Palpations: Abdomen is soft. Musculoskeletal: Right lower leg: No edema. Left lower leg: No edema. Skin: General: Skin is warm and dry. Neurological: General: No focal deficit present. Mental Status: She is alert and oriented to person, place, and time. ALLERGIES Allergen Reactions Amoxicillin Rash, Hives Polytrim [Polymyxin* Hives Mom reports child used a drop in her ear that had one component of this eye medication and had no reaction but mom thinks she is still allergic to the polytrim eye drops because she had hives when used the eye drops Medication BEYAZ 3-0.02-0.451 mg (24) (4) tab^^Disp: ^Rfl: Multivitamin capsule^Take 1 capsule by mouth once daily.^Disp: ^Rfl: PAST MEDICAL HISTORY Diagnosis Date Clavicle fracture age 3-4 resolved Constipation 09/26/2011 Croup resolved, frequent as young child Menstrual periods irregular 02/18/2013 Age 13 NEGATIVE HISTORY OF 09/26/2011 Normal Color VIsion Sessile serrated polyp of colon Syncope 02/18/2009 after getting ears pierced Tear of acetabular labrum 12/27/2015 Social History Tobacco Use Smoking status: Never Smokeless tobacco: Never Vaping Use Vaping Use: Never used Substance Use Topics Alcohol use: No Drug use: No ASSESSMENT/PLAN: 1. Wellness examination - ICD9: V70.0, ICD10: Z00.00 (primary diagnosis) - Endorse healthy gluten free diet and regular exercise - Endorse calcium intake with supplements or by diet of 1000 mg/day - MENINGOCOCCAL B VACCINE (BEXSERO) - HEPATITIS C ANTIBODY IA WITH CONFIRMATION - HIV 1 2 COMBO(AG/AB),WITH REFLEX TO DIFFERENTIATION - DEPRESSION SCREENING/ASSESSMENT - COMP METABOLIC PANEL - CBC + DIFF - TSH BLD - VITAMIN D 25 HYDROXY - IRON + TIBC - FERRITIN BLD - TRANSFERRIN BLD - VITAMIN A/RETINOL - VITAMIN B12 BLOOD - FOLATE SERUM - ZINC BLD 2. Encounter for immunization - ICD9: V03.89, ICD10: Z23 - MENINGOCOCCAL B VACCINE (BEXSERO) 3. Screening for STD (sexually transmitted disease) - ICD9: V74.5, ICD10: Z11.3 4. Special screening examination for viral disease - ICD9: V73.99, ICD10: Z11.59 - HEPATITIS C ANTIBODY IA WITH CONFIRMATION 5. Screening for HIV (human immunodeficiency virus) - ICD9: V73.89, ICD10: Z11.4 - HIV 1 2 COMBO(AG/AB),WITH REFLEX TO DIFFERENTIATION 6. Celiac disease - ICD9: 579.0, ICD10: K90.0 - CONSULT TO NUTRITION THERAPY - COMP METABOLIC PANEL - CBC + DIFF - TSH BLD - VITAMIN D 25 HYDROXY - IRON + TIBC - FERRITIN BLD - TRANSFERRIN BLD - VITAMIN A/RETINOL - VITAMIN B12 BLOOD - FOLATE SERUM - ZINC BLD Schedule an appointment with Dr. Dugan gastroenterology or one of his associates Schedule dietitian visit, video okay 1 year follow-up Varghese Rowley MD - physical Kamala Peña APRN.STATISTICAL GENETICIST documented in this encounterOur [facility] Instructions* Patient Instructions* Jossue Figueroa APRN.CLAY SHOP SUPERVISOR - 08/10/2022 7:49 AM EDT [facility] PATIENT INFO PHARYNGITIS OVERVIEW A sore throat (pharyngitis) is a common problem, and usually is caused by a viral or bacterial infection. Sore throat usually resolves on its own without complications in adults, although it is important to know when to seek medical attention. Viruses can cause a sore throat and other upper respiratory infections, such as the common cold. Sore throat caused by a virus is not treated with antibiotics, but instead may be treated with rest, pain medication, and other therapies aimed at relieving symptoms. Strep throat is a particular kind of pharyngitis that is caused by a bacterium known as group A streptococcus (GAS). Strep throat is treated with a course of antibiotics. SORE THROAT SYMPTOMS Viral pharyngitis -- Most people with a sore throat have a virus. The most common viruses are thosethat cause upper respiratory infections, such as the common cold. Symptoms of a viral infection can include: A runny or congested nose Irritation or redness of the eyes Cough, hoarseness, or soreness in the roof of the mouth Some viruses cause a fever and can make you feel quite ill. Strep throat -- Approximately 10 percent of adults with a sore throat have strep throat. Signs and symptoms of strep throat include the following: Pain in the throat Fever (temperature greater than 100.4 F or 38 C) Enlarged lymph glands in the neck White patches of pus on the side or back of the throat No cough, runny nose, or irritation/redness of the eyes Other infections -- Many other less common but more serious infections can cause a sore throat, including mononucleosis (mono), influenza (the flu), N. gonococcus (gonorrhea), human immunodeficiency virus (HIV), and others. When to seek urgent help -- See your doctor or nurse immediately if you have a sore throat along with any of the following: Difficulty breathing Skin rash Drooling because you cannot swallow Swelling of the neck or tongue Stiff neck or difficulty opening the mouth SORE THROAT DIAGNOSIS Most people with a sore throat get better without treatment. There is no specific treatment for a sore throat caused by usual cold viruses. Is it strep or not? -- A combination of symptoms (fever, enlarged glands in the neck, white patcheson your tonsils, and no cough) can help in determining if you have strep. If you have two or more symptoms, a rapid test or throat culture may be done. People with fewer than two symptoms usually do not need testing or treatment for strep throat. Rapid test -- The rapid test determines if there are streptococcus bacteria on a throat swab. The test can be done in a clinician's office and the results are available within a few minutes. The testis accurate in most cases, although a small percentage of tests are falsely negative (the bacteria are present but the test is negative). Throat culture -- A throat culture involves swabbing the throat, sending the swab to a laboratory, and waiting 24 to 48 hours for the results. Throat cultures are slightly more accurate than the rapid test. TREATMENT OF SORE THROAT Sore throat treatment -- Antibiotics do not help throat pain caused by a virus and are not recommended. Sore throat caused by viral infections usually lasts four to five days. During this time, treatments to reduce pain may be helpful. Several therapies can help to relieve throat pain. Pain medication -- You can treat your throat pain with a mild pain reliever such as acetaminophen (Tylenol ) or a non-steroidal anti-inflammatory agent such as ibuprofen or naproxen (Motrin or Aleve ). Oral rinses -- Salt-water gargles are an old stand-by for throat pain. It is not clear that salt water works to relieve pain, but it is unlikely to be harmful. Most recipes suggest 1/4 to 1/2 teaspoon of salt per one cup (8 ounces) of warm water. Sprays -- Sprays containing topical anesthetics (eg, benzocaine, phenol) are available to treat sore throat. However, such sprays are no more effective than sucking on hard candy. Lozenges -- A variety of lozenges (cough drops) are available to treat throat pain or relieve dryness. However, it is not clear that lozenges work any better than other forms of hard candy, which aregenerally less expensive. Other treatments -- Other treatments that may help with throat pain include sipping warm beverages (eg, honey or lemon tea, chicken soup), cold beverages, or eating cold or frozen desserts (eg, ice cream, popsicles). Alternative therapies -- Health food stores, vitamin outlets, and Internet Web sites offer alternative treatments for relief of sore throat pain. We do not recommend these type of treatments due to the risks of contamination with pesticides/herbicides, inaccurate labeling and dosing information, and a lack of studies showing that these treatments are safe and effective. Strep throat -- Although strep throat typically resolves on its own within two to five days, treatment with antibiotics is recommended for adults whose rapid test or throat culture is positive for strep throat. Penicillin, or an antibiotic related to penicillin, is the treatment of choice for strep throat. Itis usually given in pill or liquid form two to four times per day for 10 days. A one time injectionof penicillin is also available. People who are allergic to penicillin are given an alternate antibiotic. It is important to finish the entire course of treatment to completely eliminate the infection. If symptoms do not begin to improve or worsen by three days of antibiotic treatment, you should seeyour doctor or nurse again. Return to work/school -- If you have been diagnosed with strep throat, stay home from work or school until you have completed 24 hours of antibiotics. Within 24 hours of beginning antibiotic treatment, you will feel better and will be less contagious [1]. If you have a sore throat (not diagnosed as strep), you may participate in your usual activities assoon as you feel well. SORE THROAT PREVENTION Hand washing is an essential and highly effective way to prevent the spread of infection. Wet your hands with water and plain soap, and rub them together for 15 to 30 seconds. Pay special attention to the fingernails, between the fingers, and the wrists. Rinse your hands thoroughly, and dry them with a clean towel. Alcohol-based hand rubs are a good alternative for disinfecting hands if a sink is not available. Hand rubs should be spread over the entire surface of hands, fingers, and wrists until dry, and may be used several times. These rubs can be used repeatedly without skin irritation or loss of effectiveness. Hand rubs are available as a liquid or wipe in small, portable sizes that are easy to carry in a pocket or handbag. When a sink is available, visibly soiled hands should be washed with soap and water. Wash your hands after coughing, blowing the nose, or sneezing. While it is not always possible to avoid being near a person who is sick, avoiding touching your eyes, nose, or mouth to prevent the spread of infection. In addition, tissues should be used to cover the mouth when sneezing or coughing. These used tissues should be disposed of promptly. Sneezing/coughing into your sleeve (at the inner elbow) is anotherway to contain sprays of saliva and secretions and will not contaminate your hand documented in this encounterOur [facility] History of Present illness Narrative* Jossue Figueroa APRN.CNP - 08/10/2022 7:34 AM EDT Subjective HPI Nontoxic-appearing female presents urgent care chief complaint sore throat ear pain. Duration of symptoms 1 week. Associated symptoms listed above. No OTC medication use. States feels like sore throat has worsened over the last 24 hours. Presents today for evaluation. No known sick contacts. 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 History of strep throat this does not feel similar. Denies any difficulty swallowing handling secretions decreased range of motion of neck. Denies any fever body aches chills productive cough chest pain shortness of breath pleuritic pain hemoptysis nausea vomiting abdominal pain change in bowel or bladder habits. Past medical history prescription medication use and allergiesreviewed. .Patient presents with: Sore Throat: Bilateral ear pain x1 week PAST MEDICAL HISTORY Diagnosis Date Clavicle fracture age 3-4 resolved Constipation 09/26/2011 Croup resolved, frequent as young child Menstrual periods irregular 02/18/2013 Age 13 NEGATIVE HISTORY OF 09/26/2011 Normal Color VIsion Sessile serrated polyp of colon Syncope 02/18/2009 after getting ears pierced PAST SURGICAL HISTORY Procedure Laterality Date COLONOSCOPY 02/28/2022 Minimal focal active colitis and sessile serrated polyp EGD W/O BRSH SPEC VARICIES INJ 02/28/2022 EXTRACTION ERUPTED TOOTH/EXR 2015 ALLERGIES Amoxicillin and Polytrim [Polymyxin B Sulf-Trimethoprim] MEDICATIONS BEYAZ 3-0.02-0.451 mg (24) (4) tab^^Disp: ^Rfl: Multivitamin capsule^Take 1 capsule by mouth once daily.^Disp: ^Rfl: FAMILY HISTORY Problem Relation Age of Onset None Other Colon Cancer No Family History Ulcerative Colitis No Family History Crohn's Disease No Family History Social History Tobacco Use Smoking status: Never Smokeless tobacco: Never Vaping Use Vaping Use: Never used Substance Use Topics Alcohol use: No Drug use: No BP 100/70 Pulse 76 Temp 36.4 C (97.6 F) Resp 18 Wt 57.2 kg (126 lb 3.2 oz) LMP 04/10/2022(Exact Date) SpO2 100% BMI 23.08 kg/m Review of Systems Constitutional: Negative for chills, fever and malaise/fatigue. HENT: Positive for ear pain and sore throat. Negative for congestion, ear discharge and sinus pain. Eyes: Negative for blurred vision, pain, discharge and redness. Respiratory: Negative for cough, hemoptysis, sputum production, shortness of breath, wheezing and stridor. Cardiovascular: Negative for chest pain. Gastrointestinal: Negative for abdominal pain, diarrhea, nausea and vomiting. Musculoskeletal: Negative for myalgias. Skin: Negative for itching and rash. Neurological: Negative for dizziness and headaches. Objective Physical Exam Constitutional: General: She is not in acute distress. Appearance: She is not diaphoretic. HENT: Head: Normocephalic. Jaw: No trismus, tenderness, swelling or pain on movement. Right Ear: Tympanic membrane, ear canal and external ear normal. Left Ear: Tympanic membrane, ear canal and external ear normal. Mouth/Throat: Lips: [place]. Mouth: Mucous membranes are moist. Pharynx: Oropharynx is clear. Uvula midline. Posterior oropharyngeal erythema present. No pharyngeal swelling, oropharyngeal exudate or uvula swelling. Eyes: Conjunctiva/sclera: Conjunctivae normal. Pupils: Pupils are equal, round, and reactive to light. Cardiovascular: Rate and Rhythm: Normal rate and regular rhythm. Heart sounds: Normal heart sounds. Pulmonary: Effort: Pulmonary effort is normal. No tachypnea, accessory muscle usage or respiratory distress. Breath sounds: Normal breath sounds. No stridor. No wheezing, rhonchi or rales. Abdominal: Palpations: Abdomen is soft. Tenderness: There is no abdominal tenderness. There is no guarding or rebound. Musculoskeletal: Cervical back: Normal range of motion and neck supple. No edema, erythema, rigidity or tenderness. No pain with movement. Normal range of motion. Lymphadenopathy: Cervical: No cervical adenopathy. Skin: General: Skin is warm and dry. Neurological: Mental Status: She is alert and oriented to person, place, and time. ASSESSMENT/PLAN: 1. Pharyngitis, unspecified etiology - ICD9: 462, ICD10: J02.9 - STREP A MOLECULAR (POC) Strep test negative. Treat as viral pharyngitis. No evidence of bacterial fracture noted. Patient was educated on supportive therapies. Patient will follow up with primary care provider as needed. Patient was instructed to immediately proceed to emergency room for any new, worsening, or symptoms las ting longer than anticipated. The patient's clinical presentation is otherwise unremarkable at thistime. Based on exam and clinical finding, the patient is stable for discharge. Plan of care was discussed with patient. Patient verbalizes understanding and agrees to plan of care. This note was generated using Method software. It may contain errors in wording, punctuation, or spelling. Jossue Figueroa APRN.ALEX documented in this encounterOur [facility] [place] History of Present illness Narrative* Petrona Mccauley LPN - 05/22/2022 10:33 AM EDT Patient presents for PPD administration only. Denies any problems at this time. Tolerated injectionwell. Petrona Mccauley LPN documented in this [facility]03-28-2023 Miscellaneous Notes* Telephone Encounter - Argenis Singh APRN.CNP - 05/15/2022 11:46 AM EDT Order placed. * Telephone Encounter - Petrona Mccauley LPN - 05/15/2022 11:43 AM EDT Patient scheduled for nurse visit 05/22/22 to receive PPD injection. Please place order at this time. Petrona Mccauley LPN documented in this encounterOur [facility] History of Present illness Narrative* Petrona Mccauley LPN - 05/09/2022 9:41 AM EDT Patient presents for PPD read only. Denies any problems at this time. Petroan Mccauley LPN documented in this encounterOur [facility] History of Present illness Narrative* Petrona Mccauley LPN - 05/07/2022 9:59 AM EDT Patient presents for PPD administration. Denies any problems at this time. Tolerated injection well. Petrona Mccauley LPN documented [facility]03-17-[facility]23 Miscellaneous Notes* Telephone Encounter - Argenis Singh APRN.CNP - 05/04/2022 10:32 AM EDT signed * Telephone Encounter - Petrona Mccauley LPN - 05/04/2022 9:05 AM EDT Patient scheduled for nurse visit 05/07/22 to receive PPD test. Please place order at this time. Petrona Mccauley LPN documented in this encounterOur [facility] History of Present illness Narrative* Argenis Singh APRN.ALEX - 04/24/2022 2:45 PM EST CHIEF COMPLAINT: Patient presents with: Establish Care: needs a pre-employment for completed HISTORY: Rosalva Lopez is a 22 year old female who presents 04/24/2022 for her Yearly Physical Exam, needs awork physical done. She is also establishing care. She is a prior patient of Dr. Martinez with our pediatrics department. They are here today for a wellness exam. Generally feels well and does not have complaints. Does wear a seatbelt when riding in a car. Does have smoke detectors and a carbon monoxide detector in the home. Is able to complete ADL's with independence. Had a colonoscopy and EGD recently. Showed gluten allergy. Stomach pain and diarrhea. Has been avoiding gluten for about a month. No other medical issues. Other Providers: Sees [place] [employer] Saw GI in the past Depression Screen Q1: Over the past two weeks, have you felt down, depressed or hopeless? No Q2: Over the past two weeks, have you felt little interest or pleasure in doing things? 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 Are periods regular? Yes Any concerns about her periods? No Current method of control: Oral contraceptives Last Pap: No results found for: CYTO Hx of Abnml Pap: no Family Hx Breast CA: no Family Hx Colon CA: no Past Medical History: PAST MEDICAL HISTORY Diagnosis Date Clavicle fracture age 3-4 resolved Constipation 09/26/2011 Croup resolved, frequent as young child Menstrual periods irregular 02/18/2013 Age 13 NEGATIVE HISTORY OF 09/26/2011 Normal Color VIsion Sessile serrated polyp of colon Syncope 02/18/2009 after getting ears pierced Family Medical History: FAMILY HISTORY Problem Relation Age of Onset None Other Colon Cancer No Family History Ulcerative Colitis No Family History Crohn's Disease No Family History Social History: Social History Tobacco Use Smoking status: Never Smokeless tobacco: Never Vaping Use Vaping Use: Never used Substance Use Topics Alcohol use: No Drug use: No Allergies: ALLERGIES Allergen Reactions Amoxicillin Rash, Hives Polytrim [Polymyxin* Hives Mom reports child used a drop in her ear that had one component of this eye medication and had no reaction but mom thinks she is still allergic to the polytrim eye drops because she had hives when used the eye drops Medications: Current Outpatient Medications Medication Sig BEYAZ 3-0.02-0.451 mg (24) (4) tab Multivitamin capsule Take 1 capsule by mouth once daily. No current facility-administered medications for this visit. Facility-Administered Medications Ordered in Other Visits Medication Dose Route Frequency lactated ringers iv infusion 30 mL/hr INTRAVENOUS CONTINUOUS Chronic Problem List: ACTIVE PROBLEM LIST Celiac Disease - 04/24/2022 Review of Systems Review of Systems Constitutional: Negative. Respiratory: Negative for cough, chest tightness, shortness of breath and wheezing. Cardiovascular: Negative for chest pain, palpitations and leg swelling. Gastrointestinal: Positive for abdominal pain and diarrhea. Musculoskeletal: Negative. Hematological: Negative. OBJECTIVE BP 100/60 Pulse 79 Ht 5' 2 (1.58m) Wt 126 lb (57.2kg) SpO2 98% LMP 04/10/2022 BMI 23.04 kg/(m^2). Physical Exam Vitals and nursing note reviewed. Constitutional: General: She is awake. She is not in acute distress. Appearance: Normal appearance. She is well-developed and well-groomed. She is not ill-appearing, toxic-appearing or diaphoretic. HENT: Head: Normocephalic. Right Ear: Hearing, tympanic membrane, ear canal and external ear normal. Left Ear: Hearing, tympanic membrane, ear canal and external ear normal. Nose: Nose normal. Eyes: General: Vision grossly intact. Conjunctiva/sclera: Conjunctivae normal. Pupils: Pupils are equal, round, and reactive to light. Neck: Thyroid: No thyroid mass, thyromegaly or thyroid tenderness. Vascular: No JVD. Trachea: Trachea normal. Cardiovascular: Rate and Rhythm: Normal rate and regular rhythm. Pulses: Normal pulses. Heart sounds: Normal heart sounds. No murmur heard. Pulmonary: Effort: Pulmonary effort is normal. No accessory muscle usage, prolonged expiration or respiratory distress. Breath sounds: Normal breath sounds. Musculoskeletal: General: Normal range of motion. Cervical back: Neck supple. Right lower leg: No edema. Left lower leg: No edema. Lymphadenopathy: Cervical: No cervical adenopathy. Skin: General: Skin is warm and dry. Capillary Refill: Capillary refill takes less than 2 seconds. Neurological: General: No focal deficit present. Mental Status: She is alert and oriented to person, place, and time. Mental status is at baseline. Psychiatric: Attention and Perception: Attention and perception normal. Mood and Affect: Mood and affect normal. Speech: Speech normal. Behavior: Behavior normal. Behavior is cooperative. Thought Content: Thought content normal. Cognition and Memory: Cognition and memory normal. Judgment: Judgment normal. ASSESSMENT/PLAN: 1. Wellness examination - ICD9: V70.0, ICD10: Z00.00 (primary diagnosis) - Counseled on healthy diet and regular exercise - Calcium intake with supplements or by diet of 1000 mg/day for under 50, 1200- 1500 mg/day for 50+ Physical for work, no issues noted, cleared for work - DEPRESSION SCREENING/ASSESSMENT 2. Celiac disease - ICD9: 579.0, ICD10: K90.0 Avoid gluten, possibly some lactose intolerance too so try to limit dairy. 3. Encounter to establish care - ICD9: V65.8, ICD10: Z76.89 Wellness exam completed. Health maintenance reviewed and updated. Chronic conditions and medications reviewed and updated as needed. Encouraged regular physical activity as tolerated, Healthy diet, and health promoting lifestyle. Encouraged regular eye doctor and dental visits Portions of this note have been entered by ancillary staff. I have reviewed and when necessary edited, so that they are an adequate record of my encounter with this patient Please note that parts of this document were created using voice recognition software and therefore may contain grammatical errors. Patient verbalizes understanding of instructions from today's visit and in agreement with treatmentplan. Questions answered. Agrees to call the office if questions, concerns or issues with acute symptoms not improving or if they worsen. See diagnoses and orders for additional plan(s). Allergies and medications were reviewed, list was updated, and refills given if needed. Past medical, surgical, social, and family history reviewed and updated as appropriate. Encouraged proper diet & exercise as well as compliance with taking medications. Age- appropriate health preventative measures were discussed. Return in about 1 year (around 04/25/2023) for Wellness physical.. LUCIANO Traylor documented in this encounterOur [facility] Nurse Note* Nati Mcgarry RN - 02/28/2022 12:[address] Dugan at bedside to speak to patient. Verbalizes understanding. OK to d/c. [facility] Note* Nati Mcgarry RN - 02/28/2022 12:[address] Dugan at bedside to speak to patient. Verbalizes understanding. OK to d/c. documented in this encounterOur Lady Of [facility] [place] History and physical note * Joy Dugan MD - 02/28/2022 11:00 AM EST HISTORY AND PHYSICAL Rosalva A John, 21 year old female Current history and physical on file: Yes Is a new History and Physical required for today's visit? No Indication for procedure: Diarrhea and CD PROCEDURE(S) SCHEDULED FOR: Colonoscopy with or without biopsies and with or without removal of polyps or lesions, dilation (any means), treatment of bleeding (any means), based on clinical findings. and EGD (Esophagogastroduodenoscopy) with or without biopsies, removal of polyps or lesions, dilation ( any means), treatment of bleeding ( any means), Barrx treatment of Fred's Esophagus, image tube placement or cryo therapytreatment based on clinical findings. BASELINE BEHAVIOR: Calm BASELINE ORIENTATION: A & O x3 All medications and allergies reviewed: Yes Skin Assessment: Warm dry mucus membranes pink Airway/Respiratory Assessment: Airway: visualization of the uvula- Yes Mouth: opening greater than 2 fingerbreadths- Yes Neck: full range of motion- Yes Breath sounds clear/equal- Yes Cardiac Assessment: Regular rate and rhythm without murmur Abdominal Assessment: Abdomen soft, non-tender, no masses or organomegaly. Sedation Plan: MAC Additional Comments: None Joy Dugan MD [facility] Work Phone: [phone] 952-106101-11-2023 History and physical note* Joy Dugan MD - 02/28/2022 11:00 AM EST HISTORY AND PHYSICAL Rosalva Davis [place]vee, 21 year old female Current history and physical on file: Yes Is a new History and Physical required for today's visit? No Indication for procedure: Diarrhea and CD PROCEDURE(S) SCHEDULED FOR: Colonoscopy with or without biopsies and with or without removal of polyps or lesions, dilation (any means), treatment of bleeding (any means), based on clinical findings. and EGD (Esophagogastroduodenoscopy) with or without biopsies, removal of polyps or lesions, dilation ( any means), treatment of bleeding ( any means), Barrx treatment of Fred's Esophagus, image tube placement or cryo therapytreatment based on clinical findings. BASELINE BEHAVIOR: Calm BASELINE ORIENTATION: A & O x3 All medications and allergies reviewed: Yes Skin Assessment: Warm dry mucus membranes pink Airway/Respiratory Assessment: Airway: visualization of the uvula- Yes Mouth: opening greater than 2 fingerbreadths- Yes Neck: full range of motion- Yes Breath sounds clear/equal- Yes Cardiac Assessment: Regular rate and rhythm without murmur Abdominal Assessment: Abdomen soft, non-tender, no masses or organomegaly. Sedation Plan: MAC Additional Comments: None Joy Dugan MD documented in this encounterOur Lady Of [facility]11-30-[facility]22 Instructions* Patient Instructions* Joy Dugan MD - 01/17/2022 4:41 PM EST Images from the original note were not included. Bowel Preparation Instructions for: Miralax-Gatorade Preparations IF YOU DO NOT FOLLOW THESE DIRECTIONS, YOUR COLONOSCOPY WILL BE CANCELLED. [place] Instructions: Your bowel must be empty so that your doctor can clearly view your colon. Follow all of the instructions in this handout EXACTLY as they are written. Do NOT eat any solid food the ENTIRE day before your colonoscopy. Buy your bowel preparation at least 5 days before your colonoscopy. Four (4) Dulcolax laxative tablets containing 5mg of bisacodyl each (NOT Dulcolax stool softener) One (1) 8.3oz. bottle Miralax (238 grams) or generic equivalent 2 x 32oz. Bottles of Gatorade (NOT RED) Diabetic Patients: Use G2 (Gatorade 2) TRANSPORTATION on the Day of Your Exam A responsible adult MUST be present with you at Check In prior to your colonoscopy and REMAIN in the endoscopy area until you are discharged. You are NOT ALLOWED to drive, take a taxi or bus, or leave the Endoscopy Center ALONE. If you do not have a responsible tow motor driver (family member or friend) withyou to take you home, your exam cannot be done with sedation and will be cancelled. Please bring a list of all of your current medications, including any [id number] medications with you. Medications If you take insulin, diabetic medications or blood thinners such as Coumadin (warfarin), Plavix (clopidogrel), Ticlid (ticlopidine hydrochloride), Agrylin (anagrelide), Xarelto (Rivaroxaban), Pradaxa(Dabigatran), Eliquis (Apixaban), and Effient (Prasugrel). You MUST call the doctors who orders those medicines for instructions on altering the dosage before your colonoscopy. All other medications should be taken the day of the exam with a sip of water including ASPIRIN. Five (5) Days Before Your Colonoscopy Do NOT take medicines that stop diarrhea - such as Imodium, Kaopectate, or Pepto Bismol. Do NOT take fiber supplements - such as Metamucil, Citrucel, or Perdiem. Do NOT take products that contain iron - such as multi-vitamins (the label lists what is in the products). Three (3) Days Before Your Colonoscopy Do NOT eat high-fiber foods - such as popcorn, beans, seeds (flax, sunflower, quinoa), multigrain bread, nuts, salad/vegetables, or fresh and dried fruit. 1 Bowel Preparation Instructions for: Miralax-Gatorade Preparations One (1) Day Before Your Colonoscopy Only drink clear liquids the ENTIRE DAY before your colonoscopy. Do NOT eat any solid foods. Drink at least 8 ounces of clear liquids every hour after waking up. The clear liquids you can drink include: Clear Liquid (NO RED LIQUIDS) DO NOT DRINK Gatorade, Pedialyte or Powerade Clear broth or bouillon Coffee or tea (no milk or non-dairy creamer) Carbonated and non-carbonated soft drinks Keven-Aid or other fruit flavored drinks Strained fruit juices (no pulp) Jell-O, popsicles, hard candy Water Alcohol Milk or non-dairy creamers Noodles or vegetables in soup Juice with pulp Liquid you cannot see through Do not use tobacco/vaping products Mix 1/2 of Miralax bottle (119 grams) in each 32 ounces of Gatorade bottle until dissolved. Keep cool in the refrigerator. DO NOT ADD ICE. The bowel preparation solution will be consumed in two parts. Part 1 5:00 PM - Evening before your colonoscopy Take 4 Dulcolax tablets. 6 PM - Evening before your colonoscopy Drink 32 oz. of the mixed solution. Drink an 8 oz. glass of bowel preparation every 15 minutes for a total of 4 glasses. Fifteen (15) minutes later, drink an 8 oz. glass of of clear liquids every 15 minutes for a total of 2 glasses. You may continue to drink clear liquids till midnight. Part 2 On the day of your colonoscopy you may drink clear liquids up to (three) 3 hours prior to procedure. 4 1/2 hours before your colonoscopy Take another 32 oz. bottle of mixed solution. Drink an 8 oz. glass of bowel prep every 15 minutes for a total of 4 glasses. Fifteen (15) minutes later, drink an 8 oz. glass of clear liquids every 15 minutes for a total of 2glasses. You may continue to drink clear liquids up to (three) 3 hours before your exam. 2 01/2019 [facility] History of Present illness Narrative* Joy Dugan MD - 01/17/2022 4:05 PM EST CHIEF COMPLAINT: Patient presents with: Abdominal Pain: Bloody stool, diarrhea-Referral in [facility] This consult was requested by Rufus Martinez MD for an opinion regarding bloody stool. My final recommendations will be communicated to the requesting health care provider by way of the shared medical record for internal providers or letter via the [facility] Postal Service for external providers. HPI: Rosalva Lopez is a 21 year old female who presents for Abdominal Pain (Bloody stool, diarrhea-Referral in [facility] ). Pt with stomach issues Mainly lower abd pain Pam after eating Described as stomach pain and diarrhea For 6 years Can not pinpoint a trigger No bloating No weight loss Endorsed seeing blood in the stool x 3 times - on the wipes Never had EGD or colonoscopy ++ celiac panel . Father aunt has it . Mother with IBS symptoms Some straining and incomplete evacuation Record Review: [facility] / Outside records reviewed. PAST MEDICAL HISTORY Diagnosis Date Clavicle fracture age 3-4 resolved Constipation 09/26/2011 Croup resolved, frequent as young child Menstrual periods irregular 2013 Age 13 NEGATIVE HISTORY OF 8-8-12 Normal Color VIsion Syncope 2009 after getting ears pierced PAST SURGICAL HISTORY Procedure Laterality Date EXTRACTION ERUPTED TOOTH/EXR 2015 Allergies: ALLERGIES Allergen Reactions Amoxicillin Rash, Hives Polytrim [Polymyxin* Hives Mom reports child used a drop in her ear that had one component of this eye medication and had no reaction but mom thinks she is still allergic to the polytrim eye drops because she had hives when used the eye drops Medications: BEYAZ 3-0.02-0.451 mg (24) (4) tab Multivitamin capsule Take 1 capsule by mouth once daily. FAMILY HISTORY Problem Relation Age of Onset None Other Colon Cancer No Family History Ulcerative Colitis No Family History Crohn's Disease No Family History Employer And Job Title: None on file Years Of Education Completed: Not specified Marital Status: Single Social History Tobacco Use Smoking status: Never Smokeless tobacco: Never Vaping Use Vaping Use: Never used Substance Use Topics Alcohol use: No Drug use: No Review of Systems: Review of Systems Gastrointestinal: Positive for abdominal pain and diarrhea. All other systems reviewed and are negative. Are you taking any blood thinners? No Physical Examination: BP 118/80 Pulse 88 Ht 5' 2.4 (1.59m) Wt 128 lb 3.2 oz (58.2kg) LMP 08/12/2019 BMI 23.15 kg/(m^2). Physical Exam General: Alert, oriented, No acute distress. Skin: No rash; warm. Head: Normocephalic, atraumatic. Eyes: EOMI, PERRLA. Lymph: No cervical lymphadenopathy. Thyroid: Neck supple. No thyromegaly. Heart: S1, S2. No murmurs, gallops or rubs. Lungs: Clear to auscultation bilaterally. No wheezes or crackles. Abdomen: Soft, tender in the lower abdomen, nondistended. Bowel sounds are normal. No organomegaly. Musculoskeletal: No joint swelling or effusion. Extremities: No cyanosis, clubbing or edema. Mental: Mood appropriate. Not depressed. Neuro: Cranial nerves II through XII intact. ASSESSMENT: Abdominal pain, unspecified abdominal location Abnormal laboratory test result Bloody stool Diarrhea, unspecified type Abdominal pain, lower (primary encounter diagnosis) Celiac disease PLAN: Schedule upper endoscopy with small bowel biopsies to evaluate diarrhea and confirm the diagnosis of celiac disease Schedule colonoscopy to evaluate rectal bleeding and obtain random colon biopsies Check CBC, BMP, hepatic function panel, vitamin D levels, vitamin A levels, vitamin B12 levels, folate levels, zinc levels, and iron studies Advised to cut down on eating gluten but not to eliminate completely This office note has been created using [employer], a speech recognition software program, and may contain errors including punctuation, grammar, spelling, gender, and inappropriate words or phrases that pertain to the sytem. Joy Dugan MD Office Visit on 01/17/22 CBC + DIFF BASIC METABOLIC PNL HEPATIC FUNCTION PNL VITAMIN D 25 HYDROXY VITAMIN A/RETINOL VITAMIN B12 BLOOD FOLATE SERUM ZINC BLD IRON + TIBC FERRITIN BLD CONSULT TO GASTROENTEROLOGY EGD DIAGNOSTIC COLONOSCOPY DIAGNOSTIC No follow-ups on file. Joy Dugan MD DATE: 01/17/22 TIME: 4:10 PM [facility] in [facility] Miscellaneous Notes* Telephone Encounter - Evelio Gordon RN - 12/15/2021 3:58 PM EDT Patient aware. Evelio Gordon RN * Telephone Encounter - Evelio Gordon RN - 12/15/2021 3:38 PM EDT Left message to call our office. Evelio Gordon RN * Telephone Encounter - Rufus Martinez MD - 12/15/2021 2:58 PM EDT Please let the patient know that the celiac screening from yesterday revealed a moderate to strong positive result. I would continue with the plans for gastroenterology visit (referral was placed yesterday). No additional blood work or stool testing required at this time. This note was partially generated using Method voice recognition system, and there may be some incorrect words, spellings, and punctuation that were not noted in checking the note before saving. Rufus Martinez MD documented in this encounterOur [facility] Miscellaneous Notes* Telephone Encounter - Abbey Alvarado Pss - 12/15/2021 11:25 AM EDT Patient declined to schedule with a personnel scheduler at this time due to location of provider and needs tocheck work schedule before scheduling.Stated she will call back to arrange this also provided [facility] phone number * Telephone Encounter - Emely Echols RN - 12/15/2021 11:21 AM EDT Patient returned the call and prefers to be seen within [facility]. Call [facility] to [facility] to assist withscheduling. Emely Echols RN * Telephone Encounter - Emely Echols RN - 12/15/2021 9:22 AM EDT Message left for patient to return call. Emely Ehcols RN * Telephone Encounter - Rufus Martinez MD - 12/14/2021 5:53 PM EDT Referral/s needed are listed below. Unless also noted below, the family has not yet decided on their preference in terms of location/provider, or has not had time to check with their insurance regarding restrictions. Once the family has made their decision, then precise arrangements, orders, etc. can be created. Referral to adult gastroenterology. Patient has a month-long history of small amounts of blood in the stool as well as diarrhea and abdominal pain after eating. Previous history shows positive celiacscreening in the year 2009. Pediatric gastroenterology evaluation had been obtained but biopsy was never completed. Repeat screening ordered today. This note was partially generated using Method voice recognition system, and there may be some incorrect words, spellings, and punctuation that were not noted in checking the note before saving. Rufus Martinez MD documented in this encounterOur [facility] History of Past illness Narrative* Problem Noted Date Diagnosed Date Resolved Date Tear of acetabular labrum 12/27/2015 04/26/2023 Palpitations 10/05/2013 08/26/2015 Constipation 09/26/2011 04/24/2022 documented as of this encounter (statuses as of 04/26/2023) [facility] History of Past illness Narrative* Problem Noted Date Diagnosed Date Resolved Date Tear of acetabular labrum 12/27/2015 04/26/2023 Palpitations 10/05/2013 08/26/2015 Constipation 09/26/2011 04/24/2022 documented as of this encounter (statuses as of 05/03/2023) [facility] History of Past illness Narrative* Problem Noted Date Diagnosed Date Resolved Date Tear of acetabular labrum 12/27/2015 04/26/2023 Palpitations 10/05/2013 08/26/2015 Constipation 09/26/2011 04/24/2022 documented as of this encounter (statuses as of 05/14/2023) [facility] History of Past illness Narrative* Problem Noted Date Diagnosed Date Resolved Date Tear of acetabular labrum 12/27/2015 04/26/2023 Palpitations 10/05/2013 08/26/2015 Constipation 09/26/2011 04/24/2022 documented as of this encounter (statuses as of 05/31/2023) [facility] History of Past illness Narrative* Problem Noted Date Diagnosed Date Resolved Date Tear of acetabular labrum 12/27/2015 04/26/2023 Palpitations 10/05/2013 08/26/2015 Constipation 09/26/2011 04/24/2022 documented as of this encounter (statuses as of 06/04/2023) [facility] History of Past illness Narrative* Problem Noted Date Diagnosed Date Resolved Date Tear of acetabular labrum 12/27/2015 04/26/2023 Palpitations 10/05/2013 08/26/2015 Constipation 09/26/2011 04/24/2022 documented as of this encounter (statuses as of 06/06/2023) [facility] History of Past illness Narrative* Problem Noted Date Diagnosed Date Resolved Date Tear of acetabular labrum 12/27/2015 04/26/2023 Palpitations 10/05/2013 08/26/2015 Constipation 09/26/2011 04/24/2022 documented as of this encounter (statuses as of 06/07/2023) [place] [address]-08-2016 History of Past illness Narrative* Problem Noted Date Diagnosed Date Resolved Date Tear of acetabular labrum 12/27/2015 04/26/2023 Palpitations 10/05/2013 08/26/2015 Constipation 09/26/2011 04/24/2022 documented as of this encounter (statuses as of 06/10/2023) [address]08-2016 History of Past illness Narrative* Problem Noted Date Diagnosed Date Resolved Date Tear of acetabular labrum 12/27/2015 04/26/2023 Palpitations 10/05/2013 08/26/2015 Constipation 09/26/2011 04/24/2022 documented as of this encounter (statuses as of 05/24/2023) [facility] of Past illness Narrative* Problem Noted Date Resolved Date Palpitations 10/05/2013 08/26/2015 documented as of this encounter (statuses as of 07/24/2021) [address]18-2014 History of Past illness Narrative* Problem Noted Date Resolved Date Palpitations 10/05/2013 08/26/2015 documented as of this encounter (statuses as of 07/26/2021) [facility] of Past illness Narrative* Problem Noted Date Resolved Date Palpitations 10/05/2013 08/26/2015 documented as of this encounter (statuses as of 09/25/2021) [address]18-2014 History of Past illness Narrative* Problem Noted Date Resolved Date Palpitations 10/05/2013 08/26/2015 documented as of this encounter (statuses as of 12/15/2021) [facility] of [facility] illness Narrative* Problem Noted Date Resolved Date Palpitations 10/05/2013 08/26/2015 documented as of this encounter (statuses as of 01/17/2022) [facility] of Past illness Narrative* Problem Noted Date Resolved Date Palpitations 10/05/2013 08/26/2015 documented as of this encounter (statuses as of 02/26/2022) [address]18-2014 History of Past illness Narrative* Problem Noted Date Resolved Date Palpitations 10/05/2013 08/26/2015 documented as of this encounter (statuses as of 03/05/2022) [address]18-2014 History of Past illness Narrative* Problem Noted Date Resolved Date Palpitations 10/05/2013 08/26/2015 Constipation 09/26/2011 04/24/2022 documented as of this encounter (statuses as of 04/25/2022) [address]18-2014 History of Past illness Narrative* Problem Noted Date Resolved Date Palpitations 10/05/2013 08/26/2015 Constipation 09/26/2011 04/24/2022 documented as of this encounter (statuses as of 05/04/2022) [place] [id number] History of Past illness Narrative* Problem Noted Date Resolved Date Palpitations 10/05/2013 08/26/2015 Constipation 09/26/2011 04/24/2022 documented as of this encounter (statuses as of 05/07/2022) [facility] of [facility] illness Narrative* Problem Noted Date Resolved Date Palpitations 10/05/2013 08/26/2015 Constipation 09/26/2011 04/24/2022 documented as of this encounter (statuses as of 05/09/2022) [facility] of Past illness Narrative* Problem Noted Date Resolved Date Palpitations 10/05/2013 08/26/2015 Constipation 09/26/2011 04/24/2022 documented as of this encounter (statuses as of 05/15/2022) [facility] of Past illness Narrative* Problem Noted Date Resolved Date Palpitations 10/05/2013 08/26/2015 Constipation 09/26/2011 04/24/2022 documented as of this encounter (statuses as of 05/22/2022) [place] [id number] History of Past illness Narrative* Problem Noted Date Resolved Date Palpitations 10/05/2013 08/26/2015 Constipation 09/26/2011 04/24/2022 documented as of this encounter (statuses as of 08/10/2022) [facility] note* Diagnosis Tuberculosis screening- Primary Screening examination for pulmonary tuberculosis [facility] Diagnosis Encounter for PPD skin test reading- Primary Other follow-up examination [facility]* Diagnosis Need for Tdap vaccination- Primary Need for prophylactic vaccination with combined cptusnqmay-iwfrwkr-bdlvaixpa (DTP) vaccine documented in this encounter [facility] note* Diagnosis Abdominal pain, lower- Primary Abdominal pain, other specified site Abdominal pain, unspecified abdominal location Abnormal laboratory test result Other abnormal clinical finding Bloody stool Blood in stool Diarrhea, unspecified type Celiac disease [facility]* Diagnosis Wellness examination- Primary Celiac disease Encounter to establish care Other reasons for seeking consultation [facility] Diagnosis Screening-pulmonary TB- Primary Screening examination for pulmonary tuberculosis documented in this encounter [facility] note* Diagnosis Screening examination for pulmonary tuberculosis- Primary documented in this encounter [facility] note* Diagnosis Screening examination for pulmonary tuberculosis- Primary documented in this encounter [facility] note* Diagnosis Screening examination for pulmonary tuberculosis- Primary documented in this encounter [facility] note* Diagnosis Screening examination for pulmonary tuberculosis- Primary documented in this encounter [facility] note* Diagnosis Pharyngitis, unspecified etiology- Primary documented in this encounter [facility] note* Diagnosis Wellness examination- Primary Encounter for immunization Need for other specified prophylactic vaccination against single bacterial disease Screening for STD (sexually transmitted disease) Screening examination for venereal disease Special screening examination for viral disease Special screening examination for unspecified viral disease Screening for HIV (human immunodeficiency virus) Special screening examination for other specified viral diseases Celiac disease documented in this encounter [facility] note* Diagnosis Encounter for immunization- Primary Need for other specified prophylactic vaccination against single bacterial disease documented in this encounter [facility] note* Diagnosis Need for vaccination- Primary Need for prophylactic vaccination and inoculation against unspecified single disease documented in this encounter [facility] note* Diagnosis Need for vaccination- Primary Need for prophylactic vaccination and inoculation against unspecified single disease documented in this encounter [facility] note* Diagnosis Dietary counseling- Primary Dietary surveillance and counseling Celiac disease documented in this encounter [facility] note* Diagnosis Screening examination for pulmonary tuberculosis- Primary documented in this encounter [facility] note* Diagnosis Screening examination for pulmonary tuberculosis- Primary documented in this encounter [facility] note* Diagnosis Screening-pulmonary TB- Primary Screening examination for pulmonary tuberculosis documented in this encounter [facility] note* Diagnosis Screening examination for pulmonary tuberculosis- Primary documented in this encounter [facility] note* Diagnosis Lump on neck- Primary Swelling, mass, or lump in head and neck Celiac disease documented in this encounter [facility] note* Diagnosis Lump on neck Swelling, mass, or lump in head and neck documented in this encounter [facility] note* Diagnosis Abdominal pain, unspecified abdominal location Abnormal laboratory test result Other abnormal clinical finding Bloody stool Blood in stool Diarrhea due to malabsorption Personal history of other diseases of digestive system documented in this encounter [facility] note* Diagnosis Screening-pulmonary TB- Primary Screening examination for pulmonary tuberculosis documented in this encounter [facility] note* Diagnosis Sinus congestion- Primary Other diseases of nasal cavity and sinuses Acute cough Rhinosinusitis Unspecified sinusitis (chronic) documented in this encounter [facility] note* Diagnosis Onset Date Resolution Status Admit Date Encounter for routine gynecological examination noneactive September 28, 2024 3:25pm [place] [employer] Work Phone: [employer] for referral (narrative)* Outpatient Procedure (Routine) - Authorized Specialty Diagnoses / Procedures Referred By Contac Referred To [facility] Diagnoses Abdominal pain, unspecified abdominal location Abnormal laboratory test result 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 Procedures COLONOSCOPY DIAGNOSTIC COLONOSCOPY FLX DX W/[place] [address] [place] [address] [place] [id number] Referral ID Status Reason Start Date Expiration Date Visits Requested Visits Authorized [id number] Authorized Auto-Generat ed Referral 2 01/17/2023 1 1 * Outpatient Procedure (Routine) - Pending Review Specialty Diagnoses / Procedures Referred By Contrd rhoades Referred To [facility] Diagnoses Abdominal pain, unspecified abdominal location Abnormal laboratory test result 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 Procedures EGD DIAGNOSTIC ESOPHAGOGASTRODUODENOSCOP Y TRANSORAL DIAGNOSTIC Joy Dugan MD [address] [place] [address] [address] Referral ID Status Reason Start Date Expiration Date Visits Requested Visits Authorized [id number] Pending Review Auto-Generat ed Referral 2 01/17/2023 1 1 [facility] for referral (narrative)* Diagnostic Procedure Only (Routine) - Authorized Specialty Diagnoses / Procedures Referred By Kamariac t Referred To Contact [facility] Diagnoses Lump on neck Procedures US HEAD/NECK SOFT TISSUE OTHER US SOFT TISSUE HEAD & NECK REAL TIME IMGE Argeins Bell APRN.CNP [address] [place] [address] [id number] Referral ID Status Reason Start Date Expiration Date Visits Requested Visits Authorized [id number] Authorized Auto-Generat ed Referral 08/05/2023 09/03/2024 1 1 [facility] for referral (narrative)* Outpatient Procedure (Routine) - Closed Specialty Diagnoses / Procedures [facility] Diagnoses Abdominal pain, unspecified abdominal location Abnormal laboratory test result 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 Procedures COLONOSCOPY DIAGNOSTIC COLONOSCOPY FLX DX W/COLL[place] [address] [place] [address] [place] [address] Referral ID Status Reason Start Date Expiration Date V isits Requested Visits Authorized [id number] Closed Auto-Generate d Referral 01/17/2022 01/17/2023 1 1 * Outpatient Procedure (Routine) - Closed Specialty Diagnoses / Procedures [facility] To Contact [facility] Diagnoses Abdominal pain, unspecified abdominal location Abnormal laboratory test result 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 Procedures EGD DIAGNOSTIC ESOPHAGOGASTRODUODENOSCOP Y TRANSORAL DIAGNOSTIC Joy Dugan MD [address] [place] [address] [place] [address] Referral ID Status Reason Start Date Expiration Date V isits Requested Visits Authorized [id number] Closed Auto-Generate d Referral 02/06/2022 08/05/2022 1 1 [facility] for referral (narrative)No reason for referral information [facility] Work Phone: Reason for visit Narrative* Diagnostic Procedure Only (Routine) - Closed Specialty Diagnoses / Procedures Referred By Zulema rhoades Referred To Contact [facility] Diagnoses Lump on neck Procedures US HEAD/NECK SOFT TISSUE OTHER US SOFT TISSUE HEAD & NECK REAL TIME IMGE DOCM Argenis Singh APRN.[employer] [address] [place] [address] [place] [address] Referral ID Status Reason Start Date Expiration Date V isits Requested Visits Authorized [id number] Closed Auto-Generate d Referral 08/05/2023 09/03/2024 1 1 [facility] for visit Narrative* Outpatient Procedure (Routine) - Closed Specialty Diagnoses / Procedures Referred By Zulema rhoades Referred To Contact [facility] Diagnoses Abdominal pain, unspecified abdominal location Abnormal laboratory test result 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 Procedures COLONOSCOPY DIAGNOSTIC COLONOSCOPY FLX DX W/COLLJ SPEC WHEN Joy Eduardo MD [address] [place] [address] [facility] [address] [place] [address] Referral ID Status Reason Start Date Expiration Date V isits Requested Visits Authorized [id number] Closed Auto-Generate d Referral 01/17/2022 01/17/2023 1 1 [facility] Medications Administered Section Administered Medications Medication Order MAR Action Action Date Dose Rate Site PPD ([place]) Intradermal Given 07/24/2021 14:12 EDT 0.1 mL Left arm Administered Medications Medication Order MAR Action Action Date Dose Rate Site tuberculin skin test (TST-PPD), purified protein derivative, intradermal Intradermal Given 05/07/2022 09:43 EDT 0.1 mL Right ar m Administered Medications Medication Order MAR Action Action Date Dose Rate Site tuberculin skin test (TST-PPD), purified protein derivative, intradermal Intradermal Given 05/22/2022 10:32 EDT 0.1 mL Right arm Reason for Referral Specialty Diagnoses / Procedures Referred By Zulema rhoades Referred To Contact Nutrition Diagnoses Celiac disease Procedures CONSULT TO NUTRITION THERAPY MEDICAL NUTRITION ASSMT&IVNTJ INDIV EACH 15 CT MEDICAL NUTRITION ASSMT&IVNTJ INDIV EACH 15 CT MEDICAL NUTRITION ASSMT&IVNTJ INDIV EACH 15 CT MEDICAL NUTRITION ASSMT&IVNTJ INDIV EACH 15 CT Kamala Peña APRN.STATISTICAL GENETICIST [address] [place] [address] Referral ID Status Reason Start Date Expiration Date Visits Requested Visits Authorized [id number] Authorized PCP Requested Referral 04/26/2023 04/25/2024 1 1 Summary Purpose Family History No Family History Records FoundNo Family History Records FoundNo Family History Records Found Advance Directives No Advanced Directives Records FoundNo Advanced Directives Records FoundNo Advanced Directives Records Found Chief Complaint and Reason for Visit Chief Complaint Admit Date Annual (CAR [employer]) September 28, 2024 3: 25pm Reason for Visit Admit Date Encounter for routine gynecological exam ination September 28, 2024 3:25pm Additional Source Comments Source Comments (unrecognize d section and content) In the event this informatio n is protected by the Federal Confidentiality of Alcohol and Drug Abuse Patient Records regulations: The Federal rules restrict any use of the information to criminally investigate or prosecute any alcohol or drug abuse patient.[facility]In the event this information is protected by the Federal Confidentiality of Alcohol and Drug Abuse Patient Records regulations: The Federal rules restrict any use of the information to criminally investigate or prosecute any alcohol or drug abuse patient.[facility] AndersonIn the event this information is protected by the Federal Confidentiality of Alcohol and Drug Abuse Patient Records regulations: The Federal rules restrict any use of the information to criminally investigate or prosecute any alcohol or drug abuse patient.[facility] AndersonIn the event this information is protected by the Federal Confidentiality of Alcohol and Drug Abuse Patient Records regulations: The Federal rules restrict any use of the information to criminally investigate or prosecute any alcohol or drug abuse patient.[facility] AndersonIn the event this information is protected by the Federal Confidentiality of Alcohol and Drug Abuse Patient Records regulations: The Federal rules restrict any use of the information to criminally investigate or prosecute any alcohol or drug abuse patient.[facility] AndersonIn the event this information is protected by the Federal Confidentiality of Alcohol and Drug Abuse Patient Records regulations: The Federal rules restrict any use of the information to criminally investigate or prosecute any alcohol or drug abuse patient.[facility] AndersonIn the event this information is protected by the Federal Confidentiality of Alcohol and Drug Abuse Patient Records regulations: The Federal rules restrict any use of the information to criminally investigate or prosecute any alcohol or drug abuse patient.[facility] AndersonIn the event this information is protected by the Federal Confidentiality of Alcohol and Drug Abuse Patient Records regulations: The Federal rules restrict any use of the information to criminally investigate or prosecute any alcohol or drug abuse patient.[facility] AndersonIn the event this information is protected by the Federal Confidentiality of Alcohol and Drug Abuse Patient Records regulations: The Federal rules restrict any use of the information to criminally investigate or prosecute any alcohol or drug abuse patient.[facility] AndersonIn the event this information is protected by the Federal Confidentiality of Alcohol and Drug Abuse Patient Records regulations: The Federal rules restrict any use of the information to criminally investigate or prosecute any alcohol or drug abuse patient.[facility] AndersonIn the event this information is protected by the Federal Confidentiality of Alcohol and Drug Abuse Patient Records regulations: The Federal rules restrict any use of the information to criminally investigate or prosecute any alcohol or drug abuse patient.[facility] AndersonIn the event this information is protected by the Federal Confidentiality of Alcohol and Drug Abuse Patient Records regulations: The Federal rules restrict any use of the information to criminally investigate or prosecute any alcohol or drug abuse patient.[facility] AndersonIn the event this information is protected by the Federal Confidentiality of Alcohol and Drug Abuse Patient Records regulations: The Federal rules restrict any use of the information to criminally investigate or prosecute any alcohol or drug abuse patient.[facility] AndersonIn the event this information is protected by the Federal Confidentiality of Alcohol and Drug Abuse Patient Records regulations: The Federal rules restrict any use of the information to criminally investigate or prosecute any alcohol or drug abuse patient.[facility] AndersonIn the event this information is protected by the Federal Confidentiality of Alcohol and Drug Abuse Patient Records regulations: The Federal rules restrict any use of the information to criminally investigate or prosecute any alcohol or drug abuse patient.[facility] AndersonIn the event this information is protected by the Federal Confidentiality of Alcohol and Drug Abuse Patient Records regulations: The Federal rules restrict any use of the information to criminally investigate or prosecute any alcohol or drug abuse patient.[facility] AndersonIn the event this information is protected by the Federal Confidentiality of Alcohol and Drug Abuse Patient Records regulations: The Federal rules restrict any use of the information to criminally investigate or prosecute any alcohol or drug abuse patient.[facility] AndersonIn the event this information is protected by the Federal Confidentiality of Alcohol and Drug Abuse Patient Records regulations: The Federal rules restrict any use of the information to criminally investigate or prosecute any alcohol or drug abuse patient.[facility] AndersonIn the event this information is protected by the Federal Confidentiality of Alcohol and Drug Abuse Patient Records regulations: The Federal rules restrict any use of the information to criminally investigate or prosecute any alcohol or drug abuse patient.[facility] AndersonIn the event this information is protected by the Federal Confidentiality of Alcohol and Drug Abuse Patient Records regulations: The Federal rules restrict any use of the information to criminally investigate or prosecute any alcohol or drug abuse patient.[facility] AndersonIn the event this information is protected by the Federal Confidentiality of Alcohol and Drug Abuse Patient Records regulations: The Federal rules restrict any use of the information to criminally investigate or prosecute any alcohol or drug abuse patient.[facility] AndersonIn the event this information is protected by the Federal Confidentiality of Alcohol and Drug Abuse Patient Records regulations: The Federal rules restrict any use of the information to criminally investigate or prosecute any alcohol or drug abuse patient.[facility] AndersonIn the event this information is protected by the Federal Confidentiality of Alcohol and Drug Abuse Patient Records regulations: The Federal rules restrict any use of the information to criminally investigate or prosecute any alcohol or drug abuse patient.[facility] AndersonIn the event this information is protected by the Federal Confidentiality of Alcohol and Drug Abuse Patient Records regulations: The Federal rules restrict any use of the information to criminally investigate or prosecute any alcohol or drug abuse patient.[facility] AndersonIn the event this information is protected by the Federal Confidentiality of Alcohol and Drug Abuse Patient Records regulations: The Federal rules restrict any use of the information to criminally investigate or prosecute any alcohol or drug abuse patient.[facility] AndersonIn the event this information is protected by the Federal Confidentiality of Alcohol and Drug Abuse Patient Records regulations: The Federal rules restrict any use of the information to criminally investigate or prosecute any alcohol or drug abuse patient.[facility] AndersonIn the event this information is protected by the Federal Confidentiality of Alcohol and Drug Abuse Patient Records regulations: The Federal rules restrict any use of the information to criminally investigate or prosecute any alcohol or drug abuse patient.[facility] AndersonIn the event this information is protected by the Federal Confidentiality of Alcohol and Drug Abuse Patient Records regulations: The Federal rules restrict any use of the information to criminally investigate or prosecute any alcohol or drug abuse patient.[facility] AndersonIn the event this information is protected by the Federal Confidentiality of Alcohol and Drug Abuse Patient Records regulations: The Federal rules restrict any use of the information to criminally investigate or prosecute any alcohol or drug abuse patient.[facility] AndersonIn the event this information is protected by the Federal Confidentiality of Alcohol and Drug Abuse Patient Records regulations: The Federal rules restrict any use of the information to criminally investigate or prosecute any alcohol or drug abuse patient.[facility] AndersonIn the event this information is protected by the Federal Confidentiality of Alcohol and Drug Abuse Patient Records regulations: The Federal rules restrict any use of the information to criminally investigate or prosecute any alcohol or drug abuse patient.[facility] Care Teams (unrecognized sec tion and content) Trade Clerk Relationship Specialty Start Date End Date Rufus Martinez MD [address] [place], [place] [id number] PCP - General 12/12/01 Trade Clerk Relationship Specialty Start Date End Date Rufus Martinez MD [address] [place], [place] [address] PCP - General 12/12/01 Trade Clerk Relationship Specialty Start Date End Date Rufus Martinez MD [address] [place], [place] [id number] PCP - General 12/12/01 Trade Clerk Relationship Specialty Start Date End Date Rufus Martinez MD [address] [place], [place] [id number] PCP - General 12/12/01 Trade Clerk Relationship Specialty Start Date End Date Rufus Martinez MD [address] [place] [address] PCP - General 12/12/01 Trade Clerk Relationship Specialty Start Date End Date Rufus Martinez MD [address] [place] [address] PCP - General 12/12/01 Trade Clerk Relationship Specialty [place] [address] [place] [address], [place] [address] PCP - General 12/12/01 Trade Clerk Relationship Specialty Start Date End Date Varghese Rowley MD [address] [place] [address], [place] [address] PCP - General Internal Medicine 04/24/22 Trade Clerk Relationship Specialty Start Date End Date Varghese Rowley MD [address] [place] [id number] PCP - General Internal Medicine 04/24/22 Trade Clerk Relationship Specialty Start Date End Date Varghese Rowley MD [address] [place] [id number] PCP - General Internal Medicine 04/24/22 Trade Clerk Relationship Specialty Start Date End Date Varghese Rowley MD [address] [place] [id number] PCP - General Internal Medicine 04/24/22 Trade Clerk Relationship Specialty Start Date End Date Varghese Rowley MD [address] [place] [id number] PCP - General Internal Medicine 04/24/22 Trade Clerk Relationship Specialty Start Date End Date Varghese Rowley MD [address] [place] [id number] PCP - General Internal Medicine 04/24/22 Trade Clerk Relationship Specialty Start Date End Date Varghese Rowley MD [address] [place] [address] PCP - General Internal Medicine 04/24/22 Trade Clerk Relationship Specialty Start Date End Date Varghese Rowley MD [address] [place] [address] PCP - General Internal Medicine 04/24/22 Trade Clerk Relationship Specialty Start Date End Date Varghese Rowley MD [address] [place] [address] PCP - General Internal Medicine 04/24/22 Trade Clerk Relationship Specialty Start Date End Date Varghese Rowley MD [address] [place] [address] PCP - General Internal Medicine 04/24/22 Trade Clerk Relationship Specialty Start Date End Date Varghese Rowley MD [address] [place] [address] PCP - General Internal Medicine 04/24/22 Trade Clerk Relationship Specialty Start Date End Date Varghese Rowley MD [address] [place] [address] PCP - General Internal Medicine 04/24/22 Trade Clerk Relationship Specialty Start Date End Date Varghese Rowley MD [address] [place] [address] PCP - General Internal Medicine 04/24/22 Trade Clerk Relationship Specialty Start Date End Date Rufus Martinez MD [address] [place] [address] PCP - General 12/12/01 04/23/22 Trade Clerk Relationship Specialty Start Date End Date Varghese Rowley MD [address] [place], [place] [id number] PCP - General Internal Medicine 04/24/22 Trade Clerk Relationship Specialty Start Date End Date Varghese Rowley MD [address] [place], [place] [id number] PCP - General Internal Medicine 04/24/22 Team Status: Active Member Role/Relationship Status Dates Dr. Rufus Martinez MD Family Provider Active Dr. Rufus Martinez MD Primary Care Provider Active Team Status: Inactive Member Role/Relationship Status Dates Dr. Rufus Martinez MD Primary Care Provider Active Start: September 28, 2024 End: September 28, 2024 Dr. Rufus Martinez MD Referring Provider Active Start: September 28, 2024 End: September 28, 2024 Lenore Au NP, NP-C Attending Provider Active Start: September 28, 2024 End: September 28, 2024 Team Status: Inactive Member Role/Relationship Status Dates Dr. Rufus Martinez MD Primary Care Provider Active Start: September 28, 2024 End: September 28, 2024 Lenore Au NP, NP-C Attending Provider Active Start: September 28, 2024 End: September 28, 2024 Reason for Visit (unrecogniz ed section and content) Reason Comments PPD Read Reason Comments Referral Request Reason Comments Abnormal results Reason Comments Abdominal Pain Bloody stool, diarrh ea-Referral in Epic Specialty Diagnoses / Procedures Referred By Zulema rhoades Referred To Contact Gastroenterology Diagnoses Abdominal pain, unspecified abdominal location Abnormal laboratory test result Bloody stool Diarrhea, unspecified type Procedures CONSULT TO GASTROENTEROLOGY OFFICE/OUTPATIENT [facility] 60-74 MINUTES Rufus Martinez MD [address] [place] [address] Referral ID Status Reason Start Date Expiration Date V isits Requested Visits Authorized [id number] Closed PCP Requested Referral 12/14/2021 12/14/2022 1 1 Reason Comments Opened In Error Reason Comments Establish Care needs a pre-employme nt for completed Reason Comments Orders Reason Comments Imm/Inj Reason Comments Sore Throat Bilateral ear pain x 1 week Reason Comments Physical Reason Comments Assessment Patient Education Specialty Diagnoses / Procedures Referred By Contac t Referred To Contact Nutrition Diagnoses Celiac disease Procedures CONSULT TO NUTRITION THERAPY MEDICAL NUTRITION ASSMT&IVNTJ INDIV EACH 15 CT MEDICAL NUTRITION ASSMT&IVNTJ INDIV EACH 15 CT MEDICAL NUTRITION ASSMT&IVNTJ INDIV EACH 15 [address] MEDICAL NUTRITION ASSMT&IVNTJ INDIV EACH 15 CT Kamala Peña, CHRISTY.STATISTICAL GENETICIST [address] [place] [address] Referral ID Status Reason Start Date Expiration Date V isits Requested Visits Authorized [id number] Closed PCP Requested Referral 04/26/2023 04/25/2024 1 1 Reason Comments Follow Up gi issues- dx with c eliac and lump on collar bone Reason Comments Results Reason Comments Sinus Infection Entered by patient Sinus Problem Sinus issues x 10 da ys Administered Medications Administered Medications (un recognized section and content) Medication Order MAR Action Action Date Dose Rate Site tuberculin skin test (TST-PPD), purified protein derivative, intradermal Intradermal Given 06/05/2023 15:50 EDT 0.1 mL Right ar m INFORMATION SOURCE (unrecogn ized section and content) DATE CREATED AUTHOR 08/12/2023 [facility] DATE CREATED AUTHOR AUTHOR'S ORGANIZ ATION 12/20/2024 [facility] DATE CREATED AUTHOR AUTHOR'S ORGANIZ ATION 12/26/2024 [facility] Goals (unrecognized section and content) Goals may be documented in a n alternate sectionGoals may be documented in an alternate section FOR RECORDS PERTAINING TO PATIENTS [...] BE BASED ON THE PRIMARY CLINICAL RECORDS. [facility] [employer] [facility]. provides no warranty or guarantee of the accuracy or completeness of information in this document.
--- NOTE | 2025-02-04 07:37 | US_ITS ---
PROCEDURE: TRANSVAGINAL NON- 02/04/2025 REASON FOR EXAM: OVARIAN CYST Follow-up examination. TECHNIQUE: Procedure Code: USTVAG Modality: US Procedure: TRANSVAGINAL NON- COMPARISON: December 11, 2024. FINDINGS: LMP: January 01, 2025 Measurements: Uterus: 7.1 cm x 4.6 cm x 3.9 cm with a volume of 66.5 mL Endometrial Thickness: 8 mm. It is trilaminar. Right Ovary: 2.7 cm x 1.8 cm x 2 cm with a volume of 5.2 mL. Left Ovary: 3.5 cm x 3 cm x 2 cm with a volume of 11.3 mL. Uterus: Normal size, myometrial echotexture, and contour. Endometrium: Unremarkable. Right ovary: Normal size and echotexture. Left ovary: Normal size and echotexture. Other: No large pelvic mass identified. US/Transvaginal Non- IMPRESSION: NORMAL transvaginal PELVIC ULTRASOUND. Reading Location: [id number]
== END | disposition home or self-care (01) ==
LOC: US 07:27
PROVIDERS: PCP Internal Medicine; Referring Provider Obstetrics & Gynecology; Visit Provider Obstetrics & Gynecology
DX: N83.209 Unspecified ovarian cyst, unspecified side (principal)
CPT/HCPCS: 76830